=== PATIENT | female | born 1950 | race Caucasian/White ===

== ENCOUNTER 2022-02-04 12:33 | Emergency (ER) | payer OTHER, SELFPAY ==
[2022-02-04 12:37] VITALS: BP 108/69; PULSE 56; RESP 14; TEMP 36.5; O2SAT 97; BMI 33.4
--- NOTE | 2022-02-04 12:49 | EKG12_ITS ---
Test Reason : SOB Blood Pressure : / mmHG Vent. Rate : 054 BPM Atrial Rate : 054 BPM P-R Int : 136 ms QRS Dur : 080 ms QT Int : 438 ms P-R-T Axes : 041 023 040 degrees QTc Int : 415 ms Sinus bradycardia Otherwise normal ECG Confirmed by HAFSA GUIDRY, KATHERINE ([id number]), food expeditor JIAN ORTEZ ([id number]) on 02/06/2022 9:18:06 AM Referred By: Confirmed By:KATHERINE PEREYRA MD
--- NOTE | 2022-02-04 12:50 | ED.VIS.DYS ---
HPI History of Present Illness Chief Complaint: Shortness of Breath Informant: patient Onset/Context/Timing Onset: Yesterday Context: sudden and onset Timing: Intermittent Quality: Positive for - (Feeling short of breath) Current Severity: Gone Maximum Severity: Moderate Worsened by: - (Stress) Relieved by: Nothing Associated Symptoms Negative for cough Chest Pain: Positive for None Narrative Narrative: Patient with intermittent dyspnea, she thinks it is caused by stress. She is homeless, she has been sleeping in a motel she states that she has no more money to pay for that now so tonight she will be sleeping in her car. She thinks it is causing stress that is causing her to feel short of breath, but she has a history of atrial fibrillation, she is on Xarelto and has been compliant with that, and wonders if she is going in and out of atrial fibrillation or having something else happened. She denies any chest discomfort, palpitations, lightheadedness or near syncope/syncope, leg pain or swelling, recent immobilization, cough, fevers. She feels very fatigued however. [facility] Medical History (Updated 02/04/22 @ 14:[address] Demario Moreira MD) Atrial fibrillation Allergy/AdvReac Type Severity Reaction Status Date / Time amoxicillin [From Amoxil] Allergy Hives Verified 02/04/22 12:36 doxycycline Allergy Hives Verified 02/04/22 12:36 tramadol Allergy Hives Verified 02/04/22 12:37 azithromycin AdvReac Nausea Verified 02/04/22 12:36 codeine AdvReac Itching Verified 02/04/22 12:37 [id number] Reductase AdvReac Other Verified 02/04/22 12:36 Inhibitor Social History Smoking Status: Never smoker ROS ROS ED Constitutional Constitutional ED: Denies chills or fever(s) Eyes Eyes: Denies change in vision or diplopia ENT ENT ED: Denies rhinorrhea or sore throat Cardiovascular Cardiovascular: Denies chest pain, palpitations or racing heartbeat Respiratory/Chest Respiratory/Chest: Reports as per HPI and dyspnea; Denies cough or dyspnea on exertion Gastrointestinal Gastrointestinal: Denies abdominal pain, diarrhea, nausea or vomiting Genitourinary Genitourinary ED: Denies dysuria or hematuria Musculoskeletal Musculoskeletal: Denies back pain or neck pain Integumentary Denies abscess or rash Neurologic Neurologic: Denies headache(s), paresthesias or weakness Psychiatric Psychiatric: Reports anxiety and depression; Denies suicidal ideation or suicidal thoughts EXAM Physical Exam Const Vital Signs: 02/04/22 12:37 02/04/22 13:32 02/04/22 13:33 Temperature 97.7 F L Temperature Source Temporal Pulse Rate 56 L Respiratory Rate 14 Respiratory Effort Normal Non-Labored Respiratory Depth Normal Respiratory Pattern Normal Blood Pressure 108/69 Blood Pressure Mean 82 Pulse Ox 97 94 Oxygen Delivery Method Room Air Room Air Room Air Positive well nourished and well developed General Appearance ED: well developed and NAD HEENT Reports moist mucous membranes normocephalic and atraumatic Eyes PERRL and EOMs intact bilaterally Neck full ROM and supple Resp normal respiratory effort and clear to auscultation bilaterally Cardio regular rate, regular rhythm and no murmurs Cardio Narrative: Borderline bradycardia GI non-tender and non-distended Auscultation: normoactive bowel sounds Palpation: soft Back/Spine no CVA tenderness General Back: other FROM Extremity normal to inspection General Extremety ED: Negative for edema, pulses abnormal or tenderness General Extremity: Negative for edema or pulses abnormal Neuro oriented x3, CN's II-XII intact bilaterally, no sensory deficits noted and gait normal Sensorium / Orientation: awake and alert Motor Exam: strength 5/5 throughout Psych mental status grossly normal Skin no rashes or lesions noted and no wounds MDM MDM MDM Narrative Medical decision making narrative: EKG and troponin normal, not in A. fib and no telemetry events while here in the ED. Chest x-ray normal on my interpretation 1 view. Radiology in agreement. Labs are unremarkable except for mild leukopenia nonspecific. She has no clinical signs of a DVT nor risk factors for thromboembolic disease, pulse ox is 97% on room air, and she is not tachycardic. For these reasons I do not think we need to work-up for pulmonary embolus for the symptoms. Patient is reassured and discharged, we do not have social work available today to help her with regards to her social issues, nursing to give her information for local intermediate. Lab Data Attestation: I reviewed the patient's lab results. Labs: Laboratory Results - last 24 hr 02/04/22 02/04/22 13:25 13:25 WBC 3.1 L RBC 4.36 Hgb 13.2 Hct 40.0 MCV 91.7 MCH 30.3 MCHC 33.0 RDW Std Deviation 42.8 RDW Coeff of Kristian 12.9 Plt Count 138 L MPV 10.7 Immature Gran % (Auto) 0.300 Neut % (Auto) 69.8 Lymph % (Auto) 19.1 [place] % (Auto) 8.3 Eos % (Auto) 2.2 Baso % (Auto) 0.3 Absolute Neuts (auto) 2.2 Absolute Lymphs (auto) 0.60 L Nucleated RBC % 0 Sodium 143 Potassium 4.2 Chloride 109 H Carbon Dioxide 30.0 Anion Gap 4 L BUN 14 Creatinine 1.11 H Estim Creat Clear Calc 39.01 Est GFR (MDRD) Af Amer 62 Est GFR (MDRD) Non-Af 52 L BUN/Creatinine Ratio 12.6 Glucose 88 Calcium 8.6 Troponin I High Sens 6 Radiography Chest X-Ray - ED: 1 View, Read by ED Physician, No Acute Disease and No Infiltrates Diagnostic Testing: Clinical Impression(s) from Imaging Studies Chest X-Ray 02/04/22 13:08 IMPRESSION: No acute cardiopulmonary process identified. Borderline cardiomegaly. Electronically Signed: Rachel Wiley MD at 13:23 EDT Reading Location ID and State: [facility] / [place] Tel , Service support , Rhythm Strip Rhythm Strip: Sinus Rhythm Rate: 55 Ectopy: None EKG Initial EKG: Attestation: I personally reviewed and interpreted this EKG as follows: Interpretation: Sinus Rhythm and No Acute Injury Pattern Discharge Plan Triage Chief Complaint: Shortness of Breath ED Provider: Demario Moreira Dx/Rx/DC Orders Clinical Impression: Dyspnea, Anxiety Instructions: ED Anxiety Reaction, ED Dyspnea Primary Care Provider: Care Physician,No Primary Referrals: Dee Albert [Non-Staff] - 1 Week if not improving Care Physician,No Primary [Primary Care Provider] - Disposition Disposition: Home, Self Care
--- NOTE | 2022-02-04 13:08 | RAD_ITS ---
HISTORY: chest pain. TECHNIQUE: XR Chest 1 View. COMPARISON: None. FINDINGS: CARDIOMEDIASTINAL BORDERS: Cardiac silhouette upper limits of normal in size with mitral valvular calcification. Mediastinal contour unremarkable with calcification of the aortic knob. LUNGS: Radiographically clear. PLEURA: No pleural effusion or pneumothorax seen. OSSEOUS STRUCTURES: Cervical spinal fusion hardware. RAD/Chest 1 View (Portable) IMPRESSION: No acute cardiopulmonary process identified. Borderline cardiomegaly. Electronically Signed: Rachel Wiley MD at 13:23 EDT ,
[2022-02-04 13:32] VITALS: O2SAT 94
[2022-02-04 13:33] VITALS: O2SAT 95
--- NOTE | 2022-02-04 13:38 | ED.RN ---
PER PT SHE AND HER SISTER (ALSO IN THE ED FOR STROKE ALERT) ARE HOMELESS. THEY WERE STAYING IN A HOTEL AFTER BEING KICKED OUT OF DAUGHTER'S HOME BY SON IN LAW. PT STATES SHE WILL RECEIVE A CHECK ON SUNDAY BUT UNTIL THEN HAS NOWHERE TO STAY, AND NO FUNDS. PT STATES THEY HAVE APPLIED AND ARE IN PROCESS OF GETTING AN APARTMENT. PT CALLED MAGDY ALONZO AND Brendan WITH THIS RN IN ROOM, NEITHER HAS ANY OPEN BEDS. 180 ATTEMPTED TO GIVE PT LIST OF SHELTERS OUTSIDE OF [facility], BUT PT STATES SHE DOESN'T HAVE ENOUGH GAS TO LEAVE [facility]. PT AND SISTER ALSO HAVE 3 DOGS AND 2 CATS IN VEHICLE PARKED OUTSIDE OF ED. JUDGE PAGED TO CALL THIS RN REGARDING SITUATION.
[2022-02-04 13:42] LABS: Absolute Neutrophil Count 2.2 X10^3/uL (2.0-7.7); Basophil# 0.01 X10^3/uL; Basophil% 0.3 % (0-1); Eosinophil# 0.07 X10^3/uL; Eosinophils% 2.2 % (0-5); Hemoglobin 13.2 g/dL (12.0-15.0); Lymphocyte % 19.1 % (19-41); Mean Corpuscular Hgb 30.3 pg (27.0-32.0); Mean Corpuscular Volume 91.7 fL (81-99); Mean Platelet Vol. 10.7 fl (6.2-12.0); Monocyte# 0.26 X10^3/uL; Monocyte% 8.3 % (0-10); NRBC Flagged by Analyzer 0 % (0-5); Neutrophil # 2.19 X10^3/uL (2.7-7.7); Neutrophil % 69.8 % (47-70); POSITIVE DIFFERENTIAL YES; Platelet Count 138 K/mm3 (150-450); RBC Distribution Width CV 12.9 % (11.6-14.6); RBC Distribution Width SD 42.8 fl (35.1-43.9); Red Blood Count 4.36 M/mm3 (4.2-5.4); White Blood Count 3.1 K/mm3 (4.4-11.0)
[2022-02-04 13:45] LABS: Differential Indicated SCAN CRITERIA MET
[2022-02-04 13:53] LABS: Anion Gap 4 (5-15); BUN 14 mg/dL (7-18); BUN/Creat Ratio 12.6 RATIO (10-20); Calcium,Total 8.6 mg/dL (8.5-10.1); Chloride 109 mmol/L (98-107); Creatinine, Serum 1.11 mg/dL (0.55-1.02); EST Glomerular Filtration Rate 52 mL/min (>60); Est Glom Filt Rate - Afr Amer 62 mL/min (>60); Estimated Creatinine Clearance 39.01 ml/min; Glucose 88 mg/dL (74-106); Potassium 4.2 mmol/L (3.5-5.1); Sodium Level 143 mmol/L (136-145); Troponin-I HS 6 pg/mL (3.0-54.0)
[2022-02-04 14:33] LABS: Anisocytosis 3.1; Burr Cells 3.1; Reactive Lymphocyte 1+
--- NOTE | 2022-02-04 15:15 | ED.RN ---
PER CHAIN TENDER PT ABLE TO STAY IN SISTER'S HOSP ROOM OVER WEEKEND. CLAIM TAKER TO COME GET DOGS, [employer] DECLINES CATS UNLESS PT ABLE TO SURRENDER. PT AWARE, FOOD GIVEN,
[2022-02-06 11:53] LABS: Pathologist Review Reviewed
== END 2022-02-04 15:19 | disposition home or self-care (01) ==
PROVIDERS: Emergency Provider Emergency Medicine; Visit Provider Emergency Medicine
DX: R06.00 Dyspnea, unspecified (principal); F41.9 Anxiety disorder, unspecified; Z59.00 Homelessness unspecified
CPT/HCPCS: 71045; 80048; 84484; 85025; 87811; 93005; 99284; A4216

== ENCOUNTER 2022-03-16 12:14 | Emergency (ER) | payer OTHER, SELFPAY ==
[2022-03-16 12:14] VITALS: BP 136/108; PULSE 81; RESP 18; TEMP 39; O2SAT 97; BMI 32.9
--- NOTE | 2022-03-16 12:52 | EKG12_ITS ---
Test Reason : WEAKNESS Blood Pressure : / mmHG Vent. Rate : 082 BPM Atrial Rate : 082 BPM P-R Int : 134 ms QRS Dur : 074 ms QT Int : 342 ms P-R-T Axes : 044 039 060 degrees QTc Int : 399 ms Normal sinus rhythm Normal ECG Confirmed by TINO GUIDRY, DYLAN ([id number]), sound editor JIAN ORTEZ ([id number]) on 03/21/2022 10:35:36 AM Referred By: CARLYLE Confirmed By:DARLENE JIMÉNEZ MD
--- NOTE | 2022-03-16 12:53 | EDS_ITS ---
HPI History of Present Illness Chief Complaint: Fall Narrative Narrative: 71-year-old female presenting with generalized weakness. She states she has been feeling ill for about 10 hours. She has no sick contacts. She states she has a mild cough, shortness of breath. She had a fever at home today. She took Tylenol about 4 hours ago. She states she felt weak and fell to the floor landing on her buttocks. Initially she complained of back pain and hip pain but now states it is all resolved. She states she has vomited today. She states she was getting ready to go to the grocery store when she felt nauseous and vomited. She denies head injury or LOC. She states she might of had chest pain right before she fell. [facility] Medical History Atrial fibrillation Home Medications acetaminophen 500 mg tablet 1,000 mg PO Q8H PRN PRN fever or pain #60 tabs 03/16/22 [Rx Last Taken Unknown] diphenhydramine HCl 50 mg capsule 50 - 100 mg PO QHS PRN ALLERGIES 03/16/22 [History Last Taken Unknown] gabapentin 300 mg capsule 300 mg PO BID 03/16/22 [History Last Taken Unknown] ibuprofen 600 mg tablet 600 mg PO Q8H PRN PRN fever or pain #30 tabs 03/16/22 [Rx Last Taken Unknown] levofloxacin 750 mg tablet 750 mg PO DAILY #4 tabs 03/16/22 [Rx Last Taken Unknown] levothyroxine 75 mcg tablet 75 mcg PO DAILY 03/16/22 [History Last Taken Unknown] lisinopril 20 mg tablet 20 mg PO DAILY 03/16/22 [History Last Taken Unknown] metoprolol succinate 50 mg capsule sprinkle, ext. release 24 hr 50 mg PO DAILY 03/16/22 [History Last Taken Unknown] omeprazole 20 mg capsule,delayed release 20 mg PO BID 03/16/22 [History Last Taken Unknown] ondansetron 4 mg disintegrating tablet 4 mg PO Q8H PRN nausea and vomiting #14 tabs 03/16/22 [Rx Last Taken Unknown] rivaroxaban 20 mg tablet (Xarelto) 20 mg PO DAILY 03/16/22 [History Last Taken Unknown] Allergy/AdvReac Type Severity Reaction Status Date / Time amoxicillin [From Amoxil] Allergy Hives Verified 03/16/22 12:22 doxycycline Allergy Hives Verified 03/16/22 12:22 tramadol Allergy Hives Verified 03/16/22 12:22 azithromycin AdvReac Nausea Verified 03/16/22 12:22 codeine AdvReac Itching Verified 03/16/22 12:22 [id number]-AJC-FpW Reductase AdvReac Other Verified 03/16/22 12:22 Inhibitor Social History Smoking Status: Never smoker ROS ROS ED Constitutional Constitutional ED: Reports fever(s) and other Details: Generalized weakness Eyes Eyes: Denies change in vision or diplopia ENT ENT ED: Denies rhinorrhea or sore throat Cardiovascular Cardiovascular: Reports chest pain Respiratory/Chest Respiratory/Chest: Reports cough and dyspnea Gastrointestinal Gastrointestinal: Reports nausea and vomiting Genitourinary Genitourinary ED: Denies dysuria or hematuria Musculoskeletal Musculoskeletal: Denies neck pain Integumentary Denies Abrasions or rash Neurologic Neurologic: Reports headache(s); Denies paresthesias Psychiatric Psychiatric: Denies anxiety or depression EXAM Physical Exam Const Vital Signs: 03/16/22 12:14 03/16/22 12:33 03/16/22 13:01 Temperature 102.2 F H Temperature Source Oral Pulse Rate 81 Respiratory Rate 18 Respiratory Effort Normal Blood Pressure 136/108 H Blood Pressure Mean 117 Pulse Ox 97 94 Oxygen Delivery Method Room Air Room Air Positive well nourished General Appearance ED: NAD; Negative for pallor HEENT Reports dry mucous membranes Negative for trauma Mouth ED: Yes dry mucous membranes Mouth: dry mucous membranes Eyes PERRL and EOMs intact bilaterally Neck no lymphadenopathy Chest Wall inspection of chest normal Resp normal respiratory effort Resp Narrative: Rhonchi noted to left abdomen. Mid and lower lung moralez. Effort and Inspection: Negative for retractions Auscultation: rhonchi; Negative for wheezes Cardio regular rate and regular rhythm GI normal to inspection, nondistended, normoactive bowel sounds Extremity normal to inspection Neuro oriented x3 and CN's II-XII intact bilaterally Sensorium / Orientation: alert Psych mental status grossly normal Skin no rashes or lesions noted and no wounds General Skin Exam: Negative for jaundice or pallor MDM MDM MDM Narrative Medical decision making narrative: Patient presenting with generalized weakness, fever, body aches. She states she had a mechanical fall but states she does not have any more pain in her buttocks or her back. She is able to move her lower extremities although she feels generally weak. Blood work is obtained and her CBC is within normal limits. Renal function electrolytes are normal. Because she stated she had some pain prior to falling I did obtain a troponin which is 10. On my interpretation EKG sinus rhythm with a ventricular rate of 82 bpm without sign of ischemic change or dysrhythmia. Chest x-ray on my interpretation shows a left lower lobe infiltrate. CBC was obtained and her white blood cell 6.9. Hemoglobin hematocrit are stable. Platelets slightly low at 108. Creatinine 1.12 and at baseline. Electrolytes are normal. High-sensitivity troponin initially 10. 2- hour high-sensitivity troponin is 12. There is no significant interval change. D-dimer was elevated today at 0.91 so I did obtain a CTA. This also shows left lower lobe infiltrate. Patient's rapid COVID and influenza are negative. She was ambulated in the hallway and maintain normal O2 saturations. She feels much better after fluid hydration. Her fevers improved. She states that she wants to go home. Given that she is well-appearing with stable vital signs and normal lab work I feel this is reasonable. She is allergic to penicillin, doxycycline, azithromycin so I will start her on Levaquin. She is given the first dose in the ER. She was given prescriptions for Tylenol, ibuprofen, Zofran, Levaquin via paper prescription because she states she has to go into [place] to fill these at the [facility]. Patient was given return precautions. Impression: 1. Fall 2. Febrile illness 3. Generalized weakness 4. Left lower lobe pneumonia Lab Data Attestation: I reviewed the patient's lab results. Labs: Laboratory Results - last 24 hr 03/16/22 03/16/22 03/16/22 13:10 13:10 13:10 WBC 6.9 RBC 4.73 Hgb 13.9 Hct 43.5 MCV 92.0 MCH 29.4 MCHC 32.0 RDW Std Deviation 41.1 RDW Coeff of Kristian 12.4 Plt Count 108 L MPV 11.0 Immature Gran % (Auto) 0.400 Neut % (Auto) 87.7 H Lymph % (Auto) 5.6 L Hart % (Auto) 6.1 Eos % (Auto) 0.1 Baso % (Auto) 0.1 Absolute Neuts (auto) 6.1 Absolute Lymphs (auto) 0.39 L Nucleated RBC % 0 Differential Comment SCANNED D-Dimer Quant (PE/DVT) 0.91 H* Sodium 143 Potassium 3.7 Chloride 108 H Carbon Dioxide 30.0 Anion Gap 5 BUN 10 Creatinine 1.12 H Estim Creat Clear Calc 38.66 Est GFR (MDRD) Af Amer 62 Est GFR (MDRD) Non-Af 51 L BUN/Creatinine Ratio 8.9 L Glucose 126 H Calcium 8.5 Troponin I High Sens 10 Urine Color Urine Clarity Urine pH Ur Specific [place] Urine Protein Urine Glucose (UA) Urine Ketones Urine Occult Blood Urine Nitrite Urine Bilirubin Urine Urobilinogen Ur Leukocyte Esterase Urine RBC Urine WBC Ur Squamous Epith Cells Urine Bacteria Urine Mucus 03/16/22 03/16/22 13:42 15:48 WBC RBC Hgb Hct MCV MCH MCHC RDW Std Deviation RDW Coeff of Kristian Plt Count MPV Immature Gran % (Auto) Neut % (Auto) Lymph % (Auto) Hart % (Auto) Eos % (Auto) Baso % (Auto) Absolute Neuts (auto) Absolute Lymphs (auto) Nucleated RBC % Differential Comment D-Dimer Quant (PE/DVT) Sodium Potassium Chloride Carbon Dioxide Anion Gap BUN Creatinine Estim Creat Clear Calc Est GFR (MDRD) Af Amer Est GFR (MDRD) Non-Af BUN/Creatinine Ratio Glucose Calcium Troponin I High Sens 12 Urine Color Yellow Urine Clarity Clear Urine pH 8.0 Ur Specific [place] 1.010 Urine Protein Negative Urine Glucose (UA) Normal Urine Ketones Negative Urine Occult Blood 10 H Urine Nitrite Negative Urine Bilirubin Negative Urine Urobilinogen Normal Ur Leukocyte Esterase Negative Urine RBC 0 SEEN Urine WBC 0 SEEN Ur Squamous Epith Cells 0-5 SEEN Urine Bacteria 0 SEEN Urine Mucus 0 SEEN Radiography Diagnostic Testing: Clinical Impression(s) from Imaging Studies Chest X-Ray 03/16/22 13:15 IMPRESSION: No acute abnormality is seen. Electronically Signed: Chris Odonnell MD at 13:34 EST , Chest CTA 03/16/22 13:51 IMPRESSION: Patchy left lower lobe infiltrate. No evidence of pulmonary embolism. Electronically Signed: Chris Odonnell MD at 15:34 EST , Discharge Plan Triage Chief Complaint: Fall ED Provider: Lam Montes Dx/Rx/DC Orders Instructions: ED Pneumonia (Adult), ED Fall Prevention Prescriptions: New levofloxacin 750 mg tablet 750 mg PO DAILY Qty: 4 0RF ibuprofen 600 mg tablet 600 mg PO Q8H PRN PRN (Reason: fever or pain) Qty: 30 0RF acetaminophen 500 mg tablet 1,000 mg PO Q8H PRN PRN (Reason: fever or pain) Qty: 60 0RF ondansetron 4 mg tablet,disintegrating 4 mg PO Q8H PRN (Reason: nausea and vomiting) Qty: 14 0RF No Action lisinopril 20 mg Tablet 20 mg PO DAILY omeprazole 20 mg Capsule,Delayed Release(Dr/Ec) 20 mg PO BID Primary Care Provider: [facility] Referrals: Care Physician,No Primary [Non-Staff] - Disposition Disposition: Home, Self Care
[2022-03-16 13:01] VITALS: O2SAT 94
[2022-03-16] MEDS: Ketorolac 15 MG/ML Vial IV (13:14)
[2022-03-16] MEDS: 0.9% Normal Saline 1,000 ML 999 ML IV (13:15)
--- NOTE | 2022-03-16 13:15 | RAD_ITS ---
STUDY: X-RAY CHEST REASON FOR EXAM: Female, 71 years old. Chest pain TECHNIQUE: Single AP portable view of the chest. COMPARISON: Comparison is made with prior study 02/04/2022. FINDINGS: EKG electrodes are seen. The lungs are clear and expanded. There is no demonstrated pleural abnormality. There is mild cardiac enlargement. Mitral valve calcification. Normal mediastinum and tova. Normal visualized pulmonary arteries. There is atherosclerotic tortuosity of the aortic arch and descending thoracic aorta. There are degenerative changes of the visualized thoracic spine. Prior fusion of the lower cervical spine. There is no demonstrated abnormality of the visualized soft tissue structures of the upper abdomen. RAD/Chest 1 View (Portable) IMPRESSION: No acute abnormality is seen. Electronically Signed: Chris Odonnell MD at 13:34 EST ,
[2022-03-16 13:30] LABS: Absolute Lymphocyte Count 0.39 X10^3/uL (0.83-4.51); Absolute Neutrophil Count 6.1 X10^3/uL (2.0-7.7); Basophil# 0.01 X10^3/uL; Basophil% 0.1 % (0-1); Eosinophil# 0.01 X10^3/uL; Eosinophils% 0.1 % (0-5); Hematocrit 43.5 % (37-47); Hemoglobin 13.9 g/dL (12.0-15.0); Lymphocyte # 0.39 X10^3/ul (0.83-4.51); Lymphocyte % 5.6 % (19-41); Mean Corpuscular Hgb 29.4 pg (27.0-32.0); Monocyte# 0.42 X10^3/uL; Monocyte% 6.1 % (0-10); NRBC Flagged by Analyzer 0 % (0-5); Neutrophil # 6.06 X10^3/uL (2.7-7.7); Neutrophil % 87.7 % (47-70); POSITIVE DIFFERENTIAL YES; Platelet Count 108 K/mm3 (150-450); RBC Distribution Width CV 12.4 % (11.6-14.6); RBC Distribution Width SD 41.1 fl (35.1-43.9); Red Blood Count 4.73 M/mm3 (4.2-5.4); White Blood Count 6.9 K/mm3 (4.4-11.0)
[2022-03-16 13:33] LABS: Differential Indicated SCAN CRITERIA MET
[2022-03-16 13:42] LABS: D-Dimer Quantitative (DVT/PE) 0.91 FEU/ug/m (0.27-0.49)
[2022-03-16 13:45] LABS: Differential Comment SCANNED
[2022-03-16 13:47] LABS: Bacteria 0 SEEN /hpf (None Seen); Mucous, Urine 0 SEEN /hpf (<or=2+); Red Blood Cells-Urine 0 SEEN /hpf (0-5); White Blood Cells 0 SEEN /hpf (0-5)
[2022-03-16 13:51] LABS: Color, Urine Yellow (Yellow); Glucose, Dipstick Normal (Normal); Ketone-Dipstick Negative (Negative); Leukocyte Esterase-Dipstick Negative /ul (Negative); Nitrite-Dipstick Negative (Negative); Occult Blood-Urine 10 /ul (Negative); Protein-Dipstick Negative (Negative); Urine Bilirubin Dipstick Negative (Negative); Urine Clarity Clear (Clear); Urine Urobilinogen Normal (Normal)
--- NOTE | 2022-03-16 13:51 | CT_ITS ---
STUDY: CTA CHEST REASON FOR EXAM: Female, 71 years old. Cough and fever. Fell out of bed. Fall. RADIATION DOSAGE (If Supplied By Facility): CTDIvol = ( 12.96 ) mGy, DLP = ( 236.10 ) mGycm TECHNIQUE: The examination was performed with the intravenous administration of IV. Post-processing of the angiographic images was performed, with multiplanar reformation and 3D reconstruction. Individualized dose optimization techniques were used for this CT. COMPARISON: Comparison is made with prior chest radiograph done earlier today. FINDINGS: Normal enhancement of the main pulmonary artery and right and left pulmonary arteries. Normal enhancement of the bilateral peripheral pulmonary arteries. There is no demonstrated pulmonary embolism. There is atherosclerotic calcification of the aortic arch with tortuosity. There is no demonstrated aortic dissection. There are calcifications of the coronary arteries. Normal mediastinum. Normal hilar regions. Normal visualized trachea and bronchi. The lungs are well expanded. Patchy infiltrate in the left lower lobe. Normal pleura. Normal chest wall structures. Normal osseous structures. Normal visualized upper abdomen. CT/CTA Chest W/WO Contrast IMPRESSION: Patchy left lower lobe infiltrate. No evidence of pulmonary embolism. Electronically Signed: Chris Odonnell MD at 15:34 EST ,
[2022-03-16 14:03] LABS: Squamous Epithelial Cells - UA 0-5 SEEN /hpf (5-10)
[2022-03-16 14:31] LABS: Anion Gap 5 (5-15); BUN 10 mg/dL (7-18); BUN/Creat Ratio 8.9 RATIO (10-20); Calcium,Total 8.5 mg/dL (8.5-10.1); Chloride 108 mmol/L (98-107); Creatinine, Serum 1.12 mg/dL (0.55-1.02); EST Glomerular Filtration Rate 51 mL/min (>60); Est Glom Filt Rate - Afr Amer 62 mL/min (>60); Estimated Creatinine Clearance 38.66 ml/min; Glucose 126 mg/dL (74-106); Potassium 3.7 mmol/L (3.5-5.1); Sodium Level 143 mmol/L (136-145); Troponin-I HS (w/2H Reflex) 10 pg/mL (3.0-54.0)
[2022-03-16 15:23] LABS: Reflex Troponin-HS? (from REC) Y
[2022-03-16 16:15] LABS: Troponin-I HS 12 pg/mL (3.0-54.0)
[2022-03-16 16:44] VITALS: O2SAT 92
[2022-03-16] MEDS: levoFLOXacin 750 MG Tablet PO (16:58)
== END 2022-03-16 17:08 | disposition home or self-care (01) ==
PROVIDERS: Emergency Provider Student in an Organized Health Care Education/Training Program; Visit Provider Student in an Organized Health Care Education/Training Program
DX: J18.9 Pneumonia, unspecified organism (principal); R07.9 Chest pain, unspecified; R06.00 Dyspnea, unspecified; R11.2 Nausea with vomiting, unspecified; R51.9 Headache, unspecified
CPT/HCPCS: 71045; 71275; 80048; 81001; 84484; 85025; 85379; 87428; 93005; 96374; 99285; J7030; Q9967; A4216

== ENCOUNTER 2022-03-18 15:32 | Emergency (ER) | payer OTHER, SELFPAY ==
[2022-03-18] VITALS (8 sets, daily range): BP systolic 124–149; BP diastolic 64–85; PULSE 70–79; RESP 16–18; TEMP 36.7–36.9; O2SAT 95–98; BMI 32.6
--- NOTE | 2022-03-18 15:55 | EX.ED.VIS.UR ---
HPI HPI - URI History of Present Illness Chief Complaint: Cough Detail of Chief Complaint: Cough and not feeling well x3 days Informant: patient Narrative Narrative: Patient presents to the emergency department via EMS with complaint of a cough. Patient states that this started 3 days ago and she was initially seen in the emergency department and diagnosed with pneumonia and was started on antibiotics. Patient states that subsequently she has had some blood in her productive cough yesterday but that seems to have now cleared. Patient is on Xarelto for history of DVT. Patient denies chest pain but does complain of some pain between her shoulder blades. Patient was not feeling well today and was feeling somewhat woozy and is still bringing up large amounts of brown to yellow phlegm and [facility] and get [facility]uated. Patient denies fever. ROS ROS ED Review of Systems ROS Unobtainable: other Constitutional Constitutional ED: Reports lethargy; Denies chills, fever(s), sweats or weight loss Eyes Eyes: Denies blurry vision, change in vision or diplopia ENT ENT ED: Denies rhinorrhea or sore throat Cardiovascular Cardiovascular: Denies chest pain, orthopnea or racing heartbeat Respiratory/Chest Respiratory/Chest: Reports cough, dyspnea, dyspnea on exertion and sputum; Denies orthopnea Gastrointestinal Gastrointestinal: Denies abdominal pain, diarrhea, nausea or vomiting Genitourinary Genitourinary ED: Denies dysuria, hematuria or urinary frequency Musculoskeletal Musculoskeletal: Denies arthralgias, back pain, myalgias or neck pain Integumentary Denies abscess, Abrasions or rash Neurologic Neurologic: Denies headache(s) or weakness Psychiatric Psychiatric: Denies anxiety, depression or suicidal thoughts Endocrine Endocrinology: Denies polydipsia, polyphagia or polyuria Hematologic/Lymphatic Hematologic/Lymphatic: Denies easy bleeding, easy bruising or lymphadenopathy Allergic/Immunologic Allergic/Immunologic ED: Denies mouth swelling, tongue swelling or urticaria PFSH PFS Medical History (Updated 03/18/22 @ 18:[address] Jessica Harman DO) Atrial fibrillation DVT (deep venous thrombosis) Home Medications diphenhydramine HCl 50 mg capsule 50 - 100 mg PO QHS PRN ALLERGIES 03/16/22 [History Last Taken Unknown] gabapentin 300 mg capsule 300 mg PO BID 03/16/22 [History Last Taken Unknown] levofloxacin 750 mg tablet 750 mg PO DAILY #4 tabs 03/16/22 [Rx Last Taken Unknown] levothyroxine 75 mcg tablet 75 mcg PO DAILY 03/16/22 [History Last Taken Unknown] lisinopril 20 mg tablet 20 mg PO DAILY 03/16/22 [History Last Taken Unknown] metoprolol succinate 50 mg capsule sprinkle, ext. release 24 hr 50 mg PO DAILY 03/16/22 [History Last Taken Unknown] omeprazole 20 mg capsule,delayed release 20 mg PO BID 03/16/22 [History Last Taken Unknown] ondansetron 4 mg disintegrating tablet 4 mg PO Q8H PRN nausea and vomiting #14 tabs 03/16/22 [Rx Last Taken Unknown] rivaroxaban 20 mg tablet (Xarelto) 20 mg PO DAILY 03/16/22 [History Last Taken Unknown] Allergy/AdvReac Type Severity Reaction Status Date / Time amoxicillin [From Amoxil] Allergy Hives Verified 03/18/22 15:41 doxycycline Allergy Hives Verified 03/18/22 15:41 tramadol Allergy Hives Verified 03/18/22 15:41 azithromycin AdvReac Nausea Verified 03/18/22 15:41 codeine AdvReac Itching Verified 03/18/22 15:41 [id number] Reductase AdvReac Other Verified 03/18/22 15:41 Inhibitor Surgical History (Updated 03/18/22 @ 15:45 by Becky Mariee) H/O section H/O foot surgery H/O spinal fusion History of bilateral knee replacement Social History Smoking Status: Never smoker EXAM Physical Exam Const Vital Signs: 03/18/22 15:34 03/18/22 15:38 03/18/22 15:41 Temperature 98.1 F 98.1 F Temperature Source Temporal Temporal Pulse Rate 78 77 Respiratory Rate 16 18 Respiratory Effort Normal Non-Labored Respiratory Depth Normal Respiratory Pattern Tachypnea Blood Pressure 131/64 H 131/64 H Blood Pressure Mean 86 86 Pulse Ox 96 97 Oxygen Delivery Method Room Air Room Air Room Air 03/18/22 16:38 03/18/22 17:00 03/18/22 17:33 Temperature 98.0 F 98.3 F 98.4 F Temperature Source Temporal Temporal Temporal Pulse Rate 71 72 76 Respiratory Rate 16 18 18 Respiratory Effort Respiratory Depth Respiratory Pattern Blood Pressure 146/77 H 138/74 H 124/85 H Blood Pressure Mean 100 95 98 Pulse Ox 96 97 96 Oxygen Delivery Method Room Air Room Air Room Air 03/18/22 18:13 03/18/22 18:17 Temperature Temperature Source Pulse Rate 70 79 Respiratory Rate 16 Respiratory Effort Respiratory Depth Respiratory Pattern Blood Pressure 149/83 H 148/82 H Blood Pressure Mean 105 Pulse Ox 96 98 Oxygen Delivery Method Positive well nourished and well developed General Appearance ED: well developed and NAD HEENT Reports TM's clear and moist mucous membranes normocephalic and atraumatic; Negative for trauma or tenderness Tympanic Membrane ED: Yes TM's clear Eyes PERRL and EOMs intact bilaterally General Eye ED: Negative for pale conjunctiva or scleral icterus Neck no lymphadenopathy, supple and no JVD General: Negative for tenderness Chest Wall inspection of chest normal and palpation of chest normal Chest: Negative for tenderness Resp normal respiratory effort and clear to auscultation bilaterally Effort and Inspection: Negative for respiratory distress or pain with movement Auscultation: Negative for rhonchi, wheezes or diminished lung sounds Cardio regular rate, regular rhythm, S1 normal heart sound, S2 normal heart sound and no murmurs Peripheral Pulses: pulses 2+ throughout GI normal to inspection, nondistended, normoactive bowel sounds, soft to palpation, non-tender, non-distended and no masses Back/Spine no CVA tenderness and no thoracic nor lumbar tenderness Extremity normal to inspection General Extremety ED: Negative for edema General Extremity: Negative for edema Neuro oriented x3, CN's II-XII intact bilaterally, no sensory deficits noted and gait normal Sensorium / Orientation: awake, alert, oriented to person, oriented to place and oriented to time Motor Exam: strength 5/5 throughout and strength abnormal Psych mental status grossly normal Skin no rashes or lesions noted and no wounds MDM MDM MDM Narrative Medical decision making narrative: We attempted to obtain an IV however unsuccessful. We were able to draw labs and she got a white count of 3.8. Hemoglobin was 13 and hematocrit was 40. Chemistries unremarkable. BUN was 12 and creatinine 1.04 which is at her baseline. Lactate was 0.9. Chest x-ray showed poor inspiration with some bibasilar atelectasis otherwise nothing significant. Patient has normal vital signs otherwise. I do not feel she requires admission. She is not hypoxic. She is not tachypneic. Patient advised to continue with her Levaquin and finish that out and push fluids. Patient to follow-up with her primary care physician within next 3 to 5 days. She is advised to return if increased difficulty breathing or condition worsen anyway. Her hemoptysis is resolved apparently but she is advised to return if persistent heavy bleeding or condition should worsen. Lab Data Attestation: I reviewed the patient's lab results. Labs: Laboratory Results - last 24 hr 03/18/22 03/18/22 03/18/22 17:10 17:10 17:10 WBC 3.8 L RBC 4.35 Hgb 13.3 Hct 40.3 MCV 92.6 MCH 30.6 MCHC 33.0 RDW Std Deviation 42.1 RDW Coeff of Kristian 12.2 Plt Count 96 L MPV 11.1 Immature Gran % (Auto) 0.300 Neut % (Auto) 72.5 H Lymph % (Auto) 15.2 L [place] % (Auto) 10.4 H Eos % (Auto) 1.3 Baso % (Auto) 0.3 Absolute Neuts (auto) 2.7 Absolute Lymphs (auto) 0.57 L Nucleated RBC % 0 Differential Comment SCANNED Diff Path Review May foll Platelet Estimate MOD DEC Sodium 142 Potassium 3.8 Chloride 110 H Carbon Dioxide 27.0 Anion Gap 5 BUN 12 Creatinine 1.04 H Estim Creat Clear Calc 41.64 Est GFR (MDRD) Af Amer 67 Est GFR (MDRD) Non-Af 56 L BUN/Creatinine Ratio 11.5 Glucose 110 H Lactic Acid 0.9 Calcium 8.9 Radiography Diagnostic Testing: Clinical Impression(s) from Imaging Studies Chest X-Ray 03/18/22 17:30 IMPRESSION: Poor inspiration with some bibasilar atelectasis. Electronically Signed: Glen Moss MD at 17:52 EST , 1 view chest x-ray obtained interpreted by myself as increased markings both lower lobes. Radiology felt there was bibasilar atelectasis otherwise nothing acute. Discharge Plan Triage Chief Complaint: Cough ED Provider: Jessica Harman Dx/Rx/DC Orders Clinical Impression: Pneumonia Instructions: ED Pneumonia (Adult) Prescriptions: No Action lisinopril 20 mg Tablet 20 mg PO DAILY omeprazole 20 mg Capsule,Delayed Release(Dr/Ec) 20 mg PO BID levofloxacin 750 mg tablet 750 mg PO DAILY Qty: 4 0RF diphenhydramine HCl [Benadryl] 50 mg Capsule 50 - 100 mg PO QHS PRN (Reason: ALLERGIES) levothyroxine 75 mcg Tablet 75 mcg PO DAILY gabapentin 300 mg Capsule 300 mg PO BID Xarelto 20 mg Tablet 20 mg PO DAILY Rx Instructions: must administer with evening meal metoprolol succinate 50 mg Capsule,Sprinkle,Er 24hr 50 mg PO DAILY ondansetron 4 mg tablet,disintegrating 4 mg PO Q8H PRN (Reason: nausea and vomiting) Qty: 14 0RF [facility] - [facility]-5 Days Disposition Disposition: Home, Self Care Discharge Date/Time: 03/18/22 18:18
[2022-03-18 17:20] LABS: Absolute Lymphocyte Count 0.57 X10^3/uL (0.83-4.51); Absolute Neutrophil Count 2.7 X10^3/uL (2.0-7.7); Basophil# 0.01 X10^3/uL; Basophil% 0.3 % (0-1); Eosinophil# 0.05 X10^3/uL; Eosinophils% 1.3 % (0-5); Hematocrit 40.3 % (37-47); Hemoglobin 13.3 g/dL (12.0-15.0); Lymphocyte # 0.57 X10^3/ul (0.83-4.51); Lymphocyte % 15.2 % (19-41); Mean Corpuscular Hgb 30.6 pg (27.0-32.0); Mean Corpuscular Volume 92.6 fL (81-99); Mean Platelet Vol. 11.1 fl (6.2-12.0); Monocyte# 0.39 X10^3/uL; Monocyte% 10.4 % (0-10); NRBC Flagged by Analyzer 0 % (0-5); Neutrophil # 2.73 X10^3/uL (2.7-7.7); Neutrophil % 72.5 % (47-70); POSITIVE COUNT YES; POSITIVE DIFFERENTIAL YES; Platelet Count 96 K/mm3 (150-450); RBC Distribution Width CV 12.2 % (11.6-14.6); RBC Distribution Width SD 42.1 fl (35.1-43.9); Red Blood Count 4.35 M/mm3 (4.2-5.4); White Blood Count 3.8 K/mm3 (4.4-11.0)
[2022-03-18 17:30] LABS: Anion Gap 5 (5-15); BUN 12 mg/dL (7-18); BUN/Creat Ratio 11.5 RATIO (10-20); Calcium,Total 8.9 mg/dL (8.5-10.1); Chloride 110 mmol/L (98-107); Creatinine, Serum 1.04 mg/dL (0.55-1.02); EST Glomerular Filtration Rate 56 mL/min (>60); Est Glom Filt Rate - Afr Amer 67 mL/min (>60); Estimated Creatinine Clearance 41.64 ml/min; Glucose 110 mg/dL (74-106); Potassium 3.8 mmol/L (3.5-5.1); Sodium Level 142 mmol/L (136-145)
--- NOTE | 2022-03-18 17:30 | RAD_ITS ---
STUDY: X-RAY CHEST REASON FOR EXAM: Female, 71 years old. cough TECHNIQUE: Single AP portable view of the chest. COMPARISON: 03/16/2022 FINDINGS: Status post anterior cervical discectomy and fusion lower cervical spine. Poor inspiration with some bibasilar atelectasis. There is no demonstrated pleural abnormality. There is moderate cardiac enlargement. Normal mediastinum and tova. Normal visualized pulmonary arteries. Normal visualized aortic arch and descending thoracic aorta. Normal visualized thoracic spine. Normal visualized ribs, clavicles, and shoulders. There is no demonstrated abnormality of the visualized soft tissue structures of the upper abdomen. RAD/Chest PA and Lateral IMPRESSION: Poor inspiration with some bibasilar atelectasis. Electronically Signed: Glen Moss MD at 17:52 EST ,
[2022-03-18 17:49] LABS: Lactic Acid 0.9 mmol/L (0.4-1.9)
[2022-03-18 17:50] LABS: Differential Indicated SCAN CRITERIA MET
[2022-03-18 17:51] LABS: Differential Comment SCANNED
[2022-03-18 17:52] LABS: Platelet Estimate MOD DEC (ADEQ)
[2022-03-20 15:41] LABS: Pathologist Review Reviewed
== END 2022-03-18 18:18 | disposition home or self-care (01) ==
PROVIDERS: Emergency Provider Emergency Medicine; Visit Provider Emergency Medicine
DX: J18.9 Pneumonia, unspecified organism (principal); I48.91 Unspecified atrial fibrillation; M25.512 Pain in left shoulder; M25.511 Pain in right shoulder; Z79.890 Hormone replacement therapy; Z79.01 Long term (current) use of anticoagulants; Z79.899 Other long term (current) drug therapy; Z86.718 Personal history of other venous thrombosis and embolism
CPT/HCPCS: 71046; 80048; 83605; 85025; 99285; J7030; A4216

== ENCOUNTER 2022-05-21 11:32 | Emergency (ER) | payer OTHER, SELFPAY ==
[2022-05-21 11:34] VITALS: BP 139/66; PULSE 78; RESP 18; TEMP 37; O2SAT 98; BMI 33.0
--- NOTE | 2022-05-21 11:49 | EX.ED.DYSGE1 ---
HPI History of Present Illness Chief Complaint: Nausea/Vomiting/Diarrhea Detail of Chief Complaint: Vomiting and diarrhea Informant: patient Narrative Narrative: Patient presents with vomiting and diarrhea that started around 8:30 PM last evening. Patient states that she is thrown up more than 10 times and has had more than 8 or 9 watery stools. She denies any blood in her vomit or stool. Denies recent travel or recent antibiotic usage. She denies sick contacts. Patient describes intermittent abdominal discomfort. She denies urinary symptoms. She had some chills and some sweats but no documented fever. Patient states that she thought she was done with the illness this morning but then about 45 minutes prior to arrival in the ER she started vomiting again and had some yellow to orange discoloration to the vomit and so she comes in for evaluation by EMS. [facility] Medical History (Updated 05/21/22 @ 12:[address] Jessica Harman DO) Atrial fibrillation DVT (deep venous thrombosis) Home Medications diphenhydramine HCl 50 mg capsule 50 - 100 mg PO QHS PRN ALLERGIES 03/16/22 [History Last Taken Unknown] gabapentin 300 mg capsule 300 mg PO BID 03/16/22 [History Last Taken Unknown] levofloxacin 750 mg tablet 750 mg PO DAILY #4 tabs 03/16/22 [Rx Last Taken Unknown] levothyroxine 75 mcg tablet 75 mcg PO DAILY 03/16/22 [History Last Taken Unknown] lisinopril 20 mg tablet 20 mg PO DAILY 03/16/22 [History Last Taken Unknown] metoprolol succinate 50 mg capsule sprinkle, ext. release 24 hr 50 mg PO DAILY 03/16/22 [History Last Taken Unknown] omeprazole 20 mg capsule,delayed release 20 mg PO BID 03/16/22 [History Last Taken Unknown] ondansetron 4 mg disintegrating tablet 4 mg PO Q8H PRN nausea and vomiting #14 tabs 03/16/22 [Rx Last Taken Unknown] rivaroxaban 20 mg tablet (Xarelto) 20 mg PO DAILY 03/16/22 [History Last Taken Unknown] ondansetron 4 mg disintegrating tablet 4 mg PO Q8H PRN PRN Nausea #10 tabs 05/21/22 [Rx Last Taken Unknown] Allergy/AdvReac Type Severity Reaction Status Date / Time amoxicillin [From Amoxil] Allergy Hives Verified 05/21/22 11:35 doxycycline Allergy Hives Verified 05/21/22 11:35 tramadol Allergy Hives Verified 05/21/22 11:35 azithromycin AdvReac Nausea Verified 05/21/22 11:35 codeine AdvReac Itching Verified 05/21/22 11:35 [id number] Reductase AdvReac Other Verified 05/21/22 11:35 Inhibitor Surgical History H/O section H/O foot surgery H/O spinal fusion History of bilateral knee replacement Social History Smoking Status: Never smoker ROS ROS ED Review of Systems ROS Unobtainable: other Constitutional Constitutional ED: Reports lethargy; Denies chills, fever(s), sweats or weight loss Eyes Eyes: Denies blurry vision, change in vision or diplopia ENT ENT ED: Denies rhinorrhea or sore throat Cardiovascular Cardiovascular: Denies chest pain, orthopnea or racing heartbeat Respiratory/Chest Respiratory/Chest: Denies cough, dyspnea, dyspnea on exertion, orthopnea or sputum Gastrointestinal Gastrointestinal: Reports abdominal pain, diarrhea, nausea and vomiting Genitourinary Genitourinary ED: Denies dysuria, hematuria or urinary frequency Musculoskeletal Musculoskeletal: Denies arthralgias, back pain, myalgias or neck pain Integumentary Denies abscess, Abrasions or rash Neurologic Neurologic: Denies headache(s) or weakness Psychiatric Psychiatric: Denies anxiety, depression or suicidal thoughts Endocrine Endocrinology: Denies polydipsia, polyphagia or polyuria Hematologic/Lymphatic Hematologic/Lymphatic: Denies easy bleeding, easy bruising or lymphadenopathy Allergic/Immunologic Allergic/Immunologic ED: Denies mouth swelling, tongue swelling or urticaria EXAM Physical Exam Const Vital Signs: 05/21/22 11:34 Temperature 98.6 F Temperature Source Temporal Pulse Rate 78 Respiratory Rate 18 Blood Pressure 139/66 H Blood Pressure Mean 90 Pulse Ox 98 Oxygen Delivery Method Room Air Positive well nourished and well developed General Appearance ED: well developed and NAD HEENT Reports TM's clear and moist mucous membranes normocephalic and atraumatic; Negative for trauma or tenderness Tympanic Membrane ED: Yes TM's clear Eyes PERRL and EOMs intact bilaterally General Eye ED: Negative for pale conjunctiva or scleral icterus Neck no lymphadenopathy, supple and no JVD General: Negative for tenderness Chest Wall inspection of chest normal and palpation of chest normal Chest: Negative for tenderness Resp normal respiratory effort and clear to auscultation bilaterally Effort and Inspection: Negative for respiratory distress or pain with movement Auscultation: Negative for rhonchi, wheezes or diminished lung sounds Cardio regular rate, regular rhythm, S1 normal heart sound, S2 normal heart sound and no murmurs Peripheral Pulses: pulses 2+ throughout GI normal to inspection, nondistended, normoactive bowel sounds, soft to palpation, non-tender, non-distended and no masses Back/Spine no CVA tenderness and no thoracic nor lumbar tenderness Extremity normal to inspection General Extremety ED: Negative for edema General Extremity: Negative for edema Neuro oriented x3, CN's II-XII intact bilaterally, no sensory deficits noted and gait normal Sensorium / Orientation: awake, alert, oriented to person, oriented to place and oriented to time Motor Exam: strength 5/5 throughout and strength abnormal Psych mental status grossly normal Skin no rashes or lesions noted and no wounds MDM MDM MDM Narrative Medical decision making narrative: IV line established on arrival. Patient was given Zofran and Imodium. She had no further vomiting and was able to tolerate p.o. fluids. Her abdominal exam is benign therefore I do not feel imaging is indicated. Suspect patient likely has a viral gastroenteritis. I feel she can be discharged to home. She will be given a prescription for Zofran and she is to use Imodium as needed for the diarrhea. Patient advised to push fluids. She is to return if persistent vomiting, diarrhea, dehydration, worsening abdominal pain, or condition worsen anyway. Lab Data Attestation: I reviewed the patient's lab results. Labs: Laboratory Results - last 24 hr 05/21/22 05/21/22 11:55 11:55 WBC 5.6 RBC 4.97 Hgb 14.2 Hct 44.6 MCV 89.7 MCH 28.6 MCHC 31.8 L RDW Std Deviation 41.1 RDW Coeff of Kristian 12.7 Plt Count 128 L MPV 10.9 Immature Gran % (Auto) 3.000 H Neut % (Auto) 87.8 H Lymph % (Auto) 3.8 L [place] % (Auto) 5.0 Eos % (Auto) 0.2 Baso % (Auto) 0.2 Absolute Neuts (auto) 4.9 Absolute Lymphs (auto) 0.21 L Nucleated RBC % 0 Sodium 145 Potassium 3.8 Chloride 111 H Carbon Dioxide 28.0 Anion Gap 6 BUN 13 Creatinine 1.00 Estim Creat Clear Calc 42.68 Est GFR (MDRD) Af Amer 71 Est GFR (MDRD) Non-Af 58 L BUN/Creatinine Ratio 13.1 Glucose 121 H Calcium 8.5 Discharge Plan Triage Chief Complaint: Nausea/Vomiting/Diarrhea ED Provider: Jessica Harman Dx/Rx/DC Orders Clinical Impression: Viral gastroenteritis Instructions: ED Gastroenteritis, Viral (Adult) Prescriptions: New ondansetron [ondansetron] 4 mg tablet,disintegrating 4 mg PO Q8H PRN PRN (Reason: Nausea) Qty: 10 0RF No Action lisinopril 20 mg Tablet 20 mg PO DAILY omeprazole 20 mg Capsule,Delayed Release(Dr/Ec) 20 mg PO BID levofloxacin 750 mg tablet 750 mg PO DAILY Qty: 4 0RF diphenhydramine HCl [Benadryl] 50 mg Capsule 50 - 100 mg PO QHS PRN (Reason: ALLERGIES) levothyroxine 75 mcg Tablet 75 mcg PO DAILY gabapentin 300 mg Capsule 300 mg PO BID Xarelto 20 mg Tablet 20 mg PO DAILY Rx Instructions: must administer with evening meal metoprolol succinate 50 mg Capsule,Sprinkle,Er 24hr 50 mg PO DAILY ondansetron 4 mg tablet,disintegrating 4 mg PO Q8H PRN (Reason: nausea and vomiting) Qty: 14 0RF [facility] - [facility]-5 Days Disposition Disposition: Home, Self Care
[2022-05-21] MEDS: 0.9% Normal Saline 1,000 ML 1000 ML IV (12:03)
[2022-05-21] MEDS: Ondansetron 4 MG/2 ML Vial IV (12:04)
[2022-05-21] MEDS: Loperamide 2 MG Capsule 4 MG PO (12:04)
[2022-05-21 12:10] LABS: Absolute Lymphocyte Count 0.21 X10^3/uL (0.83-4.51); Absolute Neutrophil Count 4.9 X10^3/uL (2.0-7.7); Basophil# 0.01 X10^3/uL; Basophil% 0.2 % (0-1); Eosinophil# 0.01 X10^3/uL; Eosinophils% 0.2 % (0-5); Hematocrit 44.6 % (37-47); Hemoglobin 14.2 g/dL (12.0-15.0); Lymphocyte # 0.21 X10^3/ul (0.83-4.51); Lymphocyte % 3.8 % (19-41); Mean Corp Hgb Conc 31.8 g/dL (32-36); Mean Corpuscular Hgb 28.6 pg (27.0-32.0); Mean Corpuscular Volume 89.7 fL (81-99); Mean Platelet Vol. 10.9 fl (6.2-12.0); Monocyte# 0.28 X10^3/uL; NRBC Flagged by Analyzer 0 % (0-5); Neutrophil % 87.8 % (47-70); POSITIVE DIFFERENTIAL YES; Platelet Count 128 K/mm3 (150-450); RBC Distribution Width CV 12.7 % (11.6-14.6); RBC Distribution Width SD 41.1 fl (35.1-43.9); Red Blood Count 4.97 M/mm3 (4.2-5.4); White Blood Count 5.6 K/mm3 (4.4-11.0)
[2022-05-21 12:11] LABS: Differential Indicated SCAN CRITERIA MET
[2022-05-21 12:18] LABS: Anion Gap 6 (5-15); BUN 13 mg/dL (7-18); BUN/Creat Ratio 13.1 RATIO (10-20); Calcium,Total 8.5 mg/dL (8.5-10.1); Chloride 111 mmol/L (98-107); EST Glomerular Filtration Rate 58 mL/min (>60); Est Glom Filt Rate - Afr Amer 71 mL/min (>60); Estimated Creatinine Clearance 42.68 ml/min; Glucose 121 mg/dL (74-106); Potassium 3.8 mmol/L (3.5-5.1); Sodium Level 145 mmol/L (136-145)
[2022-05-21 12:54] LABS: Differential Comment SCANNED
== END 2022-05-21 12:54 | disposition home or self-care (01) ==
PROVIDERS: Emergency Provider Emergency Medicine; Visit Provider Emergency Medicine
DX: A08.4 Viral intestinal infection, unspecified (principal); Z86.718 Personal history of other venous thrombosis and embolism
CPT/HCPCS: 80048; 85025; 96361; 96374; 99285; J7030; A4216; J2405

== ENCOUNTER 2022-07-03 12:20 | Emergency (ER) | payer OTHER, SELFPAY ==
[2022-07-03 12:22] VITALS: BP 145/98; PULSE 92; RESP 18; TEMP 37.3; O2SAT 96; BMI 32.3
--- NOTE | 2022-07-03 12:53 | RAD_ITS ---
STUDY: X-RAY CHEST REASON FOR EXAM: Female, 72 years old. Cough and generalized weakness. TECHNIQUE: Single AP portable view of the chest. COMPARISON: Comparison is made with prior study March 18, 2022. FINDINGS: Small left pleural effusion with left basilar infiltrate. There is no demonstrated pleural abnormality. Calcification of the mitral valve annulus. Normal mediastinum and tova. Normal visualized pulmonary arteries. Normal visualized aortic arch and descending thoracic aorta. There are diffuse degenerative changes of the visualized thoracic spine. Prior fusion of the lower cervical spine. There is no demonstrated abnormality of the visualized soft tissue structures of the upper abdomen. RAD/Chest 1 View (Portable) IMPRESSION: Small left pleural effusion with left basilar infiltrate. Electronically Signed: Chris Odonnell MD at 13:04 EDT ,
[2022-07-03 13:33] LABS: International Normalized Ratio 1.2; Prothrombin Time (Protime)PT. 14.4 SECONDS (11.7-14.9)
[2022-07-03 13:40] LABS: Anion Gap 6 (5-15); BUN 7 mg/dL (7-18); BUN/Creat Ratio 7.6 RATIO (10-20); Calcium,Total 8.3 mg/dL (8.5-10.1); Chloride 108 mmol/L (98-107); Creatinine, Serum 0.92 mg/dL (0.55-1.02); EST Glomerular Filtration Rate 64 mL/min (>60); Est Glom Filt Rate - Afr Amer 78 mL/min (>60); Estimated Creatinine Clearance 44.36 ml/min; Glucose 79 mg/dL (74-106); Potassium 3.7 mmol/L (3.5-5.1); Sodium Level 136 mmol/L (136-145)
[2022-07-03] MEDS: HYDROmorphone 1 MG/ML Syringe 0.5 MG IV (13:54)
[2022-07-03] MEDS: 0.9% Normal Saline 1,000 ML 150 ML IV (13:55)
[2022-07-03] MEDS: Ondansetron 4 MG/2 ML Vial IV (13:55)
[2022-07-03 14:06] LABS: Absolute Lymphocyte Count 0.68 X10^3/uL (0.83-4.51); Absolute Neutrophil Count 2.7 X10^3/uL (2.0-7.7); Basophil# 0.01 X10^3/uL; Basophil% 0.3 % (0-1); Eosinophils% 2.5 % (0-5); Hematocrit 38.8 % (37-47); Hemoglobin 12.4 g/dL (12.0-15.0); Lymphocyte # 0.68 X10^3/ul (0.83-4.51); Lymphocyte % 17.3 % (19-41); Mean Corpuscular Hgb 28.4 pg (27.0-32.0); Mean Corpuscular Volume 88.8 fL (81-99); Mean Platelet Vol. 10.1 fl (6.2-12.0); Monocyte# 0.41 X10^3/uL; Monocyte% 10.4 % (0-10); NRBC Flagged by Analyzer 0 % (0-5); Neutrophil # 2.73 X10^3/uL (2.7-7.7); Neutrophil % 69.2 % (47-70); Platelet Count 135 K/mm3 (150-450); RBC Distribution Width CV 12.8 % (11.6-14.6); RBC Distribution Width SD 41.8 fl (35.1-43.9); Red Blood Count 4.37 M/mm3 (4.2-5.4); White Blood Count 3.9 K/mm3 (4.4-11.0)
[2022-07-03 14:21] VITALS: RESP 20
--- NOTE | 2022-07-03 15:32 | CT_ITS ---
STUDY: CT CERVICAL SPINE WITHOUT CONTRAST REASON FOR EXAM: Female, 72 years old. Post op pain, on Xarelto RADIATION DOSAGE (If Supplied By Facility): CTDIvol = ( 19.06 ) mGy, DLP = ( 414.91 ) mGycm TECHNIQUE: High resolution transaxial imaging was performed without contrast material. Sagittal and coronal images were reconstructed. Individualized dose optimization techniques were used for this CT. COMPARISON: None FINDINGS: Normal craniovertebral junction. There are degenerative changes of the anterior atlantoaxial articulation. Normal odontoid process. Normal cervical lordosis. Normal vertebral bodies and posterior osseous elements. C2-3: Normal endplates. Normal disc height and morphology. Normal central canal and intervertebral neuroforamina. C3-4: Small central posterior spondylosis causing minimal deformity of the central portion of the thecal sac. C4-5: The patient is status post anterior fusion at the C4-C5 level. Facet joint osteoarthritis and hypertrophy worse on the left side. C5-6: The patient is status post anterior fusion with screw and plate fixation device. Posterior spondylosis. Left paracentral foraminal stenosis. C6-7: The patient is status post anterior fusion with screw and plate fixation device. No significant stenosis seen. C7-T1: Normal endplates. Normal disc height and morphology. Normal central canal and intervertebral neuroforamina. Left pleural effusion. CT/Spine Cervical without Contras IMPRESSION: Status post anterior fusion at the C4-C5, C5-C6 and C6-C7 levels. Left neuroforaminal stenosis at the C5-C6 level. Left pleural effusion. Electronically Signed: Chris Odonnell MD at 15:49 EDT ,
[2022-07-03 16:00] VITALS: BP 162/93; PULSE 74; RESP 18; O2SAT 94
--- NOTE | 2022-07-03 16:10 | EKG12_ITS ---
Test Reason : WEAKNESSS Blood Pressure : / mmHG Vent. Rate : 092 BPM Atrial Rate : 092 BPM P-R Int : 126 ms QRS Dur : 072 ms QT Int : 368 ms P-R-T Axes : 043 021 046 degrees QTc Int : 455 ms Normal sinus rhythm Normal ECG Confirmed by EH VARGAS MD ([id number]), editor map JIAN ORTEZ ([id number]) on 07/05/2022 9:51:33 AM Referred By: KAY Confirmed By:EH VARGAS MD
--- NOTE | 2022-07-03 16:20 | ED.RN ---
PT LEANED BACK AFTER DILAUDID DOSE AND PTS O2 SATS DROPPED TO 83% ON ROOM AIR. 2L NC O2 APPLIED AND PTS O2 SATS IMPROVE
--- NOTE | 2022-07-03 16:33 | EX.ED.DYSGE1 ---
HPI History of Present Illness Chief Complaint: Weakness Informant: patient Onset/Context/Timing Onset: Today Narrative Narrative: Patient present secondary to generalized weakness and increased chest, back, neck pain. Patient had a spinal fusion in her cervical spine done a week ago at the [facility]. She is only in the hospital overnight. She is on Xarelto secondary to A-fib. This was held 6 days prior to her surgery and initiated the day following surgery. She reports increased pain in her neck and upper shoulders over the past couple days. This morning she coughed up some sputum that was blood-tinged. [facility] Medical History Atrial fibrillation DVT (deep venous thrombosis) Home Medications diphenhydramine HCl 50 mg capsule 50 - 100 mg PO QHS PRN ALLERGIES 03/16/22 [History Last Taken Unknown] gabapentin 300 mg capsule 300 mg PO BID 03/16/22 [History Last Taken Unknown] levofloxacin 750 mg tablet 750 mg PO DAILY #4 tabs 03/16/22 [Rx Last Taken Unknown] levothyroxine 75 mcg tablet 75 mcg PO DAILY 03/16/22 [History Last Taken Unknown] lisinopril 20 mg tablet 20 mg PO DAILY 03/16/22 [History Last Taken Unknown] metoprolol succinate 50 mg capsule sprinkle, ext. release 24 hr 50 mg PO DAILY 03/16/22 [History Last Taken Unknown] omeprazole 20 mg capsule,delayed release 20 mg PO BID 03/16/22 [History Last Taken Unknown] ondansetron 4 mg disintegrating tablet 4 mg PO Q8H PRN nausea and vomiting #14 tabs 03/16/22 [Rx Last Taken Unknown] rivaroxaban 20 mg tablet (Xarelto) 20 mg PO DAILY 03/16/22 [History Last Taken Unknown] ondansetron 4 mg disintegrating tablet 4 mg PO Q8H PRN PRN Nausea #10 tabs 05/21/22 [Rx Last Taken Unknown] benzonatate 100 mg capsule 100 mg PO TID PRN cough #20 caps 07/03/22 [Rx Last Taken Unknown] levofloxacin 750 mg tablet 750 mg PO DAILY #4 tabs 07/03/22 [Rx Last Taken Unknown] Allergy/AdvReac Type Severity Reaction Status Date / Time amoxicillin [From Amoxil] Allergy Hives Verified 07/03/22 12:21 doxycycline Allergy Hives Verified 07/03/22 12:21 tramadol Allergy Hives Verified 07/03/22 12:21 azithromycin AdvReac Nausea Verified 07/03/22 12:21 codeine AdvReac Itching Verified 07/03/22 12:21 [id number] Reductase AdvReac Other Verified 07/03/22 12:21 Inhibitor Surgical History H/O section H/O foot surgery H/O spinal fusion History of bilateral knee replacement Social History Smoking Status: Never smoker ROS ROS ED Constitutional Constitutional ED: Denies chills or fever(s) Eyes Eyes: Denies change in vision or discharge from eye(s) ENT ENT ED: Denies discharge from eye(s), rhinorrhea or sore throat Cardiovascular Cardiovascular: Denies chest pain or palpitations Respiratory/Chest Respiratory/Chest: Reports cough; Denies dyspnea Gastrointestinal Gastrointestinal: Denies abdominal pain, nausea or vomiting Genitourinary Genitourinary ED: Denies dysuria Musculoskeletal Musculoskeletal: Denies back pain or extremity pain Integumentary Denies Abrasions or rash Neurologic Neurologic: Denies headache(s) or weakness Psychiatric Psychiatric: Denies anxiety or depression Endocrine Endocrinology: Denies polydipsia or polyuria Allergic/Immunologic Allergic/Immunologic ED: Denies lip swelling or urticaria EXAM Physical Exam Const Vital Signs: 07/03/22 12:22 07/03/22 12:27 07/03/22 14:21 Temperature 99.1 F Temperature Source Temporal Pulse Rate 92 Respiratory Rate 18 20 H Respiratory Effort Normal Non-Labored Respiratory Pattern Normal Blood Pressure 145/98 H Blood Pressure Mean 113 Pulse Ox 96 Oxygen Delivery Method Room Air Positive well nourished and well developed General Appearance ED: well developed HEENT Reports normocephalic and head/scalp atraumatic Eyes PERRL and EOMs intact bilaterally Neck supple Neck Narrative: Anterior neck incision is healing well with no sign of infection. No palpable fluctuance or mass. Chest Wall inspection of chest normal and palpation of chest normal Resp normal respiratory effort Resp Narrative: Diminished bilateral bases. No wheezing or rhonchi noted. Cardio regular rate and regular rhythm GI normal to inspection, nondistended, normoactive bowel sounds Palpation: soft Extremity normal to inspection Neuro oriented x3 and no sensory deficits noted Sensorium / Orientation: alert Motor Exam: strength 5/5 throughout Skin no rashes or lesions noted MDM MDM MDM Narrative Medical decision making narrative: Labwork obtained to evaluate for leukocytosis, anemia, and electrolyte derangement. CT scan of the C-spine obtained. Chest x-ray obtained. Lab Data Attestation: I reviewed the patient's lab results. Labs: Laboratory Results - last 24 hr 07/03/22 07/03/22 07/03/22 13:16 13:16 13:16 WBC Cancelled Corrected WBC Cancelled RBC Cancelled Hgb Cancelled Hct Cancelled MCV Cancelled MCH Cancelled MCHC Cancelled RDW Std Deviation Cancelled RDW Coeff of Kristian Cancelled Plt Count Cancelled MPV Cancelled Immature Gran % (Auto) Cancelled Neut % (Auto) Cancelled Lymph % (Auto) Cancelled [place] % (Auto) Cancelled Eos % (Auto) Cancelled Baso % (Auto) Cancelled Absolute Neuts (auto) Cancelled Absolute Lymphs (auto) Cancelled Total Counted Cancelled Neutrophils % (Manual) Cancelled Band Neutrophils % Cancelled Lymphocytes % (Manual) Cancelled Monocytes % (Manual) Cancelled Eosinophils % (Manual) Cancelled Basophils % (Manual) Cancelled Metamyelocytes % Cancelled Myelocytes % Cancelled Promyelocytes % Cancelled Blast Cells % Cancelled Plasma Cell % (Manual) Cancelled Other Cells % Cancelled Nucleated RBC % Cancelled Nucleated RBCs/100 WBC Cancelled Differential Comment Cancelled Diff Path Review Cancelled Hypersegmented Neuts Cancelled Atypical Lymphocytes Cancelled Reactive Lymphocytes Cancelled Smudge Cells Cancelled Toxic Granulation Cancelled Toxic Vacuolation Cancelled Dohle Bodies Cancelled Nano Rods Cancelled Platelet Estimate Cancelled Plt Morphology Comment Cancelled RBC Morphology Cancelled Polychromasia Cancelled Hypochromasia Cancelled Poikilocytosis Cancelled Basophilic Stippling Cancelled Anisocytosis Cancelled Microcytosis Cancelled Macrocytosis Cancelled Spherocytes Cancelled Sickle Cells Cancelled Target Cells Cancelled Tear Drop Cells Cancelled Ovalocytes Cancelled Stomatocytes Cancelled [place] Bodies Cancelled [place] Cells Cancelled Bite Cells Cancelled Crenated Cell Cancelled Acanthocytes (Spur) Cancelled Rouleaux Cancelled Schistocytes Cancelled PT 14.4 INR 1.2 APTT 27.0 Sodium 136 Potassium 3.7 Chloride 108 H Carbon Dioxide 22.0 Anion Gap 6 BUN 7 Creatinine 0.92 Estim Creat Clear Calc 44.36 Est GFR (MDRD) Af Amer 78 Est GFR (MDRD) Non-Af 64 BUN/Creatinine Ratio 7.6 L Glucose 79 Calcium 8.3 L 07/03/22 13:50 WBC 3.9 L Corrected WBC RBC 4.37 Hgb 12.4 Hct 38.8 MCV 88.8 MCH 28.4 MCHC 32.0 RDW Std Deviation 41.8 RDW Coeff of Kristian 12.8 Plt Count 135 L MPV 10.1 Immature Gran % (Auto) 0.300 Neut % (Auto) 69.2 Lymph % (Auto) 17.3 L [place] % (Auto) 10.4 H Eos % (Auto) 2.5 Baso % (Auto) 0.3 Absolute Neuts (auto) 2.7 Absolute Lymphs (auto) 0.68 L Total Counted Neutrophils % (Manual) Band Neutrophils % Lymphocytes % (Manual) Monocytes % (Manual) Eosinophils % (Manual) Basophils % (Manual) Metamyelocytes % Myelocytes % Promyelocytes % Blast Cells % Plasma Cell % (Manual) Other Cells % Nucleated RBC % 0 Nucleated RBCs/100 WBC Differential Comment Diff Path Review Hypersegmented Neuts Atypical Lymphocytes Reactive Lymphocytes Smudge Cells Toxic Granulation Toxic Vacuolation Dohle Bodies Nano Rods Platelet Estimate Plt Morphology Comment RBC Morphology Polychromasia Hypochromasia Poikilocytosis Basophilic Stippling Anisocytosis Microcytosis Macrocytosis Spherocytes Sickle Cells Target Cells Tear Drop Cells Ovalocytes Stomatocytes [place] Bodies [place] Cells Bite Cells Crenated Cell Acanthocytes (Spur) Rouleaux Schistocytes PT INR APTT Sodium Potassium Chloride Carbon Dioxide Anion Gap BUN Creatinine Estim Creat Clear Calc Est GFR (MDRD) Af Amer Est GFR (MDRD) Non-Af BUN/Creatinine Ratio Glucose Calcium Radiography Chest X-Ray - ED: 1 View, Read by ED Physician and Left Effusion Diagnostic Testing: Clinical Impression(s) from Imaging Studies Chest X-Ray 07/03/22 12:53 IMPRESSION: Small left pleural effusion with left basilar infiltrate. Electronically Signed: Chris Odonnell MD at 13:04 EDT , Cervical Spine CT 07/03/22 15:32 IMPRESSION: Status post anterior fusion at the C4-C5, C5-C6 and C6-C7 levels. Left neuroforaminal stenosis at the C5-C6 level. Left pleural effusion. Electronically Signed: Chris Odonnell MD at 15:49 EDT , EKG Initial EKG: Attestation: I personally reviewed and interpreted this EKG as follows: Interpretation: Sinus Rhythm (Sinus at 92 with no acute ischemia. QTc is 455.) Treatment and Re-Evaluation :: CBC reveals mild leukopenia with a white count of 3.9. No left shift. Chemistry studies unremarkable. Coags normal. Chest x-ray per my interpretation feels left-sided pleural effusion. Radiology interpretation is reviewed. They agree patient has a left pleural effusion but also feel that there is a potential early infiltrate. Patient does report increased cough recently. She has not noted fever. CT scan of the C-spine reveals hardware to be intact. No obvious fluid collections that would represent an abscess or hematoma. On repeat evaluation patient is on oxygen. Nursing staff states that her oxygen level did drop into the 80s after she was given Dilaudid. We were able to take her off of oxygen and O2 sats are in the mid 90s at this time. Patient will be given Levaquin as well as Tessalon Perles to help control cough. [facility] Return instructions given. Discharge Plan Triage Chief Complaint: Weakness ED Provider: Gladis Bird Dx/Rx/DC Orders Clinical Impression: Post-op pain, Pneumonia Instructions: ED Pneumonia (Adult), ED Post Op Wound Check, Pain Prescriptions: New benzonatate 100 mg capsule 100 mg PO TID PRN (Reason: cough) Qty: 20 0RF levofloxacin 750 mg tablet 750 mg PO DAILY Qty: 4 0RF No Action lisinopril 20 mg Tablet 20 mg PO DAILY omeprazole 20 mg Capsule,Delayed Release(Dr/Ec) 20 mg PO BID levofloxacin 750 mg tablet 750 mg PO DAILY Qty: 4 0RF diphenhydramine HCl [Benadryl] 50 mg Capsule 50 - 100 mg PO QHS PRN (Reason: ALLERGIES) levothyroxine 75 mcg Tablet 75 mcg PO DAILY gabapentin 300 mg Capsule 300 mg PO BID Xarelto 20 mg Tablet 20 mg PO DAILY Rx Instructions: must administer with evening meal metoprolol succinate 50 mg Capsule,Sprinkle,Er 24hr 50 mg PO DAILY ondansetron 4 mg tablet,disintegrating 4 mg PO Q8H PRN (Reason: nausea and vomiting) Qty: 14 0RF ondansetron [ondansetron] 4 mg tablet,disintegrating 4 mg PO Q8H PRN PRN (Reason: Nausea) Qty: 10 0RF [facility] [[facility] - [facility] appointment Disposition Disposition: Home, Self Care
--- NOTE | 2022-07-03 16:59 | ED.RN ---
PT AMBULATED WITH PULSE OX AND O2 SATS REMAIN ABOUT 93% ON ROOM AIR.
== END 2022-07-03 17:18 | disposition home or self-care (01) ==
PROVIDERS: Emergency Provider Emergency Medicine; Visit Provider Emergency Medicine
DX: J18.9 Pneumonia, unspecified organism (principal); I48.91 Unspecified atrial fibrillation; G89.18 Other acute postprocedural pain; Z98.1 Arthrodesis status; Z79.01 Long term (current) use of anticoagulants
CPT/HCPCS: 71045; 72125; 80048; 85025; 85610; 85730; 93005; 96374; 96375; 99285; J7030; A4216; J2405

== ENCOUNTER 2022-07-26 11:11 | Emergency (ER) | payer OTHER, SELFPAY ==
[2022-07-26 11:12] VITALS: BP 158/85; PULSE 99; RESP 16; TEMP 36.6; O2SAT 99; BMI 31.7
[2022-07-26 11:24] VITALS: BP 158/85; PULSE 99; RESP 16; TEMP 36.6; O2SAT 99
--- NOTE | 2022-07-26 11:27 | EKG12_ITS ---
Test Reason : COUGH Blood Pressure : / mmHG Vent. Rate : 089 BPM Atrial Rate : 089 BPM P-R Int : 128 ms QRS Dur : 074 ms QT Int : 342 ms P-R-T Axes : 049 048 038 degrees QTc Int : 416 ms Sinus rhythm with marked sinus arrhythmia Otherwise normal ECG Confirmed by ALICIA GUIDRY, EH ([id number]), editor newspaper JIAN ORTEZ ([id number]) on 07/31/2022 10:52:41 AM Referred By: EMELIA Confirmed By:EH VARGAS MD
--- NOTE | 2022-07-26 11:31 | EDS_ITS ---
HPI History of Present Illness Chief Complaint: Shortness of Breath Detail of Chief Complaint: Cough Informant: patient Onset/Context/Timing Onset: Days (4 days) Context: Gradual Onset Narrative Narrative: Patient presents with 4-day history of cough. She had a subjective fever last evening but did not measure her temperature. She is coughing up mostly white sputum but states first in the morning he does have some blood streaks in it. Patient is currently on Xarelto given a history of A-fib and DVT. Patient was seen in late June with a pleural effusion and possible pneumonia. She was treated with Levaquin and Tessalon. She states she did feel better after this treatment and just became ill again 4 days ago. [facility] Medical History Atrial fibrillation DVT (deep venous thrombosis) GERD (gastroesophageal reflux disease) HTN (hypertension) Hypothyroid Home Medications diphenhydramine HCl 50 mg capsule 50 - 100 mg PO QHS PRN ALLERGIES 03/16/22 [History Last Taken Unknown] gabapentin 300 mg capsule 300 mg PO BID 03/16/22 [History Last Taken Unknown] levofloxacin 750 mg tablet 750 mg PO DAILY #4 tabs 03/16/22 [Rx Last Taken Unknown] levothyroxine 75 mcg tablet 75 mcg PO DAILY 03/16/22 [History Last Taken Unknown] lisinopril 20 mg tablet 20 mg PO DAILY 03/16/22 [History Last Taken Unknown] metoprolol succinate 50 mg capsule sprinkle, ext. release 24 hr 50 mg PO DAILY 03/16/22 [History Last Taken Unknown] omeprazole 20 mg capsule,delayed release 20 mg PO BID 03/16/22 [History Last Taken Unknown] ondansetron 4 mg disintegrating tablet 4 mg PO Q8H PRN nausea and vomiting #14 tabs 03/16/22 [Rx Last Taken Unknown] rivaroxaban 20 mg tablet (Xarelto) 20 mg PO DAILY 03/16/22 [History Last Taken Unknown] ondansetron 4 mg disintegrating tablet 4 mg PO Q8H PRN PRN Nausea #10 tabs 05/21/22 [Rx Last Taken Unknown] benzonatate 100 mg capsule 100 mg PO TID PRN cough #20 caps 07/03/22 [Rx Last Taken Unknown] levofloxacin 750 mg tablet 750 mg PO DAILY #4 tabs 07/03/22 [Rx Last Taken Unknown] benzonatate 200 mg capsule 200 mg PO BID PRN cough #14 caps 07/26/22 [Rx Last Taken Unknown] levofloxacin 750 mg tablet 750 mg PO DAILY #4 tabs 07/26/22 [Rx Last Taken Unk nown] Allergy/AdvReac Type Severity Reaction Status Date / Time amoxicillin [From Amoxil] Allergy Hives Verified 07/26/22 11:13 doxycycline Allergy Hives Verified 07/26/22 11:13 tramadol Allergy Hives Verified 07/26/22 11:13 azithromycin AdvReac Nausea Verified 07/26/22 11:13 codeine AdvReac Itching Verified 07/26/22 11:13 [id number] Reductase AdvReac Other Verified 07/26/22 11:13 Inhibitor Surgical History H/O section H/O foot surgery H/O spinal fusion History of bilateral knee replacement Social History Smoking Status: Never smoker ROS ROS ED Constitutional Constitutional ED: Reports fever(s) and subjective; Denies chills Eyes Eyes: Denies change in vision or discharge from eye(s) ENT ENT ED: Denies discharge from eye(s), rhinorrhea or sore throat Cardiovascular Cardiovascular: Denies chest pain or palpitations Respiratory/Chest Respiratory/Chest: Reports cough, dyspnea and sputum Gastrointestinal Gastrointestinal: Denies abdominal pain, diarrhea, nausea or vomiting Genitourinary Genitourinary ED: Denies dysuria Musculoskeletal Musculoskeletal: Reports extremity pain; Denies back pain Integumentary Denies Abrasions or rash Neurologic Neurologic: Denies headache(s) or weakness Allergic/Immunologic Allergic/Immunologic ED: Denies lip swelling or urticaria EXAM Physical Exam Const Vital Signs: 07/26/22 11:12 07/26/22 11:18 07/26/22 11:24 Temperature 98 F 98 F Temperature Source Temporal Temporal Pulse Rate 99 99 Respiratory Rate 16 16 Respiratory Effort Short of Breath Labored Respiratory Depth Normal Respiratory Pattern Normal Blood Pressure 158/85 H 158/85 H Blood Pressure Mean 109 109 Pulse Ox 99 99 Oxygen Delivery Method Room Air Room Air 07/26/22 12:14 Temperature 97.6 F L Temperature Source Temporal Pulse Rate 87 Respiratory Rate 35 H Respiratory Effort Respiratory Depth Respiratory Pattern Blood Pressure 151/85 H Blood Pressure Mean 107 Pulse Ox 96 Oxygen Delivery Method Room Air Positive well nourished and well developed General Appearance ED: well developed HEENT Reports normocephalic and head/scalp atraumatic Eyes PERRL and EOMs intact bilaterally Neck supple Chest Wall inspection of chest normal and palpation of chest normal Resp normal respiratory effort and clear to auscultation bilaterally Cardio regular rate and regular rhythm GI normal to inspection, nondistended, normoactive bowel sounds Palpation: soft Extremity normal to inspection Neuro oriented x3 and no sensory deficits noted Sensorium / Orientation: alert Motor Exam: strength 5/5 throughout Psych mental status grossly normal Skin no rashes or lesions noted MDM MDM MDM Narrative Medical decision making narrative: Patient placed on bus driver/monitor. Labwork obtained to evaluate for leukocytosis, anemia, and electrolyte derangement. EKG obtained to evaluate for cardiac arrhythmia/ischemia. Chest x-ray obtained to evaluate for acute lung pathology, cardiac size, or mediastinal abnormality. Swab for COVID and influenza obtained. Patient given Tessalon Perles to help control cough. Lab Data Attestation: I reviewed the patient's lab results. Labs: Laboratory Results - last 24 hr 07/26/22 07/26/22 11:53 11:53 WBC 3.1 L RBC 4.96 Hgb 14.0 Hct 44.8 MCV 90.3 MCH 28.2 MCHC 31.3 L RDW Std Deviation 41.6 RDW Coeff of Kristian 12.7 Plt Count 106 L MPV 10.7 Immature Gran % (Auto) 0.300 Neut % (Auto) 69.5 Lymph % (Auto) 16.9 L [place] % (Auto) 11.4 H Eos % (Auto) 1.6 Baso % (Auto) 0.3 Absolute Neuts (auto) 2.1 Absolute Lymphs (auto) 0.52 L Nucleated RBC % 0 Sodium 139 Potassium 3.9 Chloride 107 Carbon Dioxide 29.0 Anion Gap 3 L BUN 8 Creatinine 1.03 H Estim Creat Clear Calc 41.44 Est GFR (MDRD) Af Amer 68 Est GFR (MDRD) Non-Af 56 L BUN/Creatinine Ratio 7.8 L Glucose 94 Calcium 8.6 Radiography Chest X-Ray - ED: 1 View, Read by ED Physician and Chronic Changes Diagnostic Testing: Clinical Impression(s) from Imaging Studies Chest X-Ray 07/26/22 11:55 IMPRESSION: Residual blunting the left costophrenic angle with some mild increased markings at the left lung base although there has been a marked improvement as compared to prior study. Electronically Signed: Chris Odonnell MD at 12:25 EDT , EKG Initial EKG: Attestation: I personally reviewed and interpreted this EKG as follows: Interpretation: Sinus Rhythm (Sinus 89 with no acute ischemia. QTc is 416.) Treatment and Re-Evaluation :: CBC shows continued leukopenia with a white count of 3.1. Hemoglobin is 14. No left shift noted. Chemistry studies unremarkable. Swab for COVID and influenza is negative. Portable chest x-ray per my interpretation reveals some chronic changes at the left base, however significantly improved when compared to prior study. Radiology interpretation is reviewed and agrees. EKG reveals no ischemia. On repeat evaluation patient resting comfortably. Patient had similar symptoms recently and was treated with Levaquin and Tessalon Perles she did improve on these. I will give her another course of antibiotics at this time. Given her antibiotic allergies I do feel Levaquin will be the best choice. Return instructions given. Discharge Plan Triage Chief Complaint: Shortness of Breath ED Provider: Gladis Bird Dx/Rx/DC Orders Clinical Impression: Bronchitis Instructions: ED Upper Resp Infec Abx Tx Prescriptions: New levofloxacin 750 mg tablet 750 mg PO DAILY Qty: 4 0RF benzonatate 200 mg capsule 200 mg PO BID PRN (Reason: cough) Qty: 14 0RF No Action lisinopril 20 mg Tablet 20 mg PO DAILY omeprazole 20 mg Capsule,Delayed Release(Dr/Ec) 20 mg PO BID levofloxacin 750 mg tablet 750 mg PO DAILY Qty: 4 0RF diphenhydramine HCl [Benadryl] 50 mg Capsule 50 - 100 mg PO QHS PRN (Reason: ALLERGIES) levothyroxine 75 mcg Tablet 75 mcg PO DAILY gabapentin 300 mg Capsule 300 mg PO BID Xarelto 20 mg Tablet 20 mg PO DAILY Rx Instructions: must administer with evening meal metoprolol succinate 50 mg Capsule,Sprinkle,Er 24hr 50 mg PO DAILY ondansetron 4 mg tablet,disintegrating 4 mg PO Q8H PRN (Reason: nausea and vomiting) Qty: 14 0RF ondansetron [ondansetron] 4 mg tablet,disintegrating 4 mg PO Q8H PRN PRN (Reason: Nausea) Qty: 10 0RF benzonatate 100 mg capsule 100 mg PO TID PRN (Reason: cough) Qty: 20 0RF levofloxacin 750 mg tablet 750 mg PO DAILY Qty: 4 0RF [facility] Provider[facility] [[facility] Provider] - 1-2 Weeks Disposition Disposition: Home, Self Care
[2022-07-26] MEDS: Benzonatate 100 MG Capsule 200 MG PO (11:46)
--- NOTE | 2022-07-26 11:55 | RAD_ITS ---
STUDY: X-RAY CHEST REASON FOR EXAM: Female, 72 years old. 4 day history of cough. Fever. TECHNIQUE: Single AP portable view of the chest. COMPARISON: Comparison is made with prior study of July 03, 2022. FINDINGS: EKG electrodes are seen. Blunting of the left costophrenic angle with mild increased markings at the left lung base. There is been a marked improvement as compared to prior study. Normal size heart. Normal mediastinum and tova. Normal visualized pulmonary arteries. There is atherosclerotic tortuosity of the aortic arch and descending thoracic aorta. There are diffuse degenerative changes of the visualized thoracic spine. Prior fusion in the lower cervical spine. There is no demonstrated abnormality of the visualized soft tissue structures of the upper abdomen. RAD/Chest 1 View (Portable) IMPRESSION: Residual blunting the left costophrenic angle with some mild increased markings at the left lung base although there has been a marked improvement as compared to prior study. Electronically Signed: Chris Odonnell MD at 12:25 EDT ,
[2022-07-26 12:05] LABS: Absolute Lymphocyte Count 0.52 X10^3/uL (0.83-4.51); Absolute Neutrophil Count 2.1 X10^3/uL (2.0-7.7); Basophil# 0.01 X10^3/uL; Basophil% 0.3 % (0-1); Eosinophil# 0.05 X10^3/uL; Eosinophils% 1.6 % (0-5); Hematocrit 44.8 % (37-47); Lymphocyte # 0.52 X10^3/ul (0.83-4.51); Lymphocyte % 16.9 % (19-41); Mean Corp Hgb Conc 31.3 g/dL (32-36); Mean Corpuscular Hgb 28.2 pg (27.0-32.0); Mean Corpuscular Volume 90.3 fL (81-99); Mean Platelet Vol. 10.7 fl (6.2-12.0); Monocyte# 0.35 X10^3/uL; Monocyte% 11.4 % (0-10); NRBC Flagged by Analyzer 0 % (0-5); Neutrophil # 2.14 X10^3/uL (2.7-7.7); Neutrophil % 69.5 % (47-70); POSITIVE DIFFERENTIAL YES; Platelet Count 106 K/mm3 (150-450); RBC Distribution Width CV 12.7 % (11.6-14.6); RBC Distribution Width SD 41.6 fl (35.1-43.9); Red Blood Count 4.96 M/mm3 (4.2-5.4); White Blood Count 3.1 K/mm3 (4.4-11.0)
[2022-07-26 12:14] VITALS: BP 151/85; PULSE 87; RESP 35; TEMP 36.4; O2SAT 96
[2022-07-26 12:27] LABS: Anion Gap 3 (5-15); BUN 8 mg/dL (7-18); BUN/Creat Ratio 7.8 RATIO (10-20); Calcium,Total 8.6 mg/dL (8.5-10.1); Chloride 107 mmol/L (98-107); Creatinine, Serum 1.03 mg/dL (0.55-1.02); EST Glomerular Filtration Rate 56 mL/min (>60); Est Glom Filt Rate - Afr Amer 68 mL/min (>60); Estimated Creatinine Clearance 41.44 ml/min; Glucose 94 mg/dL (74-106); Potassium 3.9 mmol/L (3.5-5.1); Sodium Level 139 mmol/L (136-145)
[2022-07-26 13:13] LABS: Differential Indicated SCAN CRITERIA MET
[2022-07-26] MEDS: levoFLOXacin 750 MG Tablet PO (13:39)
[2022-07-26 13:41] VITALS: RESP 19; O2SAT 99
[2022-07-27 10:38] LABS: Pathologist Review Reviewed
== END 2022-07-26 13:42 | disposition home or self-care (01) ==
PROVIDERS: Emergency Provider Emergency Medicine; Visit Provider Emergency Medicine
DX: J90 Pleural effusion, not elsewhere classified (principal); Z86.718 Personal history of other venous thrombosis and embolism
CPT/HCPCS: 71045; 80048; 85025; 87428; 93005; 99284; A4216

== ENCOUNTER 2022-08-08 21:17 | Emergency (ER) | payer OTHER, SELFPAY ==
[2022-08-08 21:18] VITALS: BP 157/84; PULSE 71; RESP 16; TEMP 36.3; O2SAT 99; BMI 32.2
--- NOTE | 2022-08-08 21:33 | ED.VIS.LOWEX ---
HPI History of Present Illness Chief Complaint: Lower Extremity Injury Narrative Narrative: 72-year-old female presents with injury to her right toes. She states that she has remote history of hammertoes and had surgery by building pressure washer in [place] years ago. The other day, 5 days ago, her dog ran into the bottom of her foot, bending her toes backwards. She now has pain at the base of all her toes, but mainly 2 through 5. She denies any chest pain or shortness of breath. Her foot is swollen. She has been taking Tylenol without relief. Of note, she did have prior popliteal DVT for which she is on Xarelto. She states that she has had a DVT before this pain in her foot does not feel similar to that. [facility] Medical History Atrial fibrillation DVT (deep venous thrombosis) GERD (gastroesophageal reflux disease) HTN (hypertension) Hypothyroid Home Medications diphenhydramine HCl 50 mg capsule 50 - 100 mg PO QHS PRN ALLERGIES 03/16/22 [History Last Taken Unknown] gabapentin 300 mg capsule 300 mg PO BID 03/16/22 [History Last Taken Unknown] levofloxacin 750 mg tablet 750 mg PO DAILY #4 tabs 03/16/22 [Rx Last Taken Unknown] levothyroxine 75 mcg tablet 75 mcg PO DAILY 03/16/22 [History Last Taken Unknown] lisinopril 20 mg tablet 20 mg PO DAILY 03/16/22 [History Last Taken Unknown] metoprolol succinate 50 mg capsule sprinkle, ext. release 24 hr 50 mg PO DAILY 03/16/22 [History Last Taken Unknown] omeprazole 20 mg capsule,delayed release 20 mg PO BID 03/16/22 [History Last Taken Unknown] ondansetron 4 mg disintegrating tablet 4 mg PO Q8H PRN nausea and vomiting #14 tabs 03/16/22 [Rx Last Taken Unknown] rivaroxaban 20 mg tablet (Xarelto) 20 mg PO DAILY 03/16/22 [History Last Taken Unknown] ondansetron 4 mg disintegrating tablet 4 mg PO Q8H PRN PRN Nausea #10 tabs 05/21/22 [Rx Last Taken Unknown] benzonatate 100 mg capsule 100 mg PO TID PRN cough #20 caps 07/03/22 [Rx Last Taken Unknown] levofloxacin 750 mg tablet 750 mg PO DAILY #4 tabs 07/03/22 [Rx Last Taken Unknown] benzonatate 200 mg capsule 200 mg PO BID PRN cough #14 caps 07/26/22 [Rx Last Taken Unknown] levofloxacin 750 mg tablet 750 mg PO DAILY #4 tabs 07/26/22 [Rx Last Taken Unknown] Allergy/AdvReac Type Severity Reaction Status Date / Time amoxicillin [From Amoxil] Allergy Hives Verified 08/08/22 21:19 doxycycline Allergy Hives Verified 08/08/22 21:19 tramadol Allergy Hives Verified 08/08/22 21:19 azithromycin AdvReac Nausea Verified 08/08/22 21:19 codeine AdvReac Itching Verified 08/08/22 21:19 [id number] Reductase AdvReac Other Verified 08/08/22 21:19 Inhibitor Surgical History H/O section H/O foot surgery H/O spinal fusion History of bilateral knee replacement Social History Smoking Status: Never smoker ROS ROS ED ROS Narrative Constitutional: No fever, no chills. HEENT: No sore throat. No neck pain. No loss of vision. No rhinorrhea. Cardiovascular: No chest pain. No palpitations. No pedal edema. Respiratory: No cough, no shortness of breath. Abdominal: No abdominal pain. No nausea. No vomiting. Genitourinary: No dysuria. No hematuria. Musculoskeletal: No myalgias. Right foot pain, at the base of toes 2 through 5. Neurologic: No headaches. No dizziness. No lightheadedness. Skin: No rash. No change in color. Psychiatric: No depression. No anxiety. EXAM Physical Exam Narrative Exam Narrative: Afebrile. Vital signs noted. HEENT: Normocephalic. Atraumatic. PERRL, EOMI. Neck soft and supple. No point tenderness or step off. Cardiovascular: Regular rate and rhythm. No murmurs, rubs, or gallops appreciated. Respiratory: No tachypnea. Lungs clear to auscultation bilaterally. Gastrointestinal: Abdomen soft, nontender, with normoactive bowel sounds. No rebound or guarding. Neurological: Awake. Alert. Nonfocal, nonlateralizing. Skin: No rash. Normal color. No pallor. Musculoskeletal: No pedal edema. Tenderness at the base of toes on right foot. No crepitance. No bony tenderness at ankle or above. No Homans' sign or palpable cord. Const Vital Signs: 08/08/22 21:18 Temperature 97.4 F L Temperature Source Temporal Pulse Rate 71 Respiratory Rate 16 Blood Pressure 157/84 H Blood Pressure Mean 108 Pulse Ox 99 Oxygen Delivery Method Room Air MDM MDM MDM Narrative Medical decision making narrative: I am not concerned for DVT as the patient is already being treated with blood thinner. She has not having any chest pain or shortness of breath. I do not feel laboratory work is indicated. I do not feel that she needs an emergent DVT study. Additionally, it is unavailable at this hour in the emergency department. Concern is more for toe sprains and foot sprain given her reported injury. X-rays were obtained of the right foot in 3 views. Her dorsalis pedis pulse was dopplered by RN. I interpreted her right foot x-rays in 3 views and while there is no evidence of fracture, there is mild subluxation of the metatarsal phalangeal joint on the fourth digit. I reviewed the radiology report is mild, with overlapping and lateral displacement of the proximal phalanx in relation to the metatarsal head. In discussion with the patient, this accident happened 5 days ago. I discussed patient with Dr. Fox with podiatry. I am unsure as this is a remote injury if I will be able to relocate the proximal phalanx over the metatarsal head. I discussed the patient with Dr. Fox, who suggested that the toe be relocated, and anesthesia block could be performed if necessary. I made a first attempt without anesthesia at the patient's request, and she did not tolerate this well. I did offer her an anesthesia block, but she declined, stating that it takes an hour to an hour and a half for it to set up because she cannot do local anesthetics as well. She prefers to be seen by the specialist. She will be placed in orthotic boot that is short and be weightbearing as tolerated. She was told that her fourth toe is still dislocated. She will discuss with the building pressure washer options for relocation. I feel she can be discharged safely home with follow-up. Return instructions to the emergency department were reviewed. Disposition is discharged home in stable condition. Radiography Diagnostic Testing: Clinical Impression(s) from Imaging Studies Foot X-Ray 08/08/22 21:40 IMPRESSION: Subluxed fourth metatarsal phalangeal joint without acute fracture. Electronically Signed: Campbell Finley MD at 21:55 EDT Reading Location ID and State: [facility] / [place] , Service support , Discharge Plan Triage Chief Complaint: Lower Extremity Injury ED Provider: Raji Toure Dx/Rx/DC Orders Clinical Impression: Foot sprain, Foot swelling, Dislocation of toe of right foot Instructions: ED Foot Sprain, ED Toe Dislocation Prescriptions: No Action lisinopril 20 mg Tablet 20 mg PO DAILY omeprazole 20 mg Capsule,Delayed Release(Dr/Ec) 20 mg PO BID levofloxacin 750 mg tablet 750 mg PO DAILY Qty: 4 0RF diphenhydramine HCl [Benadryl] 50 mg Capsule 50 - 100 mg PO QHS PRN (Reason: ALLERGIES) levothyroxine 75 mcg Tablet 75 mcg PO DAILY gabapentin 300 mg Capsule 300 mg PO BID Xarelto 20 mg Tablet 20 mg PO DAILY Rx Instructions: must administer with evening meal metoprolol succinate 50 mg Capsule,Sprinkle,Er 24hr 50 mg PO DAILY ondansetron 4 mg tablet,disintegrating 4 mg PO Q8H PRN (Reason: nausea and vomiting) Qty: 14 0RF ondansetron [ondansetron] 4 mg tablet,disintegrating 4 mg PO Q8H PRN PRN (Reason: Nausea) Qty: 10 0RF benzonatate 100 mg capsule 100 mg PO TID PRN (Reason: cough) Qty: 20 0RF levofloxacin 750 mg tablet 750 mg PO DAILY Qty: 4 0RF levofloxacin 750 mg tablet 750 mg PO DAILY Qty: 4 0RF benzonatate 200 mg capsule 200 mg PO BID PRN (Reason: cough) Qty: 14 0RF [facility] Referrals: Magno Fox DPM [Med Staff - Active Staff] - [facility] [[facility] - Activity Restrictions/Additional Instructions: Call Dr. Fox's office tomorrow. Your toe is still dislocated. Disposition Disposition: Home, Self Care
--- NOTE | 2022-08-08 21:40 | RAD_ITS ---
STUDY: X-RAY - RIGHT FOOT CLINICAL: Female, 72 years old. Pain, Trauma TECHNIQUE: 3 view(s) of the foot. COMPARISON: None. FINDINGS: Normal talus, calcaneus, and tarsal bones. Normal visualized subtalar, talonavicular, calcaneocuboid, tarsal and tarsometatarsal articulations. Normal metatarsi. Normal metatarsophalangeal joint of the great toe. Normal tibial and fibular sesamoid bones. Normal interphalangeal joint of the great toe. Normal phalanges of the great toe. There appears to be very mild subluxation of the fourth metatarsal phalangeal joint without associated fracture.. There is mild overlapping and lateral displacement of the proximal phalanx with respect to the metatarsal head. Normal interphalangeal joints and phalanges of the lesser toes. The soft tissue structures are unremarkable. RAD/Foot min 3 Views IMPRESSION: Subluxed fourth metatarsal phalangeal joint without acute fracture. Electronically Signed: Campbell Finley MD at 21:55 EDT ,
== END 2022-08-08 22:53 | disposition home or self-care (01) ==
PROVIDERS: Emergency Provider Emergency Medicine; Visit Provider Emergency Medicine
DX: S93.104A Unspecified dislocation of right toe(s), initial encounter (principal); M79.89 Other specified soft tissue disorders; X58.XXXA Exposure to other specified factors, initial encounter
CPT/HCPCS: 73630; 99283

== ENCOUNTER 2022-11-08 17:37 | Emergency (ER) | payer OTHER, SELFPAY ==
[2022-11-08 17:38] VITALS: BP 139/70; PULSE 75; RESP 16; TEMP 36.6; O2SAT 98; BMI 32.3
--- NOTE | 2022-11-08 17:44 | EKG12_ITS ---
Test Reason : Blood Pressure : / mmHG Vent. Rate : 072 BPM Atrial Rate : 072 BPM P-R Int : 124 ms QRS Dur : 074 ms QT Int : 416 ms P-R-T Axes : 044 039 045 degrees QTc Int : 455 ms Normal sinus rhythm Normal ECG Confirmed by TINO GUIDRY, DYLAN ([id number]), purchase request editor JIAN ORTEZ ([id number]) on 11/10/2022 1:27:27 PM Referred By: SUSAN Confirmed By:DARLENE JIMÉNEZ MD
--- NOTE | 2022-11-08 19:07 | EDS_ITS ---
HPI History of Present Illness Chief Complaint: Other, Pain/Inj Informant: patient Narrative Narrative: Patient complains of left-sided neck pain. Patient called into her primary physician's office. Staff there told her to come to the ER because they thought this might be her heart. Patient states her chest does not hurt at all. She has an area on her left upper neck. It hurts. She can look up and down without much pain. But if she lifts her left arm or turns her head to the right she has left-sided neck pain. No numbness tingling weakness. No shortness of breath diaphoresis nausea vomiting or chest pain. No headache. No neurologic symptoms. She cannot think of any injury that she did. There is no swelling. She is on the toe due to a history of DVT but has no areas of bleeding. [facility] Medical History Atrial fibrillation DVT (deep venous thrombosis) GERD (gastroesophageal reflux disease) HTN (hypertension) Hypothyroid Home Medications diphenhydramine HCl 50 mg capsule 50 - 100 mg PO QHS PRN ALLERGIES 03/16/22 [History Last Taken Unknown] gabapentin 300 mg capsule 300 mg PO BID 03/16/22 [History Last Taken Unknown] levofloxacin 750 mg tablet 750 mg PO DAILY #4 tabs 03/16/22 [Rx Last Taken Unknown] levothyroxine 75 mcg tablet 75 mcg PO DAILY 03/16/22 [History Last Taken Unknown] lisinopril 20 mg tablet 20 mg PO DAILY 03/16/22 [History Last Taken Unknown] metoprolol succinate 50 mg capsule sprinkle, ext. release 24 hr 50 mg PO DAILY 03/16/22 [History Last Taken Unknown] omeprazole 20 mg capsule,delayed release 20 mg PO BID 03/16/22 [History Last Taken Unknown] ondansetron 4 mg disintegrating tablet 4 mg PO Q8H PRN nausea and vomiting #14 t abs 03/16/22 [Rx Last Taken Unknown] rivaroxaban 20 mg tablet (Xarelto) 20 mg PO DAILY 03/16/22 [History Last Taken Unknown] ondansetron 4 mg disintegrating tablet 4 mg PO Q8H PRN PRN Nausea #10 tabs 05/21/22 [Rx Last Taken Unknown] benzonatate 100 mg capsule 100 mg PO TID PRN cough #20 caps 07/03/22 [Rx Last Taken Unknown] levofloxacin 750 mg tablet 750 mg PO DAILY #4 tabs 07/03/22 [Rx Last Taken Unknown] benzonatate 200 mg capsule 200 mg PO BID PRN cough #14 caps 07/26/22 [Rx Last Taken Unknown] levofloxacin 750 mg tablet 750 mg PO DAILY #4 tabs 07/26/22 [Rx Last Taken Unknown] hydrocodone-acetaminophen 5-325mg 5mg-325mg 1 tab PO Q6H PRN PRN Pain 3 days #10 TABLETS 11/08/22 [Rx Last Taken Unknown] Allergy/AdvReac Type Severity Reaction Status Date / Time amoxicillin [From Amoxil] Allergy Hives Verified 11/08/22 17:39 doxycycline Allergy Hives Verified 11/08/22 17:39 tramadol Allergy Hives Verified 11/08/22 17:39 azithromycin AdvReac Nausea Verified 11/08/22 17:39 codeine AdvReac Itching Verified 11/08/22 17:39 [id number] Reductase AdvReac Other Verified 11/08/22 17:39 Inhibitor Surgical History H/O section H/O foot surgery H/O spinal fusion History of bilateral knee replacement Social History Smoking Status: Never smoker ROS ROS ED ROS Narrative A complete review of systems was performed and is negative except as documented in the history of present illness. Some specific details below. Constitutional: No recent fevers or chills. No malaise. She does not feel systemically ill. EYE: No discharge, visual complaints, or pain. ENT: No difficulty swallowing. No swelling. No pain. No reflux symptoms. No ear pain or change in hearing. CV: No chest pain palpitations or any chest symptoms Respiratory: No coughing or shortness of breath. No pain with a deep breath. GI: No abdominal pain. No nausea vomiting diarrhea. No blood in stool. : No frequency dysuria or hematuria. Musculoskeletal: No recent trauma. See history of present illness Skin: No rash. Nondiaphoretic. Neuro: No weakness or numbness. Endocrine: No polyuria or polydipsia. EXAM Physical Exam Narrative Exam Narrative: Patient is awake alert sitting comfortably in bed. She does have a towel roll behind her neck and she sits somewhat stiffly. But she carries on normal conversation. HEENT shows no sign of trauma. She has some poor dentition but no sign of infection. No sinus tenderness. Tympanic membranes are clear bilaterally. No tragus tenderness. Eyes show no pain with range of motion or limitation. No injection. Neck shows left upper paraspinal tenderness but no swelling or bruising. I have her look up and down and it slightly limited but not really painful. When she turns to the right she only gets about 30 degrees and then she gets pain and stops. She can turn to the left 45 to 50 degrees. Lifting her left arm causes some pain 2. Her symptoms are very reproducible by palpation and range of motion but there is no swelling or bruising. There is no carotid bruit. Lungs are clear bilaterally with good deep breaths causing no pain. Saturations are normal at 98% on room air showing no hypoxia. Heart is regular. I hear no murmur. She has excellent peripheral pulses x4. Abdomen is soft and nontender. Skin shows no pallor or abnormal bruising or skin changes including near the area of discomfort. Const Vital Signs: 11/08/22 17:38 11/08/22 18:42 Temperature 98 F Temperature Source Temporal Pulse Rate 75 Respiratory Rate 16 Respiratory Pattern Normal Blood Pressure 139/70 H Blood Pressure Mean 93 Pulse Ox 98 Oxygen Delivery Method Room Air MDM MDM MDM Narrative Medical decision making narrative: I talked options with the patient. I do not in any way think this is her heart. Neither does she. I do not think imaging is going to help us. There is no indication for x-ray. I do not think CT is going to find any abnormality. There is no sign of bleeding or trauma. There is no neurologic deficit. I do not see indication for blood work at this time. We will get her something for pain. She has tried Tylenol and that has not helped fully. She cannot take nonsteroidals because of the Xarelto. She has had allergy to tramadol. We will try hydrocodone. If she has any itching she should take Benadryl for this. I have also encouraged ice and rest. We discussed reasons to return that would include worsening pain, any numbness tingling headache skin rash or skin changes weakness or other concerns EKG Initial EKG: Comments: My independent interpretation the patient's EKG done per protocol shows a normal sinus rhythm with a rate of 72. No ventricular ectopy. No acute ST elevation or depression. OR interval, QRS duration and QTc are all normal. This is overall a normal EKG Discharge Plan Triage Chief Complaint: Other, Pain/Inj ED Provider: Andrade Woodson Dx/Rx/DC Orders Clinical Impression: Neck pain on left side Instructions: ED Neck Pain Prescriptions: New hydrocodone-acetaminophen [hydrocodone-acetaminophen] 5-325 mg tablet 1 tab PO Q6H PRN PRN (Reason: Pain) 3 Days Qty: 10 0RF No Action lisinopril 20 mg Tablet 20 mg PO DAILY omeprazole 20 mg Capsule,Delayed Release(Dr/Ec) 20 mg PO BID levofloxacin 750 mg tablet 750 mg PO DAILY Qty: 4 0RF diphenhydramine HCl [Benadryl] 50 mg Capsule 50 - 100 mg PO QHS PRN (Reason: ALLERGIES) levothyroxine 75 mcg Tablet 75 mcg PO DAILY gabapentin 300 mg Capsule 300 mg PO BID Xarelto 20 mg Tablet 20 mg PO DAILY Rx Instructions: must administer with evening meal metoprolol succinate 50 mg Capsule,Sprinkle,Er 24hr 50 mg PO DAILY ondansetron 4 mg tablet,disintegrating 4 mg PO Q8H PRN (Reason: nausea and vomiting) Qty: 14 0RF ondansetron [ondansetron] 4 mg tablet,disintegrating 4 mg PO Q8H PRN PRN (Reason: Nausea) Qty: 10 0RF benzonatate 100 mg capsule 100 mg PO TID PRN (Reason: cough) Qty: 20 0RF levofloxacin 750 mg tablet 750 mg PO DAILY Qty: 4 0RF levofloxacin 750 mg tablet 750 mg PO DAILY Qty: 4 0RF benzonatate 200 mg capsule 200 mg PO BID PRN (Reason: cough) Qty: 14 0RF [facility] [Primary [facility] Provider] - 3-5 Days if not improving Activity Restrictions/Additional Instructions: If hydrocodone causes any itching, try Benadryl. If it continues stop medication. Disposition Disposition: Home, Self Care
[2022-11-08 19:39] VITALS: BP 132/71
== END 2022-11-08 19:51 | disposition home or self-care (01) ==
LOC: ED 19:26
PROVIDERS: Emergency Provider Emergency Medicine; Visit Provider Emergency Medicine
DX: M54.2 Cervicalgia (principal); I10 Essential (primary) hypertension; E03.9 Hypothyroidism, unspecified; K21.9 Gastro-esophageal reflux disease without esophagitis; Z79.01 Long term (current) use of anticoagulants; Z79.890 Hormone replacement therapy; Z79.899 Other long term (current) drug therapy; Z86.718 Personal history of other venous thrombosis and embolism
CPT/HCPCS: 93005; 99282

== ENCOUNTER 2022-11-12 13:50 | Emergency (ER) | payer OTHER, SELFPAY ==
[2022-11-12 13:51] VITALS: BP 134/68; PULSE 73; RESP 18; TEMP 35.9; O2SAT 100; BMI 33.5
--- NOTE | 2022-11-12 14:15 | EX.ED.DYSGE1 ---
HPI <LY Grossman - Last Filed: 11/12/22 15:09> History of Present Illness Chief Complaint: Back Narrative Narrative: 72-year-old female states she picked up her 3 pound kitten and started to rise from her recliner when she developed low back spasms. She had no fall or injury. She took a Flexeril 1 hour ago without relief. She was having trouble walking due to the pain so came in by EMS. She denies history of back problems or surgery. There is no radicular pain or weakness or numbness or tingling. No bladder or bowel incontinence or saddle anesthesia. She states she was here 4 days ago for musculoskeletal neck pain was prescribed hydrocodone. PFSH <LY Grossman - Last Filed: 11/12/22 15:09> [facility] Medical History Atrial fibrillation DVT (deep venous thrombosis) GERD (gastroesophageal reflux disease) HTN (hypertension) Hypothyroid Home Medications diphenhydramine HCl 50 mg capsule 50 - 100 mg PO QHS PRN ALLERGIES 03/16/22 [History Last Taken Unknown] gabapentin 300 mg capsule 300 mg PO BID PRN pain 03/16/22 [History Last Taken Unknown] levothyroxine 75 mcg tablet 75 mcg PO DAILY 03/16/22 [History Last Taken Unknown] lisinopril 20 mg tablet 20 mg PO DAILY 03/16/22 [History Last Taken Unknown] metoprolol succinate 50 mg capsule sprinkle, ext. release 24 hr 50 mg PO DAILY 03/16/22 [History Last Taken Unknown] omeprazole 20 mg capsule,delayed release 20 mg PO BID 03/16/22 [History Last Taken Unknown] ondansetron 4 mg disintegrating tablet 4 mg PO Q8H PRN nausea and vomiting #14 tabs 03/16/22 [Rx Last Taken Unknown] rivaroxaban 20 mg tablet (Xarelto) 20 mg PO DAILY 03/16/22 [History Last Taken Unknown] ondansetron 4 mg disintegrating tablet 4 mg PO Q8H PRN PRN Nausea #10 tabs 05/21/22 [Rx Last Taken Unknown] benzonatate 100 mg capsule 100 mg PO TID PRN cough #20 caps 07/03/22 [Rx Last Taken Unknown] benzonatate 200 mg capsule 200 mg PO BID PRN cough #14 caps 07/26/22 [Rx Last Taken Unknown] hydrocodone-acetaminophen 5-325mg 5mg-325mg 1 tab PO Q6H PRN PRN Pain 3 days #10 TABLETS 11/08/22 [Rx Last Taken Unknown] cyclobenzaprine 10 mg tablet 10 mg PO Q8H PRN muscle spasm 11/12/22 [History Last Taken Unknown] metaxalone 800 mg tablet 800 mg PO TID PRN muscle pain 5 days #15 tabs 11/12/22 [Rx Last Taken Unknown] Allergy/AdvReac Type Severity Reaction Status Date / Time amoxicillin [From Amoxil] Allergy Hives Verified 11/08/22 17:39 doxycycline Allergy Hives Verified 11/08/22 17:39 tramadol Allergy Hives Verified 11/08/22 17:39 azithromycin AdvReac Nausea Verified 11/08/22 17:39 codeine AdvReac Itching Verified 11/08/22 17:39 [id number] Reductase AdvReac Other Verified 11/08/22 17:39 Inhibitor Family History no significant family his Surgical History H/O section H/O foot surgery H/O spinal fusion History of bilateral knee replacement Social History Smoking Status: Never smoker ROS <LY Grossman - Last Filed: 11/12/22 15:09> ROS ED ROS Narrative Constitutional: Negative for fever, chills, malaise. GI: Negative for abdominal pain, nausea, vomiting. : Negative for dysuria. Neuro: Negative for motor/sensory dysfunction. Musc: Negative for joint pain, swelling, trauma. EXAM <LY Grossman - Last Filed: 11/12/22 15:09> Physical Exam Narrative Exam Narrative: CONST: Patient sitting in no acute distress. EYES: Normal inspection. NECK: Normal inspection. RESP: No respiratory distress, CTAB. CVS: Regular rate and rhythm, no murmur, no gallop. ABD: Soft and nontender, no guarding or rebound, nondistended. Back: Normal inspection, bilateral lumbar muscle tenderness, no midline tenderness or step-offs. SKIN: Color normal, no rash, warm, dry, intact. EXTREMITIES: Normal appearance, no pedal edema. 5/5 bilateral hip strength, DF/PF. Normal sensation, 2+ DP pulses. NEURO: Oriented x4. PSYCH: Normal affect. Const Vital Signs: 11/12/22 13:51 Temperature 96.6 F L Temperature Source Temporal Pulse Rate 73 Respiratory Rate 18 Blood Pressure 134/68 H Blood Pressure Mean 90 Pulse Ox 100 Oxygen Delivery Method Room Air <Dr. Jamie Diaz MD - Last Filed: 11/12/22 15:07> Physical Exam Const Vital Signs: 11/12/22 13:51 Temperature 96.6 F L Temperature Source Temporal Pulse Rate 73 Respiratory Rate 18 Blood Pressure 134/68 H Blood Pressure Mean 90 Pulse Ox 100 Oxygen Delivery Method Room Air MDM <LY Grossman - Last Filed: 11/12/22 15:09> [facility] MDM Narrative Medical decision making narrative: History and physical are consistent with musculoskeletal low back pain and spasms. There was no fall, no midline spinal tenderness, no red flags so there is no indication for imaging. She had taken Flexeril prior to arrival so he was treated with hydrocodone and lidocaine patch. She states she would like to try a different muscle relaxer at home so I prescribed Skelaxin. Further narcotics are indicated and she cannot be on NSAIDs due to anticoagulation so I recommended Tylenol and lidocaine patches. She was discharged in stable condition. I have personally performed a face to face assessment of the patient and have reviewed the KATHERINE Note. I performed a substantive portion of the visit including all aspects of the following. My aguilar findings include: History is 72-year-old female back spasms. Prior history. No fall or trauma. Exam is [72-year-old female no acute distress. Vital signs stable afebrile. HEENT exam unremarkable. Lungs clear. Heart regular rhythm. Abdomen soft nontender. Back she has reproducible discomfort with paravertebral soft tissue musculature of the lumbar spine consistent with back spasms. There is no redness or warmth. No fever. No signs of trauma. No bruising. Lower extremities are neurovascularly intact] Medical Decision Making: Patient does not need any labs or imaging. She was treated with a lidocaine patch. And narcotic pain med. She will be discharged home with a muscle relaxant. Other additions or changes: [None] <Dr. Jamie Diaz MD - Last Filed: 11/12/22 15:07> MDM MDM Narrative Medical decision making narrative: I have personally performed a face to face assessment of the patient and have reviewed the KATHERINE Note. I performed a substantive portion of the visit including all aspects of the following. My aguilar findings include: History is 72-year-old female back spasms. Prior history. No fall or trauma. Exam is [72-year-old female no acute distress. Vital signs stable afebrile. HEENT exam unremarkable. Lungs clear. Heart regular rhythm. Abdomen soft nontender. Back she has reproducible discomfort with paravertebral soft tissue musculature of the lumbar spine consistent with back spasms. There is no redness or warmth. No fever. No signs of trauma. No bruising. Lower extremities are neurovascularly intact] Medical Decision Making: Patient does not need any labs or imaging. She was treated with a lidocaine patch. And narcotic pain med. She will be discharged home with a muscle relaxant. Other additions or changes: [None] Discharge Plan Triage Chief Complaint: Back ED Midlevel Provider: Monica Burnett ED Provider: Jamie Diaz Dx/Rx/DC Orders Clinical Impression: Spasm of muscle of lower back Instructions: Relieving Back Pain, ED Muscle Spasm Prescriptions: New metaxalone 800 mg tablet 800 mg PO TID PRN (Reason: muscle pain) 5 Days Qty: 15 0RF Rx Instructions: do not take with flexeril No Action lisinopril 20 mg Tablet 20 mg PO DAILY omeprazole 20 mg Capsule,Delayed Release(Dr/Ec) 20 mg PO BID diphenhydramine HCl [Benadryl] 50 mg Capsule 50 - 100 mg PO QHS PRN (Reason: ALLERGIES) levothyroxine 75 mcg Tablet 75 mcg PO DAILY gabapentin 300 mg Capsule 300 mg PO BID PRN (Reason: pain) Xarelto 20 mg Tablet 20 mg PO DAILY Rx Instructions: must administer with evening meal metoprolol succinate 50 mg Capsule,Sprinkle,Er 24hr 50 mg PO DAILY ondansetron 4 mg tablet,disintegrating 4 mg PO Q8H PRN (Reason: nausea and vomiting) Qty: 14 0RF ondansetron [ondansetron] 4 mg tablet,disintegrating 4 mg PO Q8H PRN PRN (Reason: Nausea) Qty: 10 0RF benzonatate 100 mg capsule 100 mg PO TID PRN (Reason: cough) Qty: 20 0RF benzonatate 200 mg capsule 200 mg PO BID PRN (Reason: cough) Qty: 14 0RF cyclobenzaprine 10 mg tablet 10 mg PO Q8H PRN (Reason: muscle spasm) hydrocodone-acetaminophen [hydrocodone-acetaminophen] 5-325 mg tablet 1 tab PO Q6H PRN PRN (Reason: Pain) 3 Days Qty: 10 0RF Primary Care Provider: [facility] Referrals: [facility] [Primary Care Provider] - Activity Restrictions/Additional Instructions: I prescribed a different muscle relaxer called Skelaxin. You cannot take this at the same time as Flexeril. I also recommend Tylenol every 6 hours and you can buy [id number] lidocaine patches. Disposition Disposition: Home, Self Care
[2022-11-12] MEDS: Lidocaine 5% Patch 1 PATCH TOPICAL (14:37)
[2022-11-12] MEDS: HYDROcodone Bitartrate/Apap 5/325 Tablet PO (14:38)
[2022-11-12 15:22] VITALS: RESP 16
== END 2022-11-12 15:23 | disposition home or self-care (01) ==
PROVIDERS: Emergency Provider Emergency Medicine; Visit Provider Emergency Medicine
DX: M62.838 Other muscle spasm (principal); I48.91 Unspecified atrial fibrillation; I10 Essential (primary) hypertension; E03.9 Hypothyroidism, unspecified; Z86.718 Personal history of other venous thrombosis and embolism; K21.9 Gastro-esophageal reflux disease without esophagitis; Z79.899 Other long term (current) drug therapy; Z79.890 Hormone replacement therapy; Z79.01 Long term (current) use of anticoagulants
CPT/HCPCS: 99285

== ENCOUNTER 2022-11-18 23:58 | Emergency (ER) | payer OTHER, SELFPAY ==
[2022-11-19] VITALS: BP 109/59; PULSE 87; RESP 18; TEMP 37.3; O2SAT 95; BMI 32.3
[2022-11-19 00:15] VITALS: BP 99/61; PULSE 86; O2SAT 96
--- NOTE | 2022-11-19 00:23 | RAD_ITS ---
EXAM: XR Knee 3 Views INDICATION: Female, 72 years old. Right knee pain TECHNIQUE: AP and lateral views COMPARISON: None FINDINGS: There is postoperative change from total knee arthroplasty with patellar resurfacing. The components are normal alignment. There is no matthew instrumentation lucency. There is no acute fracture. There is no knee joint effusion. Soft tissues are unremarkable. RAD/Knee 3 Views IMPRESSION: No acute abnormality of the right knee Electronically Signed: Ryan Alberts MD at 1:40 EDT ,
[2022-11-19] MEDS: Ondansetron 4 MG/2 ML Vial IV (00:50)
[2022-11-19] MEDS: Morphine 4 MG/ML Syringe IV (00:50)
[2022-11-19 00:51] VITALS: BP 81/51; PULSE 73; O2SAT 92
[2022-11-19 01:05] LABS: Absolute Neutrophil Count 3.7 X10^3/uL (2.0-7.7); Basophil# 0.01 X10^3/uL; Basophil% 0.2 % (0-1); Eosinophil# 0.04 X10^3/uL; Eosinophils% 0.8 % (0-5); Hematocrit 36.8 % (37-47); Hemoglobin 11.6 g/dL (12.0-15.0); Lymphocyte % 15.7 % (19-41); Mean Corp Hgb Conc 31.5 g/dL (32-36); Mean Corpuscular Hgb 28.4 pg (27.0-32.0); Mean Corpuscular Volume 90.2 fL (81-99); Mean Platelet Vol. 10.7 fl (6.2-12.0); Monocyte# 0.51 X10^3/uL; NRBC Flagged by Analyzer 0 % (0-5); Neutrophil # 3.72 X10^3/uL (2.7-7.7); Neutrophil % 73.1 % (47-70); Platelet Count 166 K/mm3 (150-450); RBC Distribution Width CV 12.4 % (11.6-14.6); RBC Distribution Width SD 40.7 fl (35.1-43.9); Red Blood Count 4.08 M/mm3 (4.2-5.4); White Blood Count 5.1 K/mm3 (4.4-11.0)
[2022-11-19] MEDS: 0.9% Normal Saline 1,000 ML 999 ML IV (01:11)
[2022-11-19 01:12] LABS: Anion Gap 3 (5-15); BUN 16 mg/dL (7-18); BUN/Creat Ratio 15.2 RATIO (10-20); Calcium,Total 8.5 mg/dL (8.5-10.1); Chloride 107 mmol/L (98-107); Creatinine, Serum 1.05 mg/dL (0.55-1.02); EST Glomerular Filtration Rate 55 mL/min (>60); Est Glom Filt Rate - Afr Amer 66 mL/min (>60); Estimated Creatinine Clearance 40.65 ml/min; Glucose 150 mg/dL (74-106); Potassium 4.2 mmol/L (3.5-5.1); Sodium Level 138 mmol/L (136-145)
[2022-11-19 01:23] LABS: Erythrocyte Sedimentation Rate 12 mm/hr (0-30)
[2022-11-19 01:29] LABS: Lactic Acid 1.6 mmol/L (0.4-1.9)
[2022-11-19 01:30] VITALS: BP 83/49
[2022-11-19 02:15] VITALS: BP 95/53
--- NOTE | 2022-11-19 03:22 | EDS_ITS ---
HPI History of Present Illness Chief Complaint: Lower Extremity Injury Narrative Narrative: Patient is a 72-year-old female with past medical history of hypertension hypothyroidism and paroxysmal atrial fibrillation currently on Xarelto. She states she has had increased pain to her right knee over the past week without any recent trauma or excessive activity. She states that she typically can ambulate on her own but with increased knee pain has had to use a walker. She states this evening she have to go to the bathroom and the pain was so severe she had difficulty walking and therefore comes in for evaluation. Patient states has been taking her Xarelto as directed. She also denies any recent sick symptoms or history of gout. [facility] Medical History Atrial fibrillation DVT (deep venous thrombosis) GERD (gastroesophageal reflux disease) HTN (hypertension) Hypothyroid Home Medications diphenhydramine HCl 50 mg capsule 50 - 100 mg PO QHS PRN ALLERGIES 03/16/22 [History Last Taken Unknown] gabapentin 300 mg capsule 300 mg PO BID PRN pain 03/16/22 [History Last Taken Unknown] levothyroxine 75 mcg tablet 75 mcg PO DAILY 03/16/22 [History Last Taken Unknown] lisinopril 20 mg tablet 20 mg PO DAILY 03/16/22 [History Last Taken Unknown] metoprolol succinate 50 mg capsule sprinkle, ext. release 24 hr 50 mg PO DAILY 03/16/22 [History Last Taken Unknown] omeprazole 20 mg capsule,delayed release 20 mg PO BID 03/16/22 [History Last Taken Unknown] ondansetron 4 mg disintegrating tablet 4 mg PO Q8H PRN nausea and vomiting #14 tabs 03/16/22 [Rx Last Taken Unknown] rivaroxaban 20 mg tablet (Xarelto) 20 mg PO DAILY 03/16/22 [History Last Taken Unknown] ondansetron 4 mg disintegrating tablet 4 mg PO Q8H PRN PRN Nausea #10 tabs 05/21/22 [Rx Last Taken Unknown] benzonatate 100 mg capsule 100 mg PO TID PRN cough #20 caps 07/03/22 [Rx Last Taken Unknown] benzonatate 200 mg capsule 200 mg PO BID PRN cough #14 caps 07/26/22 [Rx Last Taken Unknown] hydrocodone-acetaminophen 5-325mg 5mg-325mg 1 tab PO Q6H PRN PRN Pain 3 days #10 TABLETS 11/08/22 [Rx Last Taken Unknown] cyclobenzaprine 10 mg tablet 10 mg PO Q8H PRN muscle spasm 11/12/22 [History Last Taken Unknown] metaxalone 800 mg tablet 800 mg PO TID PRN muscle pain 5 days #15 tabs 11/12/22 [Rx Last Taken Unknown] oxycodone-acetaminophen 5 mg-325 mg tablet (Percocet) 1 tab PO Q6H PRN pain 5 days #20 tabs 11/19/22 [Rx Last Taken Unknown] Allergy/AdvReac Type Severity Reaction Status Date / Time amoxicillin [From Amoxil] Allergy Hives Verified 11/19/22 00:00 doxycycline Allergy Hives Verified 11/19/22 00:00 tramadol Allergy Hives Verified 11/19/22 00:00 azithromycin AdvReac Nausea Verified 11/19/22 00:00 codeine AdvReac Itching Verified 11/19/22 00:00 [id number]-[id number] Reductase AdvReac Other Verified 11/19/22 00:00 Inhibitor Surgical History H/O section H/O foot surgery H/O spinal fusion History of bilateral knee replacement Social History Smoking Status: Never smoker ROS ROS ED Constitutional Constitutional ED: Denies chills or fever(s) ENT ENT ED: Denies sore throat Cardiovascular Cardiovascular: Denies chest pain, palpitations or racing heartbeat Respiratory/Chest Respiratory/Chest: Denies cough or dyspnea Gastrointestinal Gastrointestinal: Denies abdominal pain, diarrhea, nausea or vomiting Genitourinary Genitourinary ED: Denies dysuria Musculoskeletal Musculoskeletal: Reports arthralgias and other Details: Positive right knee pain Integumentary Denies Abrasions or rash Neurologic Neurologic: Denies headache(s) or paresthesias Hematologic/Lymphatic Hematologic/Lymphatic: Reports easy bleeding and easy bruising EXAM Physical Exam Const Vital Signs: 11/19/22 00:00 11/19/22 00:15 11/19/22 01:30 Temperature 99.1 F Temperature Source Temporal Pulse Rate 87 86 Respiratory Rate 18 Blood Pressure 109/59 L 99/61 83/49 L Blood Pressure Mean 75 73 60 Pulse Ox 95 96 Oxygen Delivery Method Room Air Room Air 11/19/22 00:51 11/19/22 02:15 Temperature Temperature Source Pulse Rate 73 Respiratory Rate Blood Pressure 81/51 L 95/53 L Blood Pressure Mean 61 67 Pulse Ox 92 Oxygen Delivery Method Room Air Positive well nourished, well developed and obese General Appearance ED: well developed Nutritional Appearance: obese HEENT HEENT Narrative: Normocephalic atraumatic Eyes PERRL and EOMs intact bilaterally General Eye ED: Negative for pale conjunctiva Neck supple Resp normal respiratory effort and clear to auscultation bilaterally Cardio regular rate and regular rhythm Rate: other Other Details: Radial and carotid pulses are equal and symmetric Extremity Extremity Narrative: Right lower extremity is neurovascularly intact. Patellar tendon is intact and knee ligaments are stable. There is faint soft tissue swelling noted to the anterior aspect of the right knee. There is faint asymmetric warmth without overlying erythema. No obvious cellulitis or abscess formation. No lymphangitic streaking. Active range of motion is decreased secondary to pain. Neuro oriented x3 and CN's II-XII intact bilaterally Sensorium / Orientation: alert Psych mental status grossly normal Skin no rashes or lesions noted General Skin Exam: Negative for jaundice MDM MDM MDM Narrative Medical decision making narrative: Patient presented to the ER with stable vitals and complaint of right knee pain with no known trauma. Differential diagnosis is for right knee sprain versus hematoma versus gout versus bursitis or septic joint. The patient does not have a fever she is able to flex and extend the knee although it is limited but the active motion goes against septic joint. Plus patient's had no recent instrumentation or procedures of the knee and has denied any sick symptoms. Basic blood work was obtained because of the septic joint concern and her white count ESR and lactic acid are normal. Only elevation is to her CRP which is nonspecific in nature. X-ray revealed no obvious finding. After patient was me dicated she was able to bear weight. Therefore at this time as symptoms appear to be inflammatory not infectious and pain has been improved and I have low concern for DVT or septic joint patient can be discharged home with symptomatic medication and follow-up with orthopedics for further evaluation History & Record Review Discussion w/independent historian: Patient Lab Data Attestation: I reviewed the patient's lab results. Labs: Laboratory Results - last 24 hr 11/19/22 00:40 WBC 5.1 RBC 4.08 L Hgb 11.6 L Hct 36.8 L MCV 90.2 MCH 28.4 MCHC 31.5 L RDW Std Deviation 40.7 RDW Coeff of Kristian 12.4 Plt Count 166 MPV 10.7 Immature Gran % (Auto) 0.200 Neut % (Auto) 73.1 H Lymph % (Auto) 15.7 L [place] % (Auto) 10.0 Eos % (Auto) 0.8 Baso % (Auto) 0.2 Absolute Neuts (auto) 3.7 Absolute Lymphs (auto) 0.80 L Nucleated RBC % 0 ESR 12 Sodium 138 Potassium 4.2 Chloride 107 Carbon Dioxide 28.0 Anion Gap 3 L BUN 16 Creatinine 1.05 H Estim Creat Clear Calc 40.65 Est GFR (MDRD) Af Amer 66 Est GFR (MDRD) Non-Af 55 L BUN/Creatinine Ratio 15.2 Glucose 150 H Lactic Acid 1.6 Calcium 8.5 C-React Prot Ext Range 54.10 H Radiography Diagnostic Testing: Clinical Impression(s) from Imaging Studies Knee X-Ray 11/19/22 00:23 IMPRESSION: No acute abnormality of the right knee Electronically Signed: Ryan Alberts MD at 1:40 EDT , X-ray of the right knee as interpreted by the emergency medicine physician reveals hardware to be intact and in place without joint effusion or periprosthetic fracture Discharge Plan Triage Chief Complaint: Lower Extremity Injury ED Provider: Chadd Devine Dx/Rx/DC Orders Clinical Impression: Knee pain, right, 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, Hypothyroidism, Paroxysmal A-fib Instructions: ED Knee Pain of Uncertain Cause Prescriptions: New oxycodone-acetaminophen [Percocet] 5-325 mg tablet 1 tab PO Q6H PRN (Reason: pain) 5 Days Qty: 20 0RF No Action lisinopril 20 mg Tablet 20 mg PO DAILY omeprazole 20 mg Capsule,Delayed Release(Dr/Ec) 20 mg PO BID diphenhydramine HCl [Benadryl] 50 mg Capsule 50 - 100 mg PO QHS PRN (Reason: ALLERGIES) levothyroxine 75 mcg Tablet 75 mcg PO DAILY gabapentin 300 mg Capsule 300 mg PO BID PRN (Reason: pain) Xarelto 20 mg Tablet 20 mg PO DAILY Rx Instructions: must administer with evening meal metoprolol succinate 50 mg Capsule,Thorinkle,Er 24hr 50 mg PO DAILY ondansetron 4 mg tablet,disintegrating 4 mg PO Q8H PRN (Reason: nausea and vomiting) Qty: 14 0RF ondansetron [ondansetron] 4 mg tablet,disintegrating 4 mg PO Q8H PRN PRN (Reason: Nausea) Qty: 10 0RF benzonatate 100 mg capsule 100 mg PO TID PRN (Reason: cough) Qty: 20 0RF benzonatate 200 mg capsule 200 mg PO BID PRN (Reason: cough) Qty: 14 0RF cyclobenzaprine 10 mg tablet 10 mg PO Q8H PRN (Reason: muscle spasm) metaxalone 800 mg tablet 800 mg PO TID PRN (Reason: muscle pain) 5 Days Qty: 15 0RF Rx Instructions: do not take with flexeril hydrocodone-acetaminophen [hydrocodone-acetaminophen] 5-325 mg tablet 1 tab PO Q6H PRN PRN (Reason: Pain) 3 Days Qty: 10 0RF Primary Care Provider: [facility] [facility] [Primary Care Provider] - Activity Restrictions/Additional Instructions: Please follow-up with the orthopedic physician in order to discuss possible knee aspiration to further elicit the cause of your knee pain. Begin taking the Percocet as prescribed to control any further pain and return to the ER should you have any further concerns Disposition Disposition: Home, Self Care Discharge Date/Time: 11/19/22 04:05
[2022-11-19 03:41] VITALS: BP 110/62; PULSE 68; RESP 16; O2SAT 96
== END 2022-11-19 04:05 | disposition home or self-care (01) ==
PROVIDERS: Emergency Provider Emergency Medicine; Visit Provider Emergency Medicine
DX: M25.561 Pain in right knee (principal); I48.0 Paroxysmal atrial fibrillation; E03.9 Hypothyroidism, unspecified; E66.9 Obesity, unspecified; Z79.01 Long term (current) use of anticoagulants; Z86.718 Personal history of other venous thrombosis and embolism
CPT/HCPCS: 73562; 80048; 83605; 85025; 85652; 86140; 96374; 96375; 99285; J7030; A4216; J2405

== ENCOUNTER 2022-12-03 15:09 | Emergency (ER) | payer OTHER, SELFPAY ==
[2022-12-03 15:10] VITALS: BP 146/89; PULSE 69; RESP 18; TEMP 35.9; O2SAT 98; BMI 32.9
--- NOTE | 2022-12-03 16:21 | CT_ITS ---
STUDY: CT LUMBAR SPINE WITHOUT CONTRAST REASON FOR EXAM: Female, 72 years old. Pain RADIATION DOSAGE (If Supplied By Facility): CTDIvol = ( 15.89 ) mGy, DLP = ( 386.21 ) mGycm TECHNIQUE: The patient was scanned in a multi detector CT scanner. High resolution transaxial imaging was performed. Images were obtained from to . Sagittal and coronal images were reconstructed. Individualized dose optimization techniques were used for this CT. COMPARISON: None FINDINGS: Normal lumbar lordosis. There is no substantial scoliosis. Normal alignment of the lumbar vertebral bodies. Normal vertebrae of the lumbar spine. There is no demonstrated compression deformity or fracture of the visualized lumbar vertebrae. L1-2: Normal endplates. Normal disc height and morphology. Normal bilateral facet joints. Normal central canal and bilateral lateral recesses. Normal bilateral intervertebral neural foramina. L2-3: Normal endplates. Normal disc height and morphology. Normal bilateral facet joints. Normal central canal and bilateral lateral recesses. Normal bilateral intervertebral neural foramina. L3-4: Normal endplates. Normal disc height and morphology. Normal bilateral facet joints. Normal central canal and bilateral lateral recesses. Normal bilateral intervertebral neural foramina. L4-5: Normal endplates. Normal disc height. Mild diffuse disc bulge. Normal bilateral facet joints. Normal central canal and bilateral lateral recesses. Normal bilateral intervertebral neural foramina. L5-S1: Mildly sclerotic endplates. Moderate to severe loss of disc height. Vacuum phenomenon. Mild diffuse disc bulge. No spinal stenosis. Normal visualized paraspinous soft tissue structures. CT/Spine Lumbar without Contrast IMPRESSION: No acute abnormality. Degenerative changes at L4-L5 and L5-S1. Electronically Signed: Hiram Anna MD at 17:34 EDT ,
--- NOTE | 2022-12-03 16:22 | ED.VIS.FEGU ---
HPI HPI - Female History of Present Illness Chief Complaint: Complaint Narrative Narrative: 72-year-old female past medical history of previous lumbar back spasms, degenerative disc disease of the spine presents with urinary frequency and urgency. She relates history that she has had problems with back pain over the last 4 to 5 months. Today, he has had urinary frequency. She has not lost the urge or the feeling that she has to urinate or have a bowel movement but states she took 8 steps to go to the bathroom, did not make it in time. This happened 3 times today. She denies any fevers or chills, no nausea or vomiting, no saddle anesthesia, no radiation of her pain down her legs but states sometimes it is in her left side and buttocks/hip. She is a retired RN. She called the [facility] and was told that she may have a urinary tract infection given her urgency and frequency. She is not diabetic. She presents because of the urinary urgency symptoms. [facility] Medical History Atrial fibrillation DVT (deep venous thrombosis) GERD (gastroesophageal reflux disease) HTN (hypertension) Hypothyroid Home Medications diphenhydramine HCl 50 mg capsule 50 - 100 mg PO QHS PRN ALLERGIES 03/16/22 [History Last Taken Unknown] gabapentin 300 mg capsule 300 mg PO BID PRN pain 03/16/22 [History Last Taken Unknown] levothyroxine 75 mcg tablet 75 mcg PO DAILY 03/16/22 [History Last Taken Unknown] lisinopril 20 mg tablet 20 mg PO DAILY 03/16/22 [History Last Taken Unknown] metoprolol succinate 50 mg capsule sprinkle, ext. release 24 hr 50 mg PO DAILY 03/16/22 [History Last Taken Unknown] omeprazole 20 mg capsule,delayed release 20 mg PO BID 03/16/22 [History Last Taken Unknown] ondansetron 4 mg disintegrating tablet 4 mg PO Q8H PRN nausea and vomiting #14 tabs 03/16/22 [Rx Last Taken Unknown] rivaroxaban 20 mg tablet (Xarelto) 20 mg PO DAILY 03/16/22 [History Last Taken Unknown] ondansetron 4 mg disintegrating tablet 4 mg PO Q8H PRN PRN Nausea #10 tabs 05/21/22 [Rx Last Taken Unknown] benzonatate 100 mg capsule 100 mg PO TID PRN cough #20 caps 07/03/22 [Rx Last Taken Unknown] benzonatate 200 mg capsule 200 mg PO BID PRN cough #14 caps 07/26/22 [Rx Last Taken Unknown] hydrocodone-acetaminophen 5-325mg 5mg-325mg 1 tab PO Q6H PRN PRN Pain 3 days #10 TABLETS 11/08/22 [Rx Last Taken Unknown] cyclobenzaprine 10 mg tablet 10 mg PO Q8H PRN muscle spasm 11/12/22 [History Last Taken Unknown] metaxalone 800 mg tablet 800 mg PO TID PRN muscle pain 5 days #15 tabs 11/12/22 [Rx Last Taken Unknown] oxycodone-acetaminophen 5 mg-325 mg tablet (Percocet) 1 tab PO Q6H PRN pain 5 days #20 tabs 11/19/22 [Rx Last Taken Unknown] Allergy/AdvReac Type Severity Reaction Status Date / Time amoxicillin [From Amoxil] Allergy Hives Verified 12/03/22 15:10 doxycycline Allergy Hives Verified 12/03/22 15:10 tramadol Allergy Hives Verified 12/03/22 15:10 azithromycin AdvReac Nausea Verified 12/03/22 15:10 codeine AdvReac Itching Verified 12/03/22 15:10 [id number] Reductase AdvReac Other Verified 12/03/22 15:10 Inhibitor Surgical History H/O section H/O foot surgery H/O spinal fusion History of bilateral knee replacement Social History Smoking Status: Never smoker ROS ROS ED ROS Narrative Constitutional: No fever, no chills. HEENT: No sore throat. No neck pain. No loss of vision. No rhinorrhea. Cardiovascular: No chest pain. No palpitations. No pedal edema. Respiratory: No cough, no shortness of breath. Abdominal: No abdominal pain. No nausea. No vomiting. Genitourinary: No dysuria. No hematuria. Urinary frequency and urgency. Musculoskeletal: No myalgias. No arthralgias. Lumbar back pain. Radiating across back for 5 months. Neurologic: No headaches. No dizziness. No lightheadedness. Skin: No rash. No change in color. Psychiatric: No depression. No anxiety. EXAM Physical Exam Narrative Exam Narrative: Afebrile. Vital signs noted. HEENT: Normocephalic. Atraumatic. PERRL, EOMI. Neck soft and supple. No point tenderness or step off. Cardiovascular: Regular rate and rhythm. No murmurs, rubs, or gallops appreciated. Respiratory: No tachypnea. Lungs clear to auscultation bilaterally. Gastrointestinal: Abdomen soft, nontender, with normoactive bowel sounds. No rebound or guarding. Neurological: Awake. Alert. Nonfocal, nonlateralizing. Straight leg raising negative bilaterally. Skin: No rash. Normal color. No pallor. Musculoskeletal: No pedal edema. Full range of motion extremities. No vertebral point tenderness or bony step-off. Const Vital Signs: 12/03/22 15:10 Temperature 96.6 F L Temperature Source Temporal Pulse Rate 69 Respiratory Rate 18 Blood Pressure 146/89 H Blood Pressure Mean 108 Pulse Ox 98 Oxygen Delivery Method Room Air MDM MDM MDM Narrative Medical decision making narrative: In the differential diagnosis is lumbar radiculopathy versus UTI. I have low concern for cauda equina as she has no red flag signs, and it sounds like she still has urgency and frequency and the feeling that she needs to urinate, but cannot make it in time to the bathroom. Urinalysis will be obtained and reviewed. I do feel that CT imaging is indicated to look for occult fracture of her vertebrae. She states that she has a muscle relaxer at home that she can take as needed but is not having any pain currently. CT of the lumbar spine was obtained without contrast and radiology report reviewed, she does have degenerative changes with diffuse disc bulging mainly at levels L3 and L4, L4-L5. I see no signs of cauda equina or severe spinal stenosis. She is currently not having back pain she states as well. Her urinalysis is negative for infection after review. I do not feel antibiotics are indicated. She is showing more signs of frequent micturition and overactive bladder. While there are medications available, I do feel that given her age that this best be started by her primary care provider given the multiple side effect profiles of these medications. I do feel that she can be discharged safely home with follow-up. Return instructions to the emergency department were reviewed. I do not feel she requires observation. Disposition is discharged home in stable condition. History & Record Review Discussion w/independent historian: Patient Additional record(s) reviewed:: Prior ED visit Lab Data Attestation: I reviewed the patient's lab results. Labs: Laboratory Results - last 24 hr 12/03/22 16:30 Urine Color Yellow Urine Clarity Clear Urine pH 6.0 Ur Specific [place] 1.020 Urine Protein 15 H Urine Glucose (UA) Normal Urine Ketones 5 H Urine Occult Blood 25 H Urine Nitrite Negative Urine Bilirubin Negative Urine Urobilinogen Normal Ur Leukocyte Esterase Negative Urine RBC 0 SEEN Urine WBC 0 SEEN Ur Squamous Epith Cells 0-5 SEEN Urine Bacteria 1+ Urine Mucus 0 SEEN Radiography Diagnostic Testing: Clinical Impression(s) from Imaging Studies Lumbar Spine CT 12/03/22 16:21 IMPRESSION: No acute abnormality. Degenerative changes at L4-L5 and L5-S1. Electronically Signed: Hiram Anna MD at 17:34 EDT , Discharge Plan Triage Chief Complaint: Complaint ED Provider: Raji Toure Dx/Rx/DC Orders Clinical Impression: Frequent urination, Degenerative joint disease (DJD) of lumbar spine, Urinary urgency Instructions: Overactive Bladder Syndrome (OAB), ED Degenerative Disk Disease Prescriptions: No Action lisinopril 20 mg Tablet 20 mg PO DAILY omeprazole 20 mg Capsule,Delayed Release(Dr/Ec) 20 mg PO BID diphenhydramine HCl [Benadryl] 50 mg Capsule 50 - 100 mg PO QHS PRN (Reason: ALLERGIES) levothyroxine 75 mcg Tablet 75 mcg PO DAILY gabapentin 300 mg Capsule 300 mg PO BID PRN (Reason: pain) Xarelto 20 mg Tablet 20 mg PO DAILY Rx Instructions: must administer with evening meal metoprolol succinate 50 mg Capsule,Sprinkle,Er 24hr 50 mg PO DAILY ondansetron 4 mg tablet,disintegrating 4 mg PO Q8H PRN (Reason: nausea and vomiting) Qty: 14 0RF ondansetron [ondansetron] 4 mg tablet,disintegrating 4 mg PO Q8H PRN PRN (Reason: Nausea) Qty: 10 0RF benzonatate 100 mg capsule 100 mg PO TID PRN (Reason: cough) Qty: 20 0RF benzonatate 200 mg capsule 200 mg PO BID PRN (Reason: cough) Qty: 14 0RF cyclobenzaprine 10 mg tablet 10 mg PO Q8H PRN (Reason: muscle spasm) metaxalone 800 mg tablet 800 mg PO TID PRN (Reason: muscle pain) 5 Days Qty: 15 0RF Rx Instructions: do not take with flexeril hydrocodone-acetaminophen [hydrocodone-acetaminophen] 5-325 mg tablet 1 tab PO Q6H PRN PRN (Reason: Pain) 3 Days Qty: 10 0RF oxycodone-acetaminophen [Percocet] 5-325 mg tablet 1 tab PO Q6H PRN (Reason: pain) 5 Days Qty: 20 0RF [facility] [Primary [facility] Provider] - 3-5 Days Disposition Disposition: Home, Self Care
[2022-12-03 16:53] LABS: Mucous, Urine 0 SEEN /hpf (<or=2+); Red Blood Cells-Urine 0 SEEN /hpf (0-5); White Blood Cells 0 SEEN /hpf (0-5)
[2022-12-03 16:59] LABS: Color, Urine Yellow (Yellow); Glucose, Dipstick Normal (Normal); Ketone-Dipstick 5 mg/dl (Negative); Leukocyte Esterase-Dipstick Negative /ul (Negative); Nitrite-Dipstick Negative (Negative); Occult Blood-Urine 25 /ul (Negative); Protein-Dipstick 15 mg/dl (Negative); Urine Bilirubin Dipstick Negative (Negative); Urine Clarity Clear (Clear); Urine Urobilinogen Normal (Normal)
[2022-12-03 17:13] LABS: Bacteria 1+ /hpf (None Seen); Squamous Epithelial Cells - UA 0-5 SEEN /hpf (5-10)
[2022-12-03 18:39] VITALS: BP 138/74; PULSE 62; RESP 15; O2SAT 98
== END 2022-12-03 18:40 | disposition home or self-care (01) ==
PROVIDERS: Emergency Provider Emergency Medicine; Visit Provider Emergency Medicine
DX: R35.0 Frequency of micturition (principal); M47.816 Spondylosis without myelopathy or radiculopathy, lumbar region; R39.15 Urgency of urination
CPT/HCPCS: 72131; 81001; 99282

== ENCOUNTER 2022-12-25 18:35 | Emergency (ER) | payer OTHER, SELFPAY ==
[2022-12-25 18:37] VITALS: BP 137/68; PULSE 82; RESP 18; TEMP 36.1; O2SAT 97; BMI 33.1
--- NOTE | 2022-12-25 18:56 | EX.ED.DYSGE1 ---
HPI <LY Hsieh - Last Filed: 12/25/22 20:57> History of Present Illness Chief Complaint: Other, Pain/Inj Narrative Narrative: Today due to pain between her shoulder blades that started around 4 AM. The pain is intermittent and is worsened with range of motion of her torso and with taking a deep breath. She denies any injury to the area. She reports a history of A-fib and is on Xarelto. She called the triage nurse at the [facility] and they advised her to come into the ED to be evaluated to rule out cardiac etiology. She reports that while walking in she was walking up the ramp and began to feel slightly short of breath and began having right-sided jaw pain. This has resolved. She denies any history of coronary artery disease or stent placement. [facility] <YL Hsieh - Last Filed: 12/25/22 20:57> [facility] Medical History Atrial fibrillation DVT (deep venous thrombosis) GERD (gastroesophageal reflux disease) HTN (hypertension) Hypothyroid Home Medications diphenhydramine HCl 50 mg capsule 50 - 100 mg PO QHS PRN ALLERGIES 03/16/22 [History Last Taken Unknown] gabapentin 300 mg capsule 300 mg PO BID PRN pain 03/16/22 [History Last Taken Unknown] levothyroxine 75 mcg tablet 75 mcg PO DAILY 03/16/22 [History Last Taken Unknown] lisinopril 20 mg tablet 20 mg PO DAILY 03/16/22 [History Last Taken Unknown] metoprolol succinate 50 mg capsule sprinkle, ext. release 24 hr 50 mg PO DAILY 03/16/22 [History Last Taken Unknown] omeprazole 20 mg capsule,delayed release 20 mg PO BID 03/16/22 [History Last Taken Unknown] ondansetron 4 mg disintegrating tablet 4 mg PO Q8H PRN nausea and vomiting #14 tabs 03/16/22 [Rx Last Taken Unknown] rivaroxaban 20 mg tablet (Xarelto) 20 mg PO DAILY 03/16/22 [History Last Taken Unknown] benzonatate 200 mg capsule 200 mg PO BID PRN cough #14 caps 07/26/22 [Rx Last Taken Unknown] hydrocodone-acetaminophen 5-325mg 5mg-325mg 1 tab PO Q6H PRN PRN Pain 3 days #10 TABLETS 11/08/22 [Rx Last Taken Unknown] cyclobenzaprine 10 mg tablet 10 mg PO Q8H PRN muscle spasm 11/12/22 [History Last Taken Unknown] metaxalone 800 mg tablet 800 mg PO TID PRN muscle pain 5 days #15 tabs 11/12/22 [Rx Last Taken Unknown] oxycodone-acetaminophen 5 mg-325 mg tablet (Percocet) 1 tab PO Q6H PRN pain 5 days #20 tabs 11/19/22 [Rx Last Taken Unknown] Allergy/AdvReac Type Severity Reaction Status Date / Time amoxicillin [From Amoxil] Allergy Hives Verified 12/25/22 18:38 doxycycline Allergy Hives Verified 12/25/22 18:38 tramadol Allergy Hives Verified 12/25/22 18:38 azithromycin AdvReac Nausea Verified 12/25/22 18:38 codeine AdvReac Itching Verified 12/25/22 18:38 [id number] Reductase AdvReac Other Verified 12/25/22 18:38 Inhibitor Surgical History H/O section H/O foot surgery H/O spinal fusion History of bilateral knee replacement Social History Smoking Status: Never smoker ROS <LY Hsieh - Last Filed: 12/25/22 20:57> ROS ED Constitutional Constitutional ED: Denies chills or fever(s) Cardiovascular Cardiovascular: Denies chest pain or palpitations Respiratory/Chest Respiratory/Chest: Reports dyspnea on exertion; Denies cough Gastrointestinal Gastrointestinal: Denies abdominal pain, nausea or vomiting Musculoskeletal Musculoskeletal: Reports back pain; Denies arthralgias Integumentary Denies rash Neurologic Neurologic: Denies weakness EXAM <LY Hsieh - Last Filed: 12/25/22 20:57> Physical Exam Const Vital Signs: 12/25/22 18:37 12/25/22 18:56 Temperature 97 F L Temperature Source Temporal Pulse Rate 82 Respiratory Rate 18 Respiratory Effort Normal Non-Labored Respiratory Pattern Normal Blood Pressure 137/68 H Blood Pressure Mean 91 Pulse Ox 97 Oxygen Delivery Method Room Air Positive well nourished, well developed and no apparent distress General Appearance ED: well developed HEENT Reports normocephalic and head/scalp atraumatic Mouth ED: Yes moist mucous membranes normal Eyes PERRL and EOMs intact bilaterally Neck full ROM and supple Chest Wall inspection of chest normal Resp normal respiratory effort and clear to auscultation bilaterally Cardio regular rate and regular rhythm GI soft to palpation, non-tender, non-distended and no masses Back/Spine normal ROM and normal to inspection Back/Spine Narrative: Pain to palpation to the bilateral thoracic paraspinal muscles. No midline thoracic or lumbar tenderness. Extremity normal to inspection and full ROM Neuro oriented x3, CN's II-XII intact bilaterally, moves all extremities, no focal motor deficits and no sensory deficits noted Sensorium / Orientation: awake and alert Psych mental status grossly normal and thought process normal Skin no rashes or lesions noted and no wounds <Dr. Jamie Diaz MD - Last Filed: 12/25/22 20:34> Physical Exam Const Vital Signs: 12/25/22 18:37 12/25/22 18:56 Temperature 97 F L Temperature Source Temporal Pulse Rate 82 Respiratory Rate 18 Respiratory Effort Normal Non-Labored Respiratory Pattern Normal Blood Pressure 137/68 H Blood Pressure Mean 91 Pulse Ox 97 Oxygen Delivery Method Room Air MDM <LY Hsieh - Last Filed: 12/25/22 20:57> [facility] Narrative Medical decision making narrative: Patient presenting today due to back pain that is reproducible to the thoracic paraspinal muscles only. She was given pain control here and Skelaxin. Labs obtained to rule out leukocytosis, anemia, electrolyte abnormality, and ACS. She has had a DVT in the past she is on Xarelto and is compliant with it, I do not have high suspicion that patient has a PE. Labs overall are unremarkable. EKG is sinus rhythm with occasional PVCs and PACs. On reexamination she reports improvement of her symptoms. She will be discharged home in stable condition and is comfortable with plan. She reports that she does have lidocaine patches at home that she can use and will trial Tylenol. She is to follow-up with her PCP. Chest x-ray negative for any acute findings I have personally performed a face to face assessment of the patient and have reviewed the KATHERINE Note. I performed a substantive portion of the visit including all aspects of the following. My aguilar findings include: History is [72-year-old female complaining of upper back pain. Denies any fall injury or trauma or lifting. No associated chest pain or shortness of breath. No history of PE, DVT, dissection or thoracic aneurysm.] Exam is [well-appearing 72-year-old female. Vital signs stable afebrile. Pulse ox 97% on room air no signs hypoxia. HEENT exam unremarkable. Neck nontender. No JVD. Lungs clear to auscultation bilaterally. Heart regular rhythm rate about 80 no murmur. Chest wall and ribs nontender. Abdomen soft nontender. Moving all 4 extremities. Calves nontender note edema no cords. Radial pulses equal symmetrical. Normal motor strength. Back is tender along the parathoracic soft tissues consistent with skeletal pain. There is no bruising or signs of trauma. No redness or warmth. No signs of bony tenderness. Neurologically she is awake and alert with no focal motor deficits.] Medical Decision Making [72-year-old with back pain appears musculoskeletal. Clinically I do not think this is dissection or cardiac in etiology. She is going to undergo work-up due to her age. But I think this is most likely most skeletal pain.] Other additions or changes: [None] Lab Data Labs: Laboratory Results - last 24 hr 12/25/22 19:06 WBC 5.0 RBC 4.34 Hgb 11.7 L Hct 37.9 MCV 87.3 MCH 27.0 MCHC 30.9 L RDW Std Deviation 39.4 RDW Coeff of Kristian 12.3 Plt Count 168 MPV 10.8 Immature Gran % (Auto) 0.200 Neut % (Auto) 72.1 H Lymph % (Auto) 17.5 L [place] % (Auto) 8.6 Eos % (Auto) 1.2 Baso % (Auto) 0.4 Absolute Neuts (auto) 3.6 Absolute Lymphs (auto) 0.88 Nucleated RBC % 0 Sodium 143 Potassium 4.0 Chloride 110 H Carbon Dioxide 27.0 Anion Gap 6 BUN 18 Creatinine 0.96 Estim Creat Clear Calc 44.46 Est GFR (MDRD) Af Amer 74 Est GFR (MDRD) Non-Af 61 BUN/Creatinine Ratio 18.8 Glucose 105 Calcium 8.3 L Troponin I High Sens 8 Radiography X-Ray: Read by ED Physician and Read by Radiologist Diagnostic Testing: Clinical Impression(s) from Imaging Studies Chest X-Ray 12/25/22 19:08 IMPRESSION: No acute disease Electronically Signed: Elpidio Ariza MD at 19:37 EDT , EKG Initial EKG: Comments: 84 bpm, sinus rhythm with occasional PVCs and PACs, no ST elevation, reviewed and interpreted by attending ED physician. <Dr. Jamie Diaz MD - Last Filed: 12/25/22 20:34> [facility] MDM Narrative Medical decision making narrative: I have personally performed a face to face assessment of the patient and have reviewed the KATHERINE Note. I performed a substantive portion of the visit including all aspects of the following. My aguilar findings include: History is [72-year-old female complaining of upper back pain. Denies any fall injury or trauma or lifting. No associated chest pain or shortness of breath. No history of PE, DVT, dissection or thoracic aneurysm.] Exam is [well-appearing 72-year-old female. Vital signs stable afebrile. Pulse ox 97% on room air no signs hypoxia. HEENT exam unremarkable. Neck nontender. No JVD. Lungs clear to auscultation bilaterally. Heart regular rhythm rate about 80 no murmur. Chest wall and ribs nontender. Abdomen soft nontender. Moving all 4 extremities. Calves nontender note edema no cords. Radial pulses equal symmetrical. Normal motor strength. Back is tender along the parathoracic soft tissues consistent with skeletal pain. There is no bruising or signs of trauma. No redness or warmth. No signs of bony tenderness. Neurologically she is awake and alert with no focal motor deficits.] Medical Decision Making [72-year-old with back pain appears musculoskeletal. Clinically I do not think this is dissection or cardiac in etiology. She is going to undergo work-up due to her age. But I think this is most likely most skeletal pain.] Other additions or changes: [None] History & Record Review Discussion w/independent historian: Patient Additional record(s) reviewed:: Prior inpatient record, Prior outpatient record, Prior ED visit and Prior labs Lab Data Attestation: I reviewed the patient's lab results. Lab results narrative: CBC normal. White count of 5. H&H 11.7 and 37. Platelets 168. Electrolytes gap of 6 normal BUN and creatinine of 0.9. Troponin is 8. Chest chest showed no acute abnormality. Normal cardiac silhouette mediastinum. Labs: Laboratory Results - last 24 hr 12/25/22 19:06 WBC 5.0 RBC 4.34 Hgb 11.7 L Hct 37.9 MCV 87.3 MCH 27.0 MCHC 30.9 L RDW Std Deviation 39.4 RDW Coeff of Kristian 12.3 Plt Count 168 MPV 10.8 Immature Gran % (Auto) 0.200 Neut % (Auto) 72.1 H Lymph % (Auto) 17.5 L [place] % (Auto) 8.6 Eos % (Auto) 1.2 Baso % (Auto) 0.4 Absolute Neuts (auto) 3.6 Absolute Lymphs (auto) 0.88 Nucleated RBC % 0 Sodium 143 Potassium 4.0 Chloride 110 H Carbon Dioxide 27.0 Anion Gap 6 BUN 18 Creatinine 0.96 Estim Creat Clear Calc 44.46 Est GFR (MDRD) Af Amer 74 Est GFR (MDRD) Non-Af 61 BUN/Creatinine Ratio 18.8 Glucose 105 Calcium 8.3 L Troponin I High Sens 8 Radiography Diagnostic Testing: Clinical Impression(s) from Imaging Studies Chest X-Ray 12/25/22 19:08 IMPRESSION: No acute disease Electronically Signed: Elpidio Ariza MD at 19:37 EDT Reading Location ID and State: [address] [place] [address] Tel , Service support , Discharge Plan Triage Chief Complaint: Other, Pain/Inj ED Midlevel Provider: Riana Salter ED Provider: Jamie Diaz Dx/Rx/DC Orders Clinical Impression: SOB (shortness of breath), Musculoskeletal back pain Instructions: ED Back Care Tips, ED Dyspnea Prescriptions: No Action lisinopril 20 mg Tablet 20 mg PO DAILY omeprazole 20 mg Capsule,Delayed Release(Dr/Ec) 20 mg PO BID diphenhydramine HCl [Benadryl] 50 mg Capsule 50 - 100 mg PO QHS PRN (Reason: ALLERGIES) levothyroxine 75 mcg Tablet 75 mcg PO DAILY gabapentin 300 mg Capsule 300 mg PO BID PRN (Reason: pain) Xarelto 20 mg Tablet 20 mg PO DAILY Rx Instructions: must administer with evening meal metoprolol succinate 50 mg Capsule,Sprinkle,Er 24hr 50 mg PO DAILY ondansetron 4 mg tablet,disintegrating 4 mg PO Q8H PRN (Reason: nausea and vomiting) Qty: 14 0RF benzonatate 200 mg capsule 200 mg PO BID PRN (Reason: cough) Qty: 14 0RF cyclobenzaprine 10 mg tablet 10 mg PO Q8H PRN (Reason: muscle spasm) metaxalone 800 mg tablet 800 mg PO TID PRN (Reason: muscle pain) 5 Days Qty: 15 0RF Rx Instructions: do not take with flexeril hydrocodone-acetaminophen [hydrocodone-acetaminophen] 5-325 mg tablet 1 tab PO Q6H PRN PRN (Reason: Pain) 3 Days Qty: 10 0RF oxycodone-acetaminophen [Percocet] 5-325 mg tablet 1 tab PO Q6H PRN (Reason: pain) 5 Days Qty: 20 0RF [facility] [[facility] Provider] - Activity Restrictions/Additional Instructions: Follow-up with your PCP in the next 5 to 7 days and return for any worsening of your symptoms. You can try taking Tylenol for your pain. Disposition Disposition: Home, Self Care
--- NOTE | 2022-12-25 19:08 | RAD_ITS ---
STUDY: X-RAY CHEST REASON FOR EXAM: Female, 72 years old. chest pain TECHNIQUE: Single frontal view of the chest. COMPARISON: July 26, 2022 FINDINGS: Cervical hardware noted. The lungs are clear and expanded. There is no demonstrated pleural abnormality. Annular mitral calcification. Cardiomegaly. Normal mediastinum and tova. Normal visualized pulmonary arteries. Normal visualized aortic arch and descending thoracic aorta. Normal visualized thoracic spine. Normal visualized ribs, clavicles, and shoulders. There is no demonstrated abnormality of the visualized soft tissue structures of the upper abdomen. RAD/Chest 1 View (Portable) IMPRESSION: No acute disease Electronically Signed: Elpidio Ariza MD at 19:37 EDT ,
[2022-12-25 19:12] LABS: Absolute Lymphocyte Count 0.88 X10^3/uL (0.83-4.51); Absolute Neutrophil Count 3.6 X10^3/uL (2.0-7.7); Basophil# 0.02 X10^3/uL; Basophil% 0.4 % (0-1); Eosinophil# 0.06 X10^3/uL; Eosinophils% 1.2 % (0-5); Hematocrit 37.9 % (37-47); Hemoglobin 11.7 g/dL (12.0-15.0); Lymphocyte # 0.88 X10^3/ul (0.83-4.51); Lymphocyte % 17.5 % (19-41); Mean Corp Hgb Conc 30.9 g/dL (32-36); Mean Corpuscular Volume 87.3 fL (81-99); Mean Platelet Vol. 10.8 fl (6.2-12.0); Monocyte# 0.43 X10^3/uL; Monocyte% 8.6 % (0-10); NRBC Flagged by Analyzer 0 % (0-5); Neutrophil # 3.62 X10^3/uL (2.7-7.7); Neutrophil % 72.1 % (47-70); Platelet Count 168 K/mm3 (150-450); RBC Distribution Width CV 12.3 % (11.6-14.6); RBC Distribution Width SD 39.4 fl (35.1-43.9); Red Blood Count 4.34 M/mm3 (4.2-5.4)
[2022-12-25 19:30] LABS: Anion Gap 6 (5-15); BUN 18 mg/dL (7-18); BUN/Creat Ratio 18.8 RATIO (10-20); Calcium,Total 8.3 mg/dL (8.5-10.1); Chloride 110 mmol/L (98-107); Creatinine, Serum 0.96 mg/dL (0.55-1.02); EST Glomerular Filtration Rate 61 mL/min (>60); Est Glom Filt Rate - Afr Amer 74 mL/min (>60); Estimated Creatinine Clearance 44.46 ml/min; Glucose 105 mg/dL (74-106); Sodium Level 143 mmol/L (136-145); Troponin-I HS 8 pg/mL (3.0-54.0)
[2022-12-25] MEDS: Metaxalone 800 MG Tablet PO (20:10)
[2022-12-25] MEDS: Ketorolac 15 MG/ML Vial IV (20:10)
== END 2022-12-25 20:58 | disposition home or self-care (01) ==
PROVIDERS: Physician Assistant; Emergency Provider Emergency Medicine; Visit Provider Emergency Medicine
DX: R06.02 Shortness of breath (principal); I48.91 Unspecified atrial fibrillation; M54.9 Dorsalgia, unspecified; I10 Essential (primary) hypertension; E03.9 Hypothyroidism, unspecified; Z79.01 Long term (current) use of anticoagulants; Z79.899 Other long term (current) drug therapy; Z86.718 Personal history of other venous thrombosis and embolism
CPT/HCPCS: 71045; 80048; 84484; 85025; 93005; 96374; 99285; A4216

== ENCOUNTER 2023-03-24 16:13 | Emergency (ER) | payer OTHER, SELFPAY ==
[2023-03-24 16:14] VITALS: BP 154/76; PULSE 70; RESP 15; TEMP 36.7; O2SAT 100
--- NOTE | 2023-03-24 17:25 | EDS_ITS ---
HPI History of Present Illness Chief Complaint: Other, Pain/Inj Narrative Narrative: 72-year-old female presenting with right mandibular pain x 2 months. She states the pain is sharp and achy. Patient states the pain comes and goes. She does admit to bruxism at night. She states it is severe. Patient denies any trauma. She denies any dental pain as she has lost most of her teeth. Patient states she went to the [facility] last week who told her that she needed to see a dentist for her jaw pain. They gave her nothing for pain. Patient is currently on Xarelto and cannot take NSAIDs. [facility] Medical History Atrial fibrillation DVT (deep venous thrombosis) GERD (gastroesophageal reflux disease) HTN (hypertension) Hypothyroid Home Medications diphenhydramine HCl 50 mg capsule 50 - 100 mg PO QHS PRN ALLERGIES 03/16/22 [History Last Taken Unknown] gabapentin 300 mg capsule 300 mg PO BID PRN pain 03/16/22 [History Last Taken Unknown] levothyroxine 75 mcg tablet 75 mcg PO DAILY 03/16/22 [History Last Taken Unknown] lisinopril 20 mg tablet 20 mg PO DAILY 03/16/22 [History Last Taken Unknown] metoprolol succinate 50 mg capsule sprinkle, ext. release 24 hr 50 mg PO DAILY 03/16/22 [History Last Taken Unknown] omeprazole 20 mg capsule,delayed release 20 mg PO BID 03/16/22 [History Last Taken Unknown] ondansetron 4 mg disintegrating tablet 4 mg PO Q8H PRN nausea and vomiting #14 tabs 03/16/22 [Rx Last Taken Unknown] rivaroxaban 20 mg tablet (Xarelto) 20 mg PO DAILY 03/16/22 [History Last Taken Unknown] benzonatate 200 mg capsule 200 mg PO BID PRN cough #14 caps 07/26/22 [Rx Last Taken Unknown] hydrocodone-acetaminophen 5-325mg 5mg-325mg 1 tab PO Q6H PRN PRN Pain 3 days #10 TABLETS 11/08/22 [Rx Last Taken Unknown] cyclobenzaprine 10 mg tablet 10 mg PO Q8H PRN muscle spasm 11/12/22 [History Last Taken Unknown] metaxalone 800 mg tablet 800 mg PO TID PRN muscle pain 5 days #15 tabs 11/12/22 [Rx Last Taken Unknown] oxycodone-acetaminophen 5 mg-325 mg tablet (Percocet) 1 tab PO Q6H PRN pain 5 days #20 tabs 11/19/22 [Rx Last Taken Unknown] tizanidine 4 mg capsule 4 mg PO TID PRN muscle spasticity #20 caps 03/24/23 [Rx Last Taken Unknown] Allergy/AdvReac Type Severity Reaction Status Date / Time amoxicillin [From Amoxil] Allergy Hives Verified 03/24/23 16:17 doxycycline Allergy Hives Verified 03/24/23 16:17 tramadol Allergy Hives Verified 03/24/23 16:17 azithromycin AdvReac Nausea Verified 03/24/23 16:17 codeine AdvReac Itching Verified 03/24/23 16:17 [id number] Reductase AdvReac Other Verified 03/24/23 16:17 Inhibitor Surgical History H/O section H/O foot surgery H/O spinal fusion History of bilateral knee replacement Social History Smoking Status: Never smoker ROS ROS ED Constitutional Constitutional ED: Denies chills, fever(s) or sweats Eyes Eyes: Denies blurry vision or change in vision ENT ENT ED: Reports other Details: Right-sided jaw pain ; Denies ear pain or sore throat Cardiovascular Cardiovascular: Denies chest pain, palpitations or racing heartbeat Respiratory/Chest Respiratory/Chest: Denies cough, dyspnea or sputum Gastrointestinal Gastrointestinal: Denies abdominal pain, constipation, diarrhea, nausea or vomiting Genitourinary Genitourinary ED: Denies dysuria, hematuria or urinary frequency Musculoskeletal Musculoskeletal: Denies arthralgias, myalgias or neck pain Integumentary Denies abscess, Abrasions or rash Neurologic Neurologic: Denies headache(s), paresthesias or weakness Psychiatric Psychiatric: Denies anxiety, depression, suicidal ideation or suicidal thoughts Endocrine Endocrinology: Denies polydipsia or polyuria EXAM Physical Exam Const Vital Signs: 03/24/23 16:14 03/24/23 16:39 Temperature 98.1 F Temperature Source Temporal Pulse Rate 70 Respiratory Rate 15 Respiratory Effort Normal Non-Labored Respiratory Pattern Normal Blood Pressure 154/76 H Blood Pressure Mean 102 Pulse Ox 100 Oxygen Delivery Method Room Air Positive well nourished General Appearance ED: NAD HEENT HEENT Narrative: Tenderness to palpation at the right temporomandibular joint. No palpable clicks or pops with opening and closing. No swelling. Oropharynx is patent without stridor. No tongue swelling or sublingual edema. Buccal mucosa appears normal. Patient mostly edentulous. Eyes PERRL Resp normal respiratory effort Cardio regular rhythm Neuro oriented x3 and CN's II-XII intact bilaterally Sensorium / Orientation: alert Motor Exam: strength 5/5 throughout Psych mental status grossly normal and thought process normal Skin no rashes or lesions noted and no wounds MDM MDM MDM Narrative Medical decision making narrative: Patient presenting with right jaw pain. On exam she has reproducible tenderness in the right temporomandibular joint. I suspect she has TMJ syndrome based on her exam and her history of bruxism. [facility] I recommended that she use Tylenol, ice. [facility] to get a [facility] that is non-dental in nature. I did director of group counseling program her this is a chronic issue and I do not believe that narcotics are warranted. Patient states that she believes a muscle relaxer may help her so this was provided. Return precautions discussed. Impression: 1. TMJ syndrome Lab Data Attestation: I reviewed the patient's lab results. Discharge Plan Triage Chief Complaint: Other, Pain/Inj ED Provider: Lam Montes Dx/Rx/DC Orders Instructions: ED TMJ Syndrome Prescriptions: New tizanidine 4 mg capsule 4 mg PO TID PRN (Reason: muscle spasticity) Qty: 20 0RF No Action lisinopril 20 mg Tablet 20 mg PO DAILY omeprazole 20 mg Capsule,Delayed Release(Dr/Ec) 20 mg PO BID diphenhydramine HCl [Benadryl] 50 mg Capsule 50 - 100 mg PO QHS PRN (Reason: ALLERGIES) levothyroxine 75 mcg Tablet 75 mcg PO DAILY gabapentin 300 mg Capsule 300 mg PO BID PRN (Reason: pain) Xarelto 20 mg Tablet 20 mg PO DAILY Rx Instructions: must administer with evening meal metoprolol succinate 50 mg Capsule,Sprinkle,Er 24hr 50 mg PO DAILY ondansetron 4 mg tablet,disintegrating 4 mg PO Q8H PRN (Reason: nausea and vomiting) Qty: 14 0RF benzonatate 200 mg capsule 200 mg PO BID PRN (Reason: cough) Qty: 14 0RF cyclobenzaprine 10 mg tablet 10 mg PO Q8H PRN (Reason: muscle spasm) metaxalone 800 mg tablet 800 mg PO TID PRN (Reason: muscle pain) 5 Days Qty: 15 0RF Rx Instructions: do not take with flexeril hydrocodone-acetaminophen [hydrocodone-acetaminophen] 5-325 mg tablet 1 tab PO Q6H PRN PRN (Reason: Pain) 3 Days Qty: 10 0RF oxycodone-acetaminophen [Percocet] 5-325 mg tablet 1 tab PO Q6H PRN (Reason: pain) 5 Days Qty: 20 0RF [facility] - Disposition Disposition: Home, Self Care
== END 2023-03-24 17:38 | disposition home or self-care (01) ==
PROVIDERS: Emergency Provider Student in an Organized Health Care Education/Training Program; Visit Provider Student in an Organized Health Care Education/Training Program
DX: M26.621 Arthralgia of right temporomandibular joint (principal); I48.91 Unspecified atrial fibrillation; I10 Essential (primary) hypertension; K21.9 Gastro-esophageal reflux disease without esophagitis; E03.9 Hypothyroidism, unspecified; Z79.899 Other long term (current) drug therapy; Z86.718 Personal history of other venous thrombosis and embolism; Z79.01 Long term (current) use of anticoagulants
CPT/HCPCS: 99282

== ENCOUNTER → 2023-05-02 | Outpatient (CLI) | payer OTHER, SELFPAY ==
--- NOTE | 2023-05-02 13:54 | BI_ITS ---
MAMMOGRAPHY - BILATERAL SCREENING REASON FOR EXAM: Female, 73 years old. Routine annual screening examination. PERTINENT HISTORY: Non-contributory. TECHNIQUE: Digital bilateral breast christ (3D mammographic acquisition) in the CC and MLO projections. 2-D mediolateral oblique (MLO) and craniocaudad (CC) views of both breasts were obtained. CAD: Full Field Digital Mammography with Computer Added Detection was performed. COMPARISON: No comparison mammograms available at this time. If any prior films become available, an addendum to this report can be generated. FINDINGS: Breast Composition: There are scattered areas of fibroglandular density. There are no dominant masses or suspicious calcifications. No other significant abnormalities are identified. BI/SCRN MAMM (CAD)W/CHRIST BILAT IMPRESSION: Negative screening mammogram. Yearly followup mammogram recommended. (A) ASSESSMENT CATEGORY: BIRADS Category 1: Negative. A letter regarding these results will be sent to the patient by the facility within 30 days. Approximately 10% of breast cancers are not detected by mammography. A normal mammogram should not delay biopsy of a clinically suspicious abnormality. [id number] Electronically Signed: Chris Odonnell MD at 15:29 EST ,
--- NOTE | 2023-05-02 13:54 | BD_ITS ---
STUDY: DUAL ENERGY X-RAY ABSORPTIOMETRY / DXA REASON FOR EXAM: Female, 73 years old. [id number] TECHNIQUE: Bone Mineral Density (BMD) measurements of lumbar spine and bilateral hips were obtained. COMPARISON: None. FINDINGS: Lumbar Spine (L1-L4): g/cm2 (0.754) / T-score (-2.4) / Z-score (-0.2) Findings are suggestive of osteopenia with a high fracture risk. Left Femur Total: g/cm2 (0.781) / T-score (-1.3) / Z-score (0.3) Left Femoral Neck: g/cm2 (0.640) / T-score (-1.9) / Z-score (0.0) Right Femur Total: g/cm2 (0.821) / T-score (-1.0) / Z-score (0.6) Right Femoral Neck: g/cm2 (0.678) / T-score (-1.5) / Z-score (0.4) BD/Dexa Bone Density Study IMPRESSION: The patient is considered osteopenic as outlined below according to World Ernesto Organization (WHO) criteria with a high fracture risk. Reference Information: The T-score is the number of standard deviations above or below the standard which is normal for young adults at their peak bone mineral density. The World Health Organization (WHO) interprets the T-scores as follows: Above -1 Normal bone density Between -1 and -2.5 Osteopenia Equal to / or below -2.5 Osteoporosis As a practical clinical guideline, osteopenia may be graded as follows: Mild -1 through -1.5 Moderate -1.6 through -2.0 Severe -2.1 through -2.4 The Z-score is the number of standard deviations above or below age-matched controls. A Z-score of less than -1.5 would be considered abnormal. References: 1. NIH Osteoporosis and Related Bone Diseases www osteo.org 2. International Society for Clinical Densitometry www iscd.org 3. National Osteoporosis Foundation www nof.org Electronically Signed: Chris Odonnell MD at 13:16 EST ,
--- OUTSIDE RECORDS SUMMARY | 2023-05-02 14:36 | XMS RPT_ITS | CCD ---
Author Name Unknown Address [address] [place] [address] Organization [facility] Care Team Providers Care Maritime Guard Name Role Phone [facility] Primary Care Physician MARIBELL GUIDRY, BRODIE Levine Attending Unavailable OR, [facility] Primary Care Unavailable IMELDA GUIDRY, AMRIT Barajas Attending Unavail able [facility] Primary Care Unavailable ODALYS CLEARY DO Attending Unavailable [facility] Primary Care Unavailable Allergies Allergy Classification Reported Allergen(s) Allergy Type Date of Onset Reaction(s) Facility (2 sources) Amoxicillin; Translations: [amoxicillin] Drug Allergy [facility] (2 sources) Codeine; Translations: [codeine] Drug Allergy [facility] (2 sources) Doxycycline; Translations: [doxycycline] Drug Allergy [facility] (2 sources) HMG-CoA reductase inhibitor; Translations: [statins] Drug allergy [facility] Medications Current Medications Medication Drug Class(es) Dates Sig (Normalized) Sig (Original) acetaminophen 325 mg / oxyCODONE hydrochloride 5 mg oral tablet (2 sources) Opioid Agonist Start: 08-10-2022 End: 08-13-2022 take 1 tablet by mouth every six hours as needed for pain Percocet 5 mg-325 mg oral tablet Dose = 1 tab(s), Oral, q6hr, PRN PRN for pain, X 3 day(s), # 12 tab(s), 0 Refill(s), Subluxation of left toe, 83.5 Start Date: 08/10/22 Stop Date: 08/13/22 Status: Ordered Problems Problem Classification Problem Date Documented Da te Episodic/Chronic Joint disorders and dislocations; trauma-related (1 source) Unspecified subluxation of left toe(s), initial encounter; Translations: [Unspecified subluxation of left toe(s), initial encounter] Onset: 08-10-2022 Episodic Other connective tissue disease (1 source) Spasm; Translations: [Other muscle spasm] Onset: 07-21-2022 Episodic Results Test Name Value Interpretation Reference Range Facil ity Vital Signs Date Time Vital Sign Value Performing Clinician Dorothea abrams 08-10-2022 11:54-0400 Diastolic Blood Pressure Non-Invasive 80 1 ODALYS CLEARY DO [facility] 08-10-2022 11:54-0400 Heart rate 66 /min ODALYS CLEARY DO [facility] 08-10-2022 11:54-0400 Respiratory rate 18 /min ODALYS CLEARY DO [facility] 08-10-2022 11:54-0400 Systolic Blood Pressure Non-Invasive 140 1 ODALYS CLEARY DO [facility] 08-10-2022 10:31-0400 Body temperature 98.24 [degF] ODALYS CLEARY DO [facility] 08-10-2022 10:31-0400 Diastolic Blood Pressure Non-Invasive 84 1 ODALYS CLEARY DO [facility] 08-10-2022 10:31-0400 Heart rate 64 /min ODALYS CLEARY DO [facility] 08-10-2022 10:31-0400 Respiratory rate 18 /min ODALYS CLEARY DO [facility] 08-10-2022 10:31-0400 Systolic Blood Pressure Non-Invasive 142 1 ODALYS CLEARY DO [facility] 07-21-2022 13:43-0400 Body height 160 cm AMRIT SEGURA MD [facility] 07-21-2022 13:43-0400 Body temperature 98.24 [degF] AMRIT SEGURA MD [facility] 07-21-2022 13:43-0400 Body weight 83.5 kg AMRIT SEGURA MD [facility] 07-21-2022 13:43-0400 Diastolic Blood Pressure Non-Invasive 82 1 AMRIT SEGURA MD [facility] 07-21-2022 13:43-0400 Heart rate 64 /min AMRIT SEGURA MD [facility] 07-21-2022 13:43-0400 Respiratory rate 22 /min AMRIT SEGURA MD [facility] 07-21-2022 13:43-0400 Systolic Blood Pressure Non-Invasive 142 1 AMRIT SEGURA MD [facility] Encounters Encounter Date Encounter Type Care Provider Facility Start: 01-03-2023 End: 01-03-2023 Emergency department patient visit BRODIE REYNA MD Facility:B Start: 08-10-2022 End: 08-10-2022 Emergency department patient visit ODALYS CLEARY DO Facility:B Start: 08-10-2022 End: 08-10-2022 Emergency department patient visit ODALYS CLEARY DO [facility] Start: 07-21-2022 End: 07-21-2022 Emergency department patient visit AMRIT SEGURA MD Facility:B Start: 07-21-2022 End: 07-21-2022 Emergency department patient visit AMRIT SEGURA MD [facility] Payers Date Payer Category Payer Unknown [id number] 1950 Unknown [id number] 1950 Unknown [id number] 1950 Unknown [id number] Social History Date Type Detail Facility Tobacco smoking status No Smoking Status Entered [facility] Sex Assigned At Female [facility] Functional Status Date Assessment Result Facility 08-10-2022 Functional Status ID band on, Allergy Band on, Call device within reach, Bed in low position, Wheels locked, Upper/Half-Length side-rails up, Visitor at bedside [facility] 07-21-2022 Functional Status Room check performed [facility] Mental Status Date Assessment Result Facility 08-10-2022 Mental Status Oriented x 4 [facility] 07-21-2022 Mental Status Oriented x 4 [facility] Discharge instructions 08-10-2022 Note Date & Type Note Facility 08-10-2022 Hospital Discharg e instructions Patient Education 08/10/2022 11:32:56 Toe Dislocation Toe Dislocation A toe dislocation occurs when the tissues, or ligaments, that hold the joint together are torn. The bones then move apart, or are dislocated, out of their normal position. This causes pain, swelling, and bruising. Sometimes there is also a small chip fracture. Once the joint is put back into place again, it will take about 6 weeks for the ligaments to heal. During this time, protect your toe from re-injury. Sometimes this is done by taping the injured toe to the one next to it. This is called caroline taping. If your toenail has been severely injured, it may fall off in 1 to 2 weeks. A new one will usually start to grow back within 1 month. Home care Keep your leg raised, or elevated, to reduce pain and swelling. When sleeping, place a pillow under the injured leg. When sitting, support your injured leg so it is above heart level. This is very important during the first 48 hours. Apply an ice pack over the injured area for no more than 15 to 20 minutes. Do this every 3 to 6 hours for the first 24 to 48 hours. After that, use ice packs as needed to ease pain and swelling. To make an ice pack, put ice cubes in a sealed plastic bag. Then wrap the bag in a thin, clean towel or cloth. As the ice melts, be careful not to get the tape, gauze, or splint wet. If you have a removable splint, you may take it off to bathe, then put it back on. If you have a permanent splint, cover your entire foot with [address] 1 bag around the other. Tape each bag at the top end or use rubber bands. Water can still leak in even when your foot is covered. So it's best to keep the splint away from water. If a splint gets wet, you can dry it with a hair-dryer on a cool setting. If caroline tape was applied and it becomes wet or dirty, change it. You may replace it with paper, plastic, or cloth tape. Cloth tape and paper tapes must be kept dry. When re-applying caroline tape, use gauze or cotton padding between your toes. This will prevent the skin from getting moist and breaking down. It is very important to put padding at the web space. This is the small piece of skin that joins the bases of your toes. Keep the caroline tape in place as instructed by your healthcare provider. You may use tpqd-kfn-cheysbe pain medicine to control pain, unless another pain medicine was prescribed. Talk with your provider before using these medicines if you have chronic liver or kidney disease, or ever had a stomach ulcer or gastrointestinal bleeding. If you were given crutches, don t bear weight on your injured foot until you can do so without pain. If you were given a stiff sandal, called a cast shoe, or a special boot, use this until you can walk barefoot without pain. You may return to sports or physical activities as advised by your provider. How long this takes will depend on your injury. You may be able to go back to your activities right away. Or you may need to wait up to 8 weeks. Follow-up care Follow up with your healthcare provider, or as advised. If X-rays were taken, you will be told of any new findings that may affect your care. When to seek medical advice Call your healthcare provider if any of the following occur: The pain or swelling increases Your toes becomes cold, blue, numb, or tingly Your injured toe has redness, warmth, or fluid drainage [id number] [facility] [employer]. [address] [place] [address]. All rights reserved. This information is not intended as a substitute for professional medical care. Always follow your healthcare professional's instructions. Follow Up Care 08/10/2022 10:22:19 With:OR, CLINIC Address: [address] [place] [address] [place] [id number]- When:2-4 days [facility] Clinical Note 08-10-2022 Note Date & Type Note Facility 08-10-2022 Note Discharge Instructions Thank you for allowing [facility] to assist you with your healthcare needs. The following is important discharge information regarding your hospital visit. Diagnosis from Today's Visit Subluxation of left toe Toe pain-swelling What to Do Next Instructions from Your Care Team No qualifying data available. Post Acute Orders No qualifying data available. You Need to Schedule the Following Appointments Follow Up with OR, CLINIC When Within 2-4 days Where: [address] [place] [address] [place] [address]- Allergies Statins amoxicillin codeine doxycycline Medications Please ask your primary doctor or pharmacist before taking any other medication not listed, including over the counter drugs, herbal medications, vitamins and or supplements as they may interact with your home medications. What How Much When Why Instructions Last Dose New acetaminophen-oxyCODONE (Percocet 5 mg-325 mg oral tablet) 1 tab(s) by mouth Every 6 hours as needed for for pain Subluxation of left toe Duration: 3 Days Printed Prescription Please take this list to your next doctor s visit. Bring all medications you take, including over the counter medications, herbals and other supplements with you to your doctor s visit. Patients and families are reminded to discard old lists and to update any records with all medication providers or retail pharmacies. Education Materials Toe Dislocation A toe dislocation occurs when the tissues, or ligaments, that hold the joint together are torn. The bones then move apart, or are dislocated, out of their normal position. This causes pain, swelling, and bruising. Sometimes there is also a small chip fracture. Once the joint is put back into place again, it will take about 6 weeks for the ligaments to heal. During this time, protect your toe from re-injury. Sometimes this is done by taping the injured toe to the one next to it. This is called caroline taping. If your toenail has been severely injured, it may fall off in 1 to 2 weeks. A new one will usually start to grow back within 1 month. Home care Keep your leg raised, or elevated, to reduce pain and swelling. When sleeping, place a pillow under the injured leg. When sitting, support your injured leg so it is above heart level. This is very important during the first 48 hours. Apply an ice pack over the injured area for no more than 15 to 20 minutes. Do this every 3 to 6 hours for the first 24 to 48 hours. After that, use ice packs as needed to ease pain and swelling. To make an ice pack, put ice cubes in a sealed plastic bag. Then wrap the bag in a thin, clean towel or cloth. As the ice melts, be careful not to get the tape, gauze, or splint wet. If you have a removable splint, you may take it off to bathe, then put it back on. If you have a permanent splint, cover your entire foot with [address] 1 bag around the other. Tape each bag at the top end or use rubber bands. Water can still leak in even when your foot is covered. So it's best to keep the splint away from water. If a splint gets wet, you can dry it with a hair-dryer on a cool setting. If caroline tape was applied and it becomes wet or dirty, change it. You may replace it with paper, plastic, or cloth tape. Cloth tape and paper tapes must be kept dry. When re-applying caroline tape, use gauze or cotton padding between your toes. This will prevent the skin from getting moist and breaking down. It is very important to put padding at the web space. This is the small piece of skin that joins the bases of your toes. Keep the caroline tape in place as instructed by your healthcare provider. You may use eirv-aeb-engptab pain medicine to control pain, unless another pain medicine was prescribed. Talk with your provider before using these medicines if you have chronic liver or kidney disease, or ever had a stomach ulcer or gastrointestinal bleeding. If you were given crutches, don t bear weight on your injured foot until you can do so without pain. If you were given a stiff sandal, called a cast shoe, or a special boot, use this until you can walk barefoot without pain. You may return to sports or physical activities as advised by your provider. How long this takes will depend on your injury. You may be able to go back to your activities right away. Or you may need to wait up to 8 weeks. Follow-up care Follow up with your healthcare provider, or as advised. If X-rays were taken, you will be told of any new findings that may affect your care. When to seek medical advice Call your healthcare provider if any of the following occur: The pain or swelling increases Your toes becomes cold, blue, numb, or tingly Your injured toe has redness, warmth, or fluid drainage [id number] [facility]. [address] [place] [address]. All rights reserved. This information is not intended as a substitute for professional medical care. Always follow your healthcare professional's instructions. Additional Information VACCINATE! IT SAVES LIVES! Members of the community who have not yet received the COVID-19 vaccine and would like to receive it can visit one of [facility] vaccine clinics. There are many vaccine clinic locations within the [facility]. For locations and available times, please visit www.gettheshot.coronavirus.[place].gov/. It is important to note that some COVID mobile vaccine clinics are held outdoors and may be canceled in rainy or stormy conditions. To learn more about pediatric vaccinations (ages 5-11), we invite you to visit the [facility] webpage. [email or web address]/[email or web address]-Skqfh-Granoyvznht-Frequently-[email or web address] -Questions.html To learn more about the COVID-19 vaccine, we invite you to visit the CDC website for a list of frequently asked questions. https://www.cdc.gov/coronavirus/2019-n cov/vaccines/faq.html [facility] Patient Portal Access Instructions: Stay connected with your healthcare team and access your personal medical information anytime with the [facility] Patient Portal. If you would like a full copy of your medical records please contact the [facility] Medical Records Department Sunday through Sunday between 8a.m. and 4:30p.m. Please follow the directions below to access the portal: 1.Access the email account you provided upon registration to the [facility].2.Look for an invitation email from [facility].3.Open the email and access the invitation link: Accept Invitation to [facility]4.Fill in the required moralez to create your account. Sign into www.[employer] with your username and password that you created in the above steps to stay up to date. You can then view a summary of results, a summary of your visits, and the ability to download your summaries to your computer or send the information securely to a physician. Remember that your healthcare information is confidential, so carefully consider who you will allow to register on the [facility] Patient Portal for access to your information. You can also access the [facility] Patient Portal on the [employer] marilyn. Simply click on Health Records under Health Data and then click on the [facility] logo. HOW TO SAFELY DISPOSE OF PRESCRIPTION MEDICATIONS Please use one of the following methods to safely dispose of your unused medications. 1.Use a drug disposal kit: the drug disposal pouch allows you to safely discard your old and unused drugs. Ask your nurse to give you one when you are discharged.2.Visit a local take-back location: Many local pharmacies and police departments have programs that collect old and unwanted prescription drugs. Call your local pharmacy or go to http://Silentium.Linksify/0W4Iu7g to find one close to you.3.Make use of household items: Use cat litter or old coffee grounds to dispose medications if other options are not available. Mix your drugs with these household products, seal them in an airtight container and throw it into the garbage. Call [facility]: [phone] to be sure your drugs can be disposed of in this way. Some medicines may require a different approach.4.Never flush your medications down the toilet. IF YOU HAVE BEEN PRESCRIBED AN OPIOIDS FOR PAIN If you have been prescribed an opioid (such as hydrocodone, oxycodone or morphine), it is critical to understand the possible side effects and risks of opioid pain medications. Even when taken as directed, opioids can have several side effects including: Tolerance, meaning you might need to take more of a medication for the same pain relief. Nausea, vomiting and/or constipation. Sleepiness, dizziness, dry mouth, confusion, depression or itching. Physical dependence, meaning you have withdrawal symptoms when a medication is stopped ? this can develop within a few days. KNOW YOUR RESPONSIBILITIES It is important to know exactly how much and how often to take the opioid pain medications you are prescribed. Never take opioids in higher amounts or more often than prescribed. Do not combine opioids with alcohol or other drugs that cause drowsiness, such as benzodiazepines, also known as benzos, including diazepam and alprazolam, muscle relaxants or sleep aids. Never sell or share prescription opioids. This is illegal. Store opioids in a secure place and out of reach of others (including children, family, friends and visitors). The last page(s) of this document has been signed and retained as a CHART COPY Signatures Patient Education Materials Toe Dislocation Medication Leaflets My discharge plan and instructions have been reviewed and explained to me and I,ELLEN KNUTSON understand my current condition and have read and understand these discharge instructions. I have received a written copy of the plan/instructions. If I have questions, I am aware that I should contact my doctor. Patient/Joint Finisher Signature: _ Date/Time: Relationship to Patient: Witness Name/Signature: Date/Time: [facility] Clinical Note 08-10-2022 Note Date & Type Note Facility 08-10-2022 Note ORIGINAL HISTORY: Foot injury, dislocated 4 toe COMPARISON: No FINDINGS: There are no acute fractures. There is subluxation or dislocation at 4th metatarsophalangeal joint. There is irregularity at the 3rd metatarsal head. There is fusion of the 2nd through 5th proximal interphalangeal joints, possibly congenital. IMPRESSION: Mildly dislocated 4th metatarsophalangeal joint. Focal erosion at the 3rd metatarsal head; no other signs of inflammatory arthritis. Interpreted by: Nato Larson MD Preliminary Report By: Nato Larson MD Electronically signed By Nato Larson MD Dictated Date: 08/10/2022 11:09:27 AM Prelim Date: 08/10/2022 11:11:29 AM Sign Date: 08/10/2022 11:11:29 AM Ordering Provider: [facility] Clinical Note 08-10-2022 Note Date & Type Note Facility 08-10-2022 Note ORIGINAL HISTORY: Foot injury, dislocated 4 toe COMPARISON: No FINDINGS: There are no acute fractures. There is subluxation or dislocation at 4th metatarsophalangeal joint. There is irregularity at the 3rd metatarsal head. There is fusion of the 2nd through 5th proximal interphalangeal joints, possibly congenital. IMPRESSION: Mildly dislocated 4th metatarsophalangeal joint. Focal erosion at the 3rd metatarsal head; no other signs of inflammatory arthritis. Interpreted by: Nato Larson MD Preliminary Report By: Nato Larson MD Electronically signed By Nato Larson MD Dictated Date: 08/10/2022 11:09:27 AM Prelim Date: 08/10/2022 11:11:29 AM Sign Date: 08/10/2022 11:11:29 AM Ordering Provider: [facility] Hospital Discharge instructions 07-21-2022 Note Date & Type Note Facility 07-21-2022 Hospital Discharg e instructions Patient Education 07/21/2022 13:48:14 Neck Spasm, No Trauma Neck Spasm A spasm of the neck muscles can happen after a sudden awkward neck movement. Sleeping with your neck in a crooked position can also cause spasm. Some people respond to emotional stress by tensing the muscles of their neck, shoulders, and upper back. If neck spasm lasts long enough, it can cause a headache. The treatment described below will usually help the pain to go away in 5 to 7 days. Pain that continues may need further evaluation or other types of treatment such as physical therapy. Home care Rest and relax the muscles. Use a comfortable pillow that supports the head and keeps the spine in a neutral position. The position of the head should not be tilted forward or backward. A rolled up towel may help for a custom fit. Some people find relief with heat. Heat can be applied with either a warm shower or bath or a moist towel heated in the microwave and massage. Others prefer cold packs. You can make an ice pack by filling a plastic bag that seals at the top with ice cubes or crushed ice and then wrapping it with a thin towel. Try both and use the method that feels best for 15 to 20 minutes, several times a day. Whether using ice or heat, be careful that you don't injure your skin. Never put ice directly on the skin. Always wrap the ice in a towel or other type of cloth. This is very important, especially in people with poor skin sensation. Try to reduce your stress level. Emotional stress can lead to neck muscle tension and get in the way of or delay the healing process. You may use rweq-ymm-xltgwse pain medicine to control pain, unless another medicine was prescribed. If you have chronic liver or kidney disease or ever had a stomach ulcer or gastrointestinal bleeding, talk with your healthcare provider before using these medicines. Follow-up care Follow up with your healthcare provider if your symptoms don't show signs of improvement after one week. Physical therapy or further tests may be needed. If X-rays, CT scans, or MRI scans were taken, you will be told of any new findings that may affect your care. Call 911 Call 911 if you have: Sudden weakness or numbness in one or both arms or legs Neck swelling, trouble with or painful swallowing Trouble breathing Chest pain When to seek medical advice Call your healthcare provider right away if any of these occur: Pain becomes worse or spreads into one or both arms or legs Increasing headache with nausea or vomiting Fever of 100.4 F (38 C) or higher, or as directed by your healthcare provider [place] [id number] [facility]. [address] [place] [address], [place] [address]. All rights reserved. This information is not intended as a substitute for professional medical care. Always follow your healthcare professional's instructions. Follow Up Care 07/21/2022 13:31:14 With:ALFREDO HERNANDEZ MD, [facility] Address: [address] [place] [address] [place] [address] [phone] When:2-4 days With:OR, CLINIC Address: [address] [place] [id number] When:2-4 days [facility] Hospital Clinical Note 07-21-2022 Note Date & Type Note Facility 07-21-2022 Note Discharge Instructions Thank you for allowing [facility] to assist you with your healthcare needs. The following is important discharge information regarding your hospital visit. Diagnosis from Today's Visit Muscle spasm of cervical muscle of neck Neck pain What to Do Next Instructions from Your Care Team No qualifying data available. Post Acute Orders No qualifying data available. You Need to Schedule the Following Appointments Follow Up with ALFREDO HERNANDEZ MD, [facility], Orthopedic When Within 2-4 days Where: [address] [place] [address] [facility] [place] [address]- [phone] Follow Up with OR, CLINIC When Within 2-4 days Where: [address] [place] [id number]- Allergies Statins amoxicillin codeine doxycycline Medications Please ask your primary doctor or pharmacist before taking any other medication not listed, including over the counter drugs, herbal medications, vitamins and or supplements as they may interact with your home medications. What How Much When Why Instructions Last Dose New acetaminophen-oxyCODONE (Percocet 5 mg-325 mg oral tablet) 1 tab(s) by mouth Every 6 hours as needed for Pain Muscle spasm of cervical muscle of neck Duration: 3 Days Printed Prescription Please take this list to your next doctor s visit. Bring all medications you take, including over the counter medications, herbals and other supplements with you to your doctor s visit. Patients and families are reminded to discard old lists and to update any records with all medication providers or retail pharmacies. Medication Leaflets acetaminophen and oxycodone (a SEET a MIN oh fen and OX i KOE done) Endocet 10/325, Endocet 2.5/325, Endocet 5/325, Endocet 7.5/325, Nalocet, Percocet, Primlev What is the most important information I should know about acetaminophen and oxycodone? MISUSE OF OPIOID MEDICINE CAN CAUSE ADDICTION, OVERDOSE, OR . Keep the medication in a place where others cannot get to it. Taking opioid medicine during may cause life-threatening withdrawal symptoms in the . Fatal side effects can occur if you use opioid medicine with alcohol, or with other drugs that cause drowsiness or slow your breathing. Stop taking this medicine and call your doctor right away if you have skin redness or a rash that spreads and causes blistering and peeling. What is acetaminophen and oxycodone? Acetaminophen and oxycodone is a combination medicine used to relieve moderate to severe pain. Acetaminophen and oxycodone contains an opioide medicine and may be habit-forming. Acetaminophen and oxycodone may also be used for purposes not listed in this medication guide. What should I discuss with my healthcare provider before taking acetaminophen and oxycodone? You should not use this medicine if you are allergic to acetaminophen or oxycodone, or if you have: severe asthma or breathing problems; or a blockage in your stomach or intestines. Tell your doctor if you have ever had: breathing problems, sleep apnea; liver disease; a drug or alcohol addiction; kidney disease; a head injury or seizures; urination problems; or problems with your thyroid, pancreas, or gallbladder. If you use opioid medicine while you are , your baby could become dependent on the drug. This can cause life-threatening withdrawal symptoms in the baby after it is born. Babies born dependent on opioids may need medical treatment for several weeks. Ask a doctor before using opioid medicine if you are . Tell your doctor if you notice severe drowsiness or slow breathing in the nursing baby. How should I take acetaminophen and oxycodone? Follow all directions on your prescription label. Never take this medicine in larger amounts, or for longer than prescribed. An overdose can damage your liver or cause . Tell your doctor if you feel an increased urge to use more of this medicine. Never share opioid medicine with another person, especially someone with a history of drug abuse or addiction. MISUSE CAN CAUSE ADDICTION, OVERDOSE, OR . Keep the medicine in a place where others cannot get to it. Selling or giving away opioid medicine is against the law. Measure liquid medicine carefully. Use the dosing syringe provided, or use a medicine dose-measuring device (not a kitchen spoon). If you need surgery or medical tests, tell the doctor ahead of time that you are using this medicine. You should not stop using this medicine suddenly. Follow your doctor's instructions about tapering your dose. Store at room temperature away from moisture and heat. Keep track of your medicine. You should be aware if anyone is using it improperly or without a prescription. Do not keep leftover opioid medication. Just one dose can cause in someone using this medicine accidentally or improperly. Ask your pharmacist where to locate a drug take-back disposal program. If there is no take-back program, flush the unused medicine down the toilet. What happens if I miss a dose? Since this medicine is used for pain, you are not likely to miss a dose. Skip any missed dose if it is almost time for your next dose. Do not use two doses at one time. What happens if I overdose? Seek emergency medical attention or call the Poison Help line at . An overdose of this medicine can be fatal, especially in a child or other person using the medicine without a prescription. Overdose symptoms may include nausea, vomiting, sweating, severe drowsiness, pinpoint pupils, slow breathing, or no breathing. Your doctor may recommend you get naloxone (a medicine to reverse an opioid overdose) and keep it with you at all times. A person caring for you can give the naloxone if you stop breathing or don't wake up. Your caregiver must still get emergency medical help and may need to perform CPR (cardiopulmonary resuscitation) on you while waiting for help to arrive. Anyone can buy naloxone from a pharmacy or local health department. Make sure any person caring for you knows where you keep naloxone and how to use it. What should I avoid while taking acetaminophen and oxycodone? Avoid driving or operating machinery until you know how this medicine will affect you. Dizziness or drowsiness can cause falls, accidents, or severe injuries. Do not drink alcohol. Dangerous side effects or could occur. Ask a doctor or pharmacist before using any other medicine that may contain acetaminophen (sometimes abbreviated as APAP). Taking certain medications together can lead to a fatal overdose. What are the possible side effects of acetaminophen and oxycodone? Get emergency medical help if you have signs of an allergic reaction: hives; difficulty breathing; swelling of your face, lips, tongue, or throat. Opioid medicine can slow or stop your breathing, and may occur. A person caring for you should give naloxone and/or seek emergency medical attention if you have slow breathing with long pauses, blue colored lips, or if you are hard to wake up. In rare cases, acetaminophen may cause a severe skin reaction that can be fatal. This could occur even if you have taken acetaminophen in the past and had no reaction. Stop taking this medicine and call your doctor right away if you have skin redness or a rash that spreads and causes blistering and peeling. Call your doctor at once if you have: noisy breathing, sighing, shallow breathing, breathing that stops; a light-headed feeling, like you might pass out; weakness, tiredness, fever, unusual bruising or bleeding; confusion, unusual thoughts or behavior; problems with urination; liver problems--nausea, upper stomach pain, tiredness, loss of appetite, dark urine, nila-colored stools, jaundice (yellowing of the skin or eyes); low cortisol levels-- nausea, vomiting, loss of appetite, dizziness, worsening tiredness or weakness; or high levels of serotonin in the body--agitation, hallucinations, fever, sweating, shivering, fast heart rate, muscle stiffness, twitching, loss of coordination, nausea, vomiting, diarrhea. Serious breathing problems may be more likely in older adults and in those who are debilitated or have wasting syndrome or chronic breathing disorders. Common side effects include: dizziness, drowsiness, feeling tired; feelings of extreme happiness or sadness; nausea, vomiting, stomach pain; constipation; or headache. This is not a complete list of side effects and others may occur. Call your doctor for medical advice about side effects. You may report side effects to FDA at 3-785-DBF-7322. What other drugs will affect acetaminophen and oxycodone? You may have breathing problems or withdrawal symptoms if you start or stop taking certain other medicines. Tell your doctor if you also use an antibiotic, antifungal medication, heart or blood pressure medication, seizure medication, or medicine to treat HIV or hepatitis C. Opioid medication can interact with many other drugs and cause dangerous side effects or . Be sure your doctor knows if you also use: cold or allergy medicines, bronchodilator asthma/COPD medication, or a diuretic ('water pill'); medicines for motion sickness, irritable bowel syndrome, or overactive bladder; other opioids--opioid pain medicine or prescription cough medicine; a sedative like Valium--diazepam, alprazolam, lorazepam, Xanax, Klonopin, Versed, and others; drugs that make you sleepy or slow your breathing--a sleeping pill, muscle relaxer, medicine to treat mood disorders or mental illness; drugs that affect serotonin levels in your body--a stimulant, or medicine for depression, Parkinson's disease, migraine headaches, serious infections, or nausea and vomiting. This list is not complete. Other drugs may affect acetaminophen and oxycodone, including prescription and vjfz-eem-qxgzsnf medicines, vitamins, and herbal products. Not all possible interactions are listed here. Where can I get more information? Your doctor or pharmacist can provide more information about acetaminophen and oxycodone. Remember, keep this and all other medicines out of the reach of children, never share your medicines with others, and use this medication only for the indication prescribed. Every effort has been made to ensure that the information provided by [employer] ('[employer]') is accurate, up-to-date, and complete, but no guarantee is made to that effect. Drug information contained herein may be time sensitive. [employer] information has been compiled for use by healthcare practitioners and consumers in the [place] and therefore [employer] does not warrant that uses outside of the [place] are appropriate, unless specifically indicated otherwise. [employer] drug information does not endorse drugs, diagnose patients or recommend therapy. [employer] drug information is an informational resource designed to assist licensed healthcare practitioners in caring for their patients and/or to serve consumers viewing this service as a supplement to, and not a substitute for, the expertise, skill, knowledge and judgment of healthcare practitioners. The absence of a warning for a given drug or drug combination in no way should be construed to indicate that the drug or drug combination is safe, effective or appropriate for any given patient. [employer] does not assume any responsibility for any aspect of healthcare administered with the aid of information [employer] provides. The information contained herein is not intended to cover all possible uses, directions, precautions, warnings, drug interactions, allergic reactions, or adverse effects. If you have questions about the drugs you are taking, check with your doctor, nurse or pharmacist. Copyright 7868-4682 [employer] Version: .03. Revision Date: 05/14/2020. Education Materials Neck Spasm A spasm of the neck muscles can happen after a sudden awkward neck movement. Sleeping with your neck in a crooked position can also cause spasm. Some people respond to emotional stress by tensing the muscles of their neck, shoulders, and upper back. If neck spasm lasts long enough, it can cause a headache. The treatment described below will usually help the pain to go away in 5 to 7 days. Pain that continues may need further evaluation or other types of treatment such as physical therapy. Home care Rest and relax the muscles. Use a comfortable pillow that supports the head and keeps the spine in a neutral position. The position of the head should not be tilted forward or backward. A rolled up towel may help for a custom fit. Some people find relief with heat. Heat can be applied with either a warm shower or bath or a moist towel heated in the microwave and massage. Others prefer cold packs. You can make an ice pack by filling a plastic bag that seals at the top with ice cubes or crushed ice and then wrapping it with a thin towel. Try both and use the method that feels best for 15 to 20 minutes, several times a day. Whether using ice or heat, be careful that you don't injure your skin. Never put ice directly on the skin. Always wrap the ice in a towel or other type of cloth. This is very important, especially in people with poor skin sensation. Try to reduce your stress level. Emotional stress can lead to neck muscle tension and get in the way of or delay the healing process. You may use hvej-qpw-htqnxjy pain medicine to control pain, unless another medicine was prescribed. If you have chronic liver or kidney disease or ever had a stomach ulcer or gastrointestinal bleeding, talk with your healthcare provider before using these medicines. Follow-up care Follow up with your healthcare provider if your symptoms don't show signs of improvement after one week. Physical therapy or further tests may be needed. If X-rays, CT scans, or MRI scans were taken, you will be told of any new findings that may affect your care. Call 911 Call 911 if you have: Sudden weakness or numbness in one or both arms or legs Neck swelling, trouble with or painful swallowing Trouble breathing Chest pain When to seek medical advice Call your healthcare provider right away if any of these occur: Pain becomes worse or spreads into one or both arms or legs Increasing headache with nausea or vomiting Fever of 100.4 F (38 C) or higher, or as directed by your healthcare provider Melissa [id number] [employer]. [address] [place] [address]. All rights reserved. This information is not intended as a substitute for professional medical care. Always follow your healthcare professional's instructions. Additional Information VACCINATE! IT SAVES LIVES! Members of the community who have not yet received the COVID-19 vaccine and would like to receive it can visit one of [facility] vaccine clinics. There are many vaccine clinic locations within the [facility]. For locations and available times, please visit www.gettheshot.coronavirus.[place].gov/. It is important to note that some COVID mobile vaccine clinics are held outdoors and may be canceled in rainy or stormy conditions. To learn more about pediatric vaccinations (ages 5-11), we invite you to visit the [facility] webpage. [email or web address].[email or web address]/pages/[email or web address]-Ecviy-Htibubdhzop-Frequently-Asked -Questions.html To learn more about the COVID-19 vaccine, we invite you to visit the CDC website for a list of frequently asked questions. https://www.cdc.gov/coronavirus/2019-n cov/vaccines/faq.html [facility] Patient Portal Access Instructions: Stay connected with your healthcare team and access your personal medical information anytime with the [facility] Patient Portal. If you would like a full copy of your medical records please contact the [facility] Medical Records Department Sunday through Sunday between 8a.m. and 4:30p.m. Please follow the directions below to access the portal: 1.Access the email account you provided upon registration to the hospital.2.Look for an invitation email from [facility].3.Open the email and access the invitation link: Accept Invitation to [facility].Fill in the required moralez to create your account. Sign into www.[employer] with your username and password that you created in the above steps to stay up to date. You can then view a summary of results, a summary of your visits, and the ability to download your summaries to your computer or send the information securely to a physician. Remember that your healthcare information is confidential, so carefully consider who you will allow to register on the [facility] Portal for access to your information. You can also access the [facility] Patient Portal on the [employer] marilyn. Simply click on Health Records under Health Data and then click on the [employer] logo. HOW TO SAFELY DISPOSE OF PRESCRIPTION MEDICATIONS Please use one of the following methods to safely dispose of your unused medications. 1.Use a drug disposal kit: the drug disposal pouch allows you to safely discard your old and unused drugs. Ask your nurse to give you one when you are discharged.2.Visit a local take-back location: Many local pharmacies and police departments have programs that collect old and unwanted prescription drugs. Call your local pharmacy or go to http://Silentium.Linksify/7J5Da3t to find one close to you.3.Make use of household items: Use cat litter or old coffee grounds to dispose medications if other options are not available. Mix your drugs with these household products, seal them in an airtight container and throw it into the garbage. Call [facility]: [phone] to be sure your drugs can be disposed of in this way. Some medicines may require a different approach.4.Never flush your medications down the toilet. IF YOU HAVE BEEN PRESCRIBED AN OPIOIDS FOR PAIN If you have been prescribed an opioid (such as hydrocodone, oxycodone or morphine), it is critical to understand the possible side effects and risks of opioid pain medications. Even when taken as directed, opioids can have several side effects including: Tolerance, meaning you might need to take more of a medication for the same pain relief. Nausea, vomiting and/or constipation. Sleepiness, dizziness, dry mouth, confusion, depression or itching. Physical dependence, meaning you have withdrawal symptoms when a medication is stopped ? this can develop within a few days. KNOW YOUR RESPONSIBILITIES It is important to know exactly how much and how often to take the opioid pain medications you are prescribed. Never take opioids in higher amounts or more often than prescribed. Do not combine opioids with alcohol or other drugs that cause drowsiness, such as benzodiazepines, also known as benzos, including diazepam and alprazolam, muscle relaxants or sleep aids. Never sell or share prescription opioids. This is illegal. Store opioids in a secure place and out of reach of others (including children, family, friends and visitors). The last page(s) of this document has been signed and retained as a CHART COPY Signatures Patient Education Materials Neck Spasm, No Trauma Medication Leaflets acetaminophen and oxycodone My discharge plan and instructions have been reviewed and explained to me and I,ELLEN KNUTSON understand my current condition and have read and understand these discharge instructions. I have received a written copy of the plan/instructions. If I have questions, I am aware that I should contact my doctor. Patient/Joint Finisher Signature: _ Date/Time: Relationship to Patient: Witness Name/Signature: Date/Time: [facility] Evaluation + Plan note Note Date & Type Note Facility Evaluation + Plan note No data available for this section [facility] Summary Purpose Family History No Family History Records Found Advance Directives No Advanced Directives Records Found Additional Source Comments Patient Care team informatio n (unrecognized section and content) Care Team Personnel Name: OR, [facility] Position: Physician Member Role: Primary Care Physician Address: Address: [address] [place] [address] Name: AMRIT SEGURA MD Position: ED Physician Member Role: Attending Physician Address: Address: [facility] [address] Name: Renate Leahy RN Position: AO RN Member Role: ED RN Care Team Personnel Name: OR, [facility] Position: Physician Member Role: Primary Care Physician Address: Address: [address] [place], [place] [address] Name: ODALYS CLEARY DO Position: ED Physician Member Role: ED Physician Address: Address: [facility] [address] [place], [place] [address] Name: Mara Ordaz RN Position: AO RN Member Role: ED RN INFORMATION SOURCE (unrecogn ized section and content) FOR RECORDS PERTAINING TO PATIENTS WHO ARE OR HAVE BEEN ENROLLED IN A CHEMICAL DEPENDENCY/SUBSTANCEABUSE PROGRAM, SOME INFORMATION MAY BE OMITTED. This clinical summary was aggregated from multiple sources. Caution should be exercised in using it in the provision of clinical care. This summary normalizes information from multiple sources, and as a consequence, information in this document may materially change the coding, format and clinical context of patient data. In addition, data may be omitted in some cases. CLINICAL DECISIONS SHOULD BE BASED ON THE PRIMARY CLINICAL RECORDS. [employer] provides no warranty or guarantee of the accuracy or completeness of information in this document.
== END | disposition home or self-care (01) ==
LOC: OPBD 13:53
PROVIDERS: Referring Provider Family Medicine; Visit Provider Family Medicine
DX: Z12.31 Encounter for screening mammogram for malignant neoplasm of breast (principal); M81.0 Age-related osteoporosis without current pathological fracture
CPT/HCPCS: 77063; 77067; 77080